=== PATIENT | female | born 1945 | race Caucasian/White ===

== ENCOUNTER 2020-01-08 08:11 | Outpatient (REF) | payer MEDICARE, OTHER, SELFPAY ==
--- NOTE | 2020-01-08 | MM_ITS ---
EXAMINATION: BONE DENSITOMETRY CLINICAL INDICATION: Disorders of bone. COMPARISON: Baseline BD dated 10/18/2017. TECHNIQUE: Using a [employer] DXA System (software version: 13.1) manufactured by [employer], dual-energy x-ray absorptiometry was performed of the lumbar spine and left hip. The images are of good technical quality. Summary results are attached. FINDINGS: AP SPINE L1-L3 (excluding L4): The data of L1-L4 has been changed to exclude the L4 vertebral body, because degenerative changes at this level may cause overestimation of lumbar spine density. Current: BMD 0.983 g/cm2, Z-score -0.4, T-score -1.6, osteopenia, 8.0% decrease from baseline (<5% change is not significant). Baseline: BMD 1.069 g/cm2. LEFT FEMUR, NECK: Current: BMD 0.773 g/cm2, Z-score -0.5, T-score -1.9, osteopenia. Baseline: BMD 0.790 g/cm2. LEFT FEMUR, TOTAL: Current: BMD 0.886 g/cm2, Z-score 0.2, T-score -1.0, normal, 1.6% increase from baseline (<5% change is not significant). Baseline: BMD 0.872 g/cm2. IDENTIFIED RISK FACTORS: Secondary osteoporosis (intestinal or bowel disease). Menopause. HISTORY OF FRACTURE: None listed. MEDICATIONS: Calcium supplement and/or multivitamin. Vitamin D. IMPRESSION: 1. DIAGNOSIS: Osteopenia based on the lowest T-score value of -1.9 in the femoral neck applying World Health Organization criteria. 2. 10-YEAR FRACTURE RISK PREDICTION, FRAX: Major osteoporotic fracture (clinical spine, forearm, hip or shoulder) 11.6%. Hip fracture 2.4%. 3. Treatment Recommendations: NOF guidelines recommend consideration for treatment in postmenopausal women and men age 50 and older presenting with the following: -A hip or vertebral (clinical or morphometric) fracture. -T-score less than or equal to -2.5 at the femoral neck or spine after appropriate evaluation to exclude secondary causes. -Low bone mass at the hip or spine and a 10-year fracture probability by FRAX of greater than or equal to 3% for hip fracture or greater than or equal to 20% for major osteoporotic fracture based on the [place] adapted WHO algorithm. 4. Other Recommendations: All treatment decisions require clinical judgment and consideration of individual patient factors, including patient preferences, comorbidities, previous drug use, risk factors not captured in the FRAX model (e.g. frailty, falls, vitamin D deficiency, increased bone turnover, interval significant decline in bone density) and possible under or overestimation of fracture risk by FRAX. Additional medical evaluation for secondary cause of low bone mineral density may be appropriate. FUTURE SCAN RECOMMENDATION: People with diagnosed cases of osteoporosis or at high risk for fracture should have regular bone mineral density tests. For patients eligible for Medicare, routine testing is allowed once every 2 years. The testing frequency can be increased to one year for patients who have rapidly progressing disease, those who are receiving or discontinuing medical therapy to restore bone mass, or have additional risk factors.
== END 2020-01-08 08:12 | disposition home or self-care (01) ==
LOC: HO.MAMMO 08:11
PROVIDERS: PCP Internal Medicine; Visit Provider Internal Medicine
DX: Z13.820 Encounter for screening for osteoporosis (principal); M85.80 Other specified disorders of bone density and structure, unspecified site; M85.9 Disorder of bone density and structure, unspecified; Z78.0 Asymptomatic menopausal state; Z79.899 Other long term (current) drug therapy
CPT/HCPCS: 77080

== ENCOUNTER 2021-01-10 08:06 | Outpatient (REF) | payer MEDICARE, OTHER, SELFPAY ==
[2021-01-10 10:19] LABS: MANUAL DIFF FLAG NO
[2021-01-10 10:29] LABS: Basophils Percent Auto 0.6 % (0-2); Eosinophils Percent Auto 0.8 % (0-4); Hematocrit 41.5 % (37-47); Hemoglobin 13.7 g/dl (12.0-16.0); Imm Gran Abs Auto 0.01 X10*3/uL (0.00-0.03); Imm Gran Pct Auto 0.2 % (0.0-0.4); Lymphocytes Absolute Auto 1.4 X10*3/uL (1.2-4.9); Lymphocytes Percent Auto 28.5 % (20-40); Mean Corpuscular Hemoglobin 32.9 pg (27.0-33.0); Mean Corpuscular Volume 99.8 fL (80-98); Mean Platelet Volume 10.9 fL (9.4-12.3); Monocytes Absolute Auto 0.5 X10*3/uL (0.1-1.2); Monocytes Percent Auto 10.2 % (2-11); Neutrophils Absolute Auto 2.9 X10*3/uL (2.0-8.3); Neutrophils Percent Auto 59.7 % (45-73); Platelet Count 264 X10*3/uL (160-400); Red Blood Count 4.16 X10*6/uL (4.20-5.50); Red Cell Distribution Width 11.4 % (11.0-16.0); White Blood Count 4.8 X10*3/uL (4.8-10.8)
[2021-01-10 11:03] LABS: Alanine Aminotransferase 16 U/L (0-31); Albumin Level 4.1 g/dL (3.5-5.0); Alkaline Phosphatase 73 U/L (39-117); Anion Gap 11 (12-20); Aspartate Amino Transferase 18 U/L (5-31); Bilirubin Total 0.8 mg/dL (0.0-1.0); Blood Urea Nitrogen 15 mg/dL (9-16); Calcium 9.7 mg/dL (8.4-10.2); Carbon Dioxide 28 mmol/L (22-29); Chloride 106 mmol/L (96-108); Cholesterol 147 mg/dL; Estimated Glomerular Filt Rate > 60; Glucose Random 105 mg/dL (60-115); HDL Cholesterol 57 mg/dL; LDL Cholesterol Calculated 73 mg/dl; Potassium 4.3 mmol/L (3.3-5.1); Sodium 141 mmol/L (135-145); Total Protein 7.1 g/dL (6.5-8.0); Triglycerides 87 mg/dL
[2021-01-10 11:26] LABS: Free T4 (Free Thyroxine) 1.05 ng/dL (0.71-1.85); Thyroid Stimulating Hormone 2.41 uIU/mL (0.32-4.0); Vitamin D 25-OH Total 39.8 ng/mL (>30)
[2021-01-10 11:32] LABS: Folate > 20.0 ng/mL (> or = 4.0); Vitamin B12 828 pg/mL (200-900)
== END 2021-01-10 08:07 | disposition home or self-care (01) ==
LOC: HO.10HDL 08:06
PROVIDERS: Visit Provider Internal Medicine
DX: E78.00 Pure hypercholesterolemia, unspecified (principal)
CPT/HCPCS: 36415; 80053; 80061; 82306; 82607; 82746; 84439; 84443; 85025

== ENCOUNTER → 2021-01-17 08:46 | Outpatient (BNVA) | payer MEDICARE, OTHER, SELFPAY | PROVIDERS: PCP Internal Medicine; Referring Provider Internal Medicine; Visit Provider Internal Medicine Cardiovascular Disease | DX: E78.00 Pure hypercholesterolemia, unspecified (principal) | CPT/HCPCS: 93005; 99212 ==

== ENCOUNTER 2021-10-04 07:45 | Day surgery (SDC) | payer MEDICARE, OTHER, SELFPAY ==
[2021-09-28 14:07] VITALS: BMI 31.7
--- NOTE | 2021-10-03 11:00 | HO.ANESPROP2 ---
Documented by User: Belem Milner NP 10/03/21 11:04 HPI - Anesthesia Eval Consult details Narrative: 76yo F for Colonoscopy PMFSH Active Problems Active Problems: All Active Problems (Updated 09/28/21 @ 14:01 by Pallavi Valle RN) Osteoarthritis of knees, bilateral (Acute) Annual physical exam (Acute) Osteopenia (Acute) Eczematous skin lesions (Acute) Obesity (BMI 30.0-34.9) (Acute) Age-related osteoporosis without current pathological fracture (Acute) COPD (chronic obstructive pulmonary disease) (Acute) GERD (gastroesophageal reflux disease) (Acute) Hypercholesterolemia (Acute) Past Medical History Medical History Allergic rhinitis COPD (chronic obstructive pulmonary disease) Diverticular disease Fibroids GERD (gastroesophageal reflux disease) Hypercholesterolemia 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 Pulmonary nodules Surgical History Surgical History H/O colonoscopy History of arthroplasty of right knee History of left knee replacement Lipoma Social History Social History Housing: House Alcohol intake: never Patient Tobacco Use Status: Never used Tobacco e-Cigarette/Vaping Use: Never Used Second Hand Smoke Exposure: No Use of substances other than those prescribed or required for medical reasons: No Are you DNR?: No Advance Directives: No Advance Directives Information Provided: Yes Patient : No service: No Current occupational status: retired Cognitive needs: No Hearing needs: No Vision needs: No Meds Allergies Allergy/AdvReac Type Severity Reaction Status Date / Time loratadine [Claritin] Allergy Mild Anxiety Verified 09/28/21 14:06 Robitussin Maximum Strength Allergy Mild Anxiety Uncoded 01/12/21 12:40 Home Medications Medication Instructions Recorded Confirmed Last Taken Type ascorbic acid (vitamin C) 500 mg 1,000 mg PO DAILY 01/12/21 09/28/21 Unknown History capsule cholecalciferol (vitamin D3) 25 25 mcg PO DAILY 01/12/21 09/28/21 Unknown History mcg (1,000 unit) capsule tumeric 100 mg-shaka 150 mg-olive 1 cap PO BID 01/12/21 10/04/21 09/29/21 History 50 mg-oreg 150 mg-caprylate capsule flaxseed oil 1,000 mg capsule 1,000 mg PO DAILY 09/28/21 09/28/21 Unknown History lactobacillus combo no.11 15 1 cap PO DAILY 09/28/21 09/28/21 Unknown History billion cell sprinkle capsule Exam Exam Date and Time: October 03, 2021 1100 Height,Weight and Vital Signs: Height 5 ft 4 in Weight 83.915 kg Pertinent Lab Results Pertinent Lab Results: Laboratory Tests 01/10/21 01/10/21 08:10 08:10 WBC 4.8 Hgb 13.7 Hct 41.5 Plt Count 264 Sodium 141 Potassium 4.3 Chloride 106 Carbon Dioxide 28 BUN 15 Creatinine 0.79 Narrative Narrative: EKG 12/2020 normal sinus rhythm with normal EKG Assessment and Plan Assessment Anesthesia Assessment: Chart Reviewed Documented by User: Evon Kinney MD 10/04/21 09:08 [facility] Past Medical History Medical History Allergic rhinitis COPD (chronic obstructive pulmonary disease) Diverticular disease Fibroids GERD (gastroesophageal reflux disease) Hypercholesterolemia 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 Pulmonary nodules Functional capacity: independent ambulation Patient : No Family History Family history of problems with anesthesia: No Surgical History Surgical History H/O colonoscopy History of arthroplasty of right knee History of left knee replacement Lipoma History of Problems with Anesthesia: No Social History Social History Housing: House Alcohol intake: never Patient Tobacco Use Status: Never used Tobacco e-Cigarette/Vaping Use: Never Used Second Hand Smoke Exposure: No Use of substances other than those prescribed or required for medical reasons: No Are you DNR?: No Advance Directives: No Advance Directives Information Provided: Yes Patient : No service: No Current occupational status: retired Cognitive needs: No Hearing needs: No Vision needs: No Meds Allergies Allergy/AdvReac Type Severity Reaction Status Date / Time loratadine [Claritin] Allergy Mild Anxiety Verified 09/28/21 14:06 Robitussin Maximum Strength Allergy Mild Anxiety Uncoded 01/12/21 12:40 Home Medications Medication Instructions Recorded Confirmed Last Taken Type ascorbic acid (vitamin C) 500 mg 1,000 mg PO DAILY 01/12/21 09/28/21 Unknown History capsule cholecalciferol (vitamin D3) 25 25 mcg PO DAILY 01/12/21 09/28/21 Unknown History mcg (1,000 unit) capsule tumeric 100 mg-shaka 150 mg-olive 1 cap PO BID 01/12/21 10/04/21 09/29/21 History 50 mg-oreg 150 mg-caprylate capsule flaxseed oil 1,000 mg capsule 1,000 mg PO DAILY 09/28/21 09/28/21 Unknown History lactobacillus combo no.11 15 1 cap PO DAILY 09/28/21 09/28/21 Unknown History billion cell sprinkle capsule Exam Airway Mallampati Class: II TM Dist: >3cm Neck ROM: Full Heart: RRR Lungs: CTA Assessment and Plan Final Anesthetic Review Family History of Problems with Anesthesia: No History of Problems with Anesthesia: No ASA Class: II Final Preanesthetic Review: No Changes in Pt Med Stat, Meds/Allgs Chart Reviewed, Consent Obtained/Reviewed and Anes Risks/Benef Reviewed Patient Risk: Low Procedure Risk: Low Anesthetic Plan Anesthetic Plan: MAC: Disposition: Standard PACU
[2021-10-04 08:13] VITALS: BMI 30.5
[2021-10-04 08:17] VITALS: BP 154/82; PULSE 75; RESP 18; TEMP 35.9; O2SAT 97
[2021-10-04] MEDS: Lactated Ringers 1,000 ML 100 ML IVCONT (08:20)
--- NOTE | 2021-10-04 08:56 | MHC.SHP ---
Pre-Procedural Eval Section A Date of Service: 10/04/21 Section B Chief Complaint: screening Details of Present Illness: see H&P no changes Relevant Family History (Specify if Yes): No Relevant Social History: None Present Medications: see Short Stay Collaborative assessment Medical History: No relevant PMH History of Previous Operations: No relevant previous surgery Allergies: Allergies Allergy/AdvReac Type Severity Reaction Status Date / Time loratadine [Claritin] Allergy Mild Anxiety Verified 09/28/21 14:06 Robitussin Maximum Strength Allergy Mild Anxiety Uncoded 01/12/21 12:40 Review of Systems Sugical H&P ROS: Negative: Constitution, Cardiovascular, Respiratory, Neurological, Psychiatric, Hem-Onc, Allergic/Immunologic, Gastrointestinal, Genitourinary, Musculoskeletal, Integumentary, Endocrine and Eyes/Ears/Nose/Throat Exam Surgical H&P Exam: Normal: HEENT, Normal: Heart, Normal: Lungs, Normal: Extremities, Normal: Abdomen, Normal: Skin and Normal: Neurological Plan Diagnosis/Plan: Unchanged I have reviewed the history and physical and performed a pertinent physical examination on my patient. No changes have occurred unless specified.
--- NOTE | 2021-10-04 09:22 | P.BOP_ITS ---
Brief Operative Note Date of Service: 10/04/21 Pre-op diagnosis: screening Post-op diagnosis: same Surgeon: Shine Cantu Anesthesia: MAC Was an Prepress Stripper used for this Procedure?: No Estimated blood loss (mL): 2 Pathology: other Condition: stable Disposition: PACU
[2021-10-04 09:24] VITALS: BP 95/48; PULSE 62; RESP 16; TEMP 36.1; O2SAT 95
[2021-10-04 09:39] VITALS: BP 115/65; PULSE 68; RESP 16; O2SAT 98
[2021-10-04 09:54] VITALS: BP 121/67; PULSE 62; RESP 16; TEMP 36.1; O2SAT 98
--- NOTE | 2021-10-04 11:01 | HO.POSTANES ---
Post Anesthesia Evaluation Post Anesthesia Evaluation Vital Signs: Vital Signs Temp Pulse Resp BP Pulse Ox O2 Del Method 10/04/21 09:54 97.0 F 62 16 121/67 98 Room Air 10/04/21 09:39 68 16 115/65 98 Room Air 10/04/21 09:24 97.0 F 62 16 95/48 L 95 Room Air 10/04/21 08:17 96.7 F L 75 18 154/82 H 97 Room Air Anesthesia: Monitored Mental Status: Awake Pain Control: Satisfactory Nausea/Vomiting: None Hydration: Adequate Anesthesia-Related Issues: No Anes. Related Issues
--- NOTE | 2021-10-04 12:00 | OP_ITS ---
SURGEON: Shine Cantu MD INDICATIONS: Colon cancer screening. PREOPERATIVE DIAGNOSIS: POSTOPERATIVE DIAGNOSIS: PROCEDURE PERFORMED: Colonoscopy to the terminal ileum with snare polypectomy and biopsy. ESTIMATED BLOOD LOSS: COMPLICATIONS: ANESTHESIA: ASSISTANTS: SPECIMENS: MEDICATIONS: Monitored anesthesia care. DESCRIPTION OF PROCEDURE: History and physical were performed. The risks and benefits of the procedure were explained to the patient. Informed consent was obtained. The patient was placed in the left lateral decubitus position. A digital rectal exam was performed and was found to be normal. The Olympus pediatric video colonoscope was introduced into the rectum and advanced to the cecum without difficulty. The cecum was identified by transillumination, palpation, and identification of ileocecal valve. Examination was performed and the scope was removed. She tolerated the procedure well and was taken to recovery area in stable condition. FINDINGS: The terminal ileum was examined and appeared normal. The visualized colonic mucosa was normal. The quality of prep was good. Two polyps were identified at 60 cm from the anal verge. The largest measured approximately 8-10 mm and was flat. This was removed with a snare and recovered via suction, a less than 5 mm polyp next to it was removed with a biopsy forceps. No other polyps were identified. There was moderate sigmoid diverticulosis with scattered diverticula throughout. Retroflexed examination showed large internal hemorrhoids. IMPRESSION: Colon polyps. RECOMMENDATION: Follow up biopsy results. MD SAMANTHA Sandoval/URIEL / [id number]
== END 2021-10-04 10:18 | disposition home or self-care (01) ==
PROVIDERS: PCP Internal Medicine; Visit Provider Internal Medicine Gastroenterology
PROC: 0DJD8ZZ Inspection of Lower Intestinal Tract, Via Natural or Artificial Opening Endoscopic (ICD-10-PCS; CPT 45378; principal; 2021-10-04 09:00)
DX: Z12.11 Encounter for screening for malignant neoplasm of colon (principal); Z86.010 Personal history of colon polyps; D12.4 Benign neoplasm of descending colon; K57.30 Diverticulosis of large intestine without perforation or abscess without bleeding; K64.8 Other hemorrhoids; K21.9 Gastro-esophageal reflux disease without esophagitis; M81.0 Age-related osteoporosis without current pathological fracture; J44.9 Chronic obstructive pulmonary disease, unspecified; E78.00 Pure hypercholesterolemia, unspecified; Z79.899 Other long term (current) drug therapy; Z88.8 Allergy status to other drugs, medicaments and biological substances; Z96.652 Presence of left artificial knee joint
CPT/HCPCS: 45385; 45380; 88305

== ENCOUNTER 2022-01-10 09:59 | Outpatient (REF) | payer MEDICARE, OTHER, SELFPAY ==
--- NOTE | ~2022-01-10 | MM_ITS ---
EXAMINATION: BONE DENSITOMETRY CLINICAL INDICATION: Age-related osteoporosis without current pathological fracture. COMPARISON: Previous BD dated 01/08/2020 and baseline BD dated 10/18/2017. TECHNIQUE: Using a [employer] DXA System (software version: 13.1) manufactured by [employer], dual-energy x-ray absorptiometry was performed of the lumbar spine and left hip. The images are of good technical quality. Summary results are attached. FINDINGS: AP SPINE L1-L3 (excluding L4): The data of L1-L4 has been changed to exclude the L4 vertebral body, because degenerative changes at this level may cause overestimation of lumbar spine density. Current: BMD 1.025 g/cm2, Z-score 0.0, T-score -1.2, osteopenia, 4.3% increase from previous, 4.1% decrease from baseline (<5% change is not significant). Prior: BMD 0.983 g/cm2. Baseline: BMD 1.069 g/cm2. LEFT FEMUR, NECK: Current: BMD 0.784 g/cm2, Z-score -0.3, T-score -1.8, osteopenia. Prior: BMD 0.773 g/cm2. Baseline: BMD 0.790 g/cm2. LEFT FEMUR, TOTAL: Current: BMD 0.893 g/cm2, Z-score 0.4, T-score -0.9, normal, 0.8% increase from previous, 2.4% increase from baseline (<5% change is not significant). Prior: BMD 0.886 g/cm2. Baseline: BMD 0.872 g/cm2. IDENTIFIED RISK FACTORS: Low calcium intake, menopause. HISTORY OF FRACTURE: None listed. MEDICATIONS: Calcium supplements or multivitamin, vitamin D. MM/XR DEXA axial skeleton IMPRESSION: 1. DIAGNOSIS: Osteopenia based on the lowest T-score value of -1.8 in the femoral neck applying World Health Organization criteria. 2. 10-YEAR FRACTURE RISK PREDICTION, FRAX: Major osteoporotic fracture (clinical spine, forearm, hip or shoulder) 11.8%. Hip fracture 2.6%. 3. Treatment Recommendations: NOF guidelines recommend consideration for treatment in postmenopausal women and men age 50 and older presenting with the following: -A hip or vertebral (clinical or morphometric) fracture. -T-score less than or equal to -2.5 at the femoral neck or spine after appropriate evaluation to exclude secondary causes. -Low bone mass at the hip or spine and a 10-year fracture probability by FRAX of greater than or equal to 3% for hip fracture or greater than or equal to 20% for major osteoporotic fracture based on the [place] adapted WHO algorithm. 4. Other Recommendations: All treatment decisions require clinical judgment and consideration of individual patient factors, including patient preferences, comorbidities, previous drug use, risk factors not captured in the FRAX model (e.g. frailty, falls, vitamin D deficiency, increased bone turnover, interval significant decline in bone density) and possible under or overestimation of fracture risk by FRAX. Additional medical evaluation for secondary cause of low bone mineral density may be appropriate. FUTURE SCAN RECOMMENDATION: People with diagnosed cases of osteoporosis or at high risk for fracture should have regular bone mineral density tests. For patients eligible for Medicare, routine testing is allowed once every 2 years. The testing frequency can be increased to one year for patients who have rapidly progressing disease, those who are receiving or discontinuing medical therapy to restore bone mass, or have additional risk factors.
== END 2022-01-10 10:00 | disposition home or self-care (01) ==
LOC: HO.MAMMO 09:59
PROVIDERS: Visit Provider Internal Medicine
DX: Z13.820 Encounter for screening for osteoporosis (principal); M81.0 Age-related osteoporosis without current pathological fracture; Z78.0 Asymptomatic menopausal state
CPT/HCPCS: 77080

== ENCOUNTER 2022-01-14 07:15 | Outpatient (REF) | payer MEDICARE, OTHER, SELFPAY ==
[2022-01-14 07:39] LABS: MANUAL DIFF FLAG NO
[2022-01-14 08:30] LABS: Basophils Percent Auto 0.7 % (0-2); Eosinophils Absolute Auto 0.1 X10*3/uL (0.0-0.4); Eosinophils Percent Auto 2.1 % (0-4); Hematocrit 42.8 % (37.0-47.0); Imm Gran Abs Auto 0.01 X10*3/uL (0.00-0.03); Imm Gran Pct Auto 0.2 % (0.0-0.4); Lymphocytes Absolute Auto 1.4 X10*3/uL (1.2-4.9); Lymphocytes Percent Auto 33.3 % (20-40); Mean Corpuscular HGB Conc 32.7 g/dl (31.0-35.0); Mean Corpuscular Hemoglobin 32.6 pg (27.0-33.0); Mean Corpuscular Volume 99.5 fL (80.0-98.0); Mean Platelet Volume 11.4 fL (9.4-12.3); Monocytes Absolute Auto 0.4 X10*3/uL (0.1-1.2); Monocytes Percent Auto 10.5 % (2-11); Neutrophils Absolute Auto 2.2 x10*3/uL (2.0-8.3); Neutrophils Percent Auto 53.2 % (45-73); Platelet Count 261 X10*3/uL (160-400); Red Cell Distribution Width 11.6 % (11.0-16.0); White Blood Count 4.2 X10*3/uL (4.8-10.8)
[2022-01-14 08:40] LABS: Estimated Average Glucose 100 mg/dL; Hemoglobin A1c % 5.1 %
[2022-01-14 09:11] LABS: Alanine Aminotransferase 17 U/L (0-31); Albumin Level 4.3 g/dL (3.5-5.0); Alkaline Phosphatase 77 U/L (39-117); Anion Gap 15 (12-20); Aspartate Amino Transferase 18 U/L (5-31); Bilirubin Total 0.9 mg/dL (0.0-1.0); Blood Urea Nitrogen 16 mg/dL (9-16); Calcium 9.7 mg/dL (8.4-10.2); Carbon Dioxide 27 mmol/L (22-29); Chloride 105 mmol/L (96-108); Cholesterol 128 mg/dL; Estimated Glomerular Filt Rate > 60; Glucose Random 117 mg/dL (60-115); HDL Cholesterol 50 mg/dL; LDL Cholesterol Calculated 66 mg/dl; Sodium 142 mmol/L (135-145); Total Protein 7.3 g/dL (6.5-8.0); Triglycerides 62 mg/dL; Uric Acid 7.1 mg/dL (2.4-5.7)
[2022-01-14 09:34] LABS: Free T4 (Free Thyroxine) 1.12 ng/dL (0.71-1.85); Thyroid Stimulating Hormone 2.22 uIU/mL (0.32-4.0); Vitamin D 25-OH Total 41.9 ng/mL (>30)
[2022-01-14 09:38] LABS: Folate > 20.0 ng/mL (> or = 4.0); Vitamin B12 911 pg/mL (200-900)
[2022-01-14 10:33] LABS: Appearance Urine Clear; Color Urine Yellow; Glucose Urine UA Negative (Negative); Leukocyte Esterase Urine Small (1+) (Negative); Nitrite Urine Negative (Negative); PH 5.5 (5.0-9.0); UMIC TRIGGER UA YES; Urine Blood Negative (Negative); Urine Ketones Negative (Negative); Urine Protein Negative (Neg-Trace)
[2022-01-14 11:02] LABS: Bacteria Urine None Seen (None Seen); Hyaline Casts Urine 0-2 /LPF (0-2); RBC Urine 0-2 /HPF (0-2); Squamous Epithelial Cell Urine 0-2 /HPF (0-2); WBC Urine 0-5 /HPF (0-5)
[2022-01-16 16:48] LABS: CRP High Sensitivity 1.5 mg/L
== END 2022-01-14 07:16 | disposition home or self-care (01) ==
LOC: HO.LAB 07:15
PROVIDERS: PCP Internal Medicine; Visit Provider Internal Medicine
DX: E78.00 Pure hypercholesterolemia, unspecified (principal); M81.0 Age-related osteoporosis without current pathological fracture; R73.02 Impaired glucose tolerance (oral)
CPT/HCPCS: 36415; 80053; 80061; 81001; 82306; 82607; 82746; 83036; 84439; 84443; 84550; 85025; 86141

== ENCOUNTER → 2022-01-17 14:32 | Outpatient (BNVA) | payer MEDICARE, OTHER, SELFPAY | PROVIDERS: PCP Internal Medicine; Referring Provider Internal Medicine; Visit Provider Internal Medicine Cardiovascular Disease | DX: I83.893 Varicose veins of bilateral lower extremities with other complications (principal); E78.00 Pure hypercholesterolemia, unspecified | CPT/HCPCS: 93005; 99212 ==

== ENCOUNTER 2023-01-18 14:08 | Outpatient (AMB) | payer MEDICARE, OTHER, SELFPAY ==
--- NOTE | 2023-01-18 14:17 | MHC.OFFVIS ---
Intake Vital Signs 01/18/23 14:18 Height 5 ft 4 in Weight 176 lb 5.917 oz BMI 30.3 BP 126/80 Blood Pressure Location Lt brachial Position Sitting Pulse 67 Intake Visit Reasons: 1 year follow up Intake Note: 1 year follow-up [facility] ekg Director Hedis Required: No Allergies loratadine [Claritin] Allergy (Mild, Verified 08/16/22 15:09) Anxiety guaifenesin [From Mucinex] Adverse Reaction (Verified 08/16/22 15:09) Diarrhea Robitussin Maximum Strength Allergy (Mild, Uncoded 01/12/21 12:40) Anxiety Medication List - Last Reconciled 01/18/23 by Tobin Mayberry MD ascorbic acid (vitamin C) 1,000 mg PO DAILY Bifidobacterium infantis (Align) 4 mg PO BEDTIME 90 days cholecalciferol (vitamin D3) 25 mcg PO DAILY omega 5-lef-wof-fish oil 1,200 (144-216) mg (Fish Oil) caps PO rosuvastatin 20 mg PO DAILY 90 days HPI HPI Comments History of Present Illness Details William comes for follow-up. She continues to have discomfort in both the legs and she is standing for long period time. No claudication like symptoms. No exertional chest pain or shortness of breath. No orthopnea, PND, leg edema. Takes all her medications. No recent lipid panel. 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 Pulmonary nodules Diverticular disease Pancreatic mass COPD (chronic obstructive pulmonary disease) Allergic rhinitis GERD (gastroesophageal reflux disease) Hypercholesterolemia Surgical History H/O colonoscopy History of arthroplasty of right knee History of left knee replacement [place] Social History Housing: House Alcohol intake: never Patient Tobacco Use Status: Never used Tobacco e-Cigarette/Vaping Use: Never Used Second Hand Smoke Exposure: No service: No Current occupational status: retired Cognitive needs: No Hearing needs: No Vision needs: No Review of Systems Const Denies chills, Denies fatigue, Denies fever(s), Denies frequent falls, Denies weakness, Denies weight gain and Denies weight loss ENT Denies dizziness Card Denies chest pain, Denies leg edema, Denies lightheadedness, Denies palpitations, Denies dyspnea, Denies dyspnea on exertion, Denies orthopnea and Denies other (loss of consciousness) Resp Denies cough, Denies dyspnea and Denies dyspnea on exertion GI Denies hematochezia and Denies change in stool character Musc Denies abnormal gait, Denies muscle weakness, Denies numbness, Denies radiating pain into limb and Denies tingling Neuro Denies abnormal gait, Denies dizziness, Denies frequent falls, Denies numbness, Denies tingling and Denies weakness Endo Denies fatigue and Denies palpitations Physical Exam Vital Signs: Last Vital Signs Pulse 67 01/18/23 14:18 BP 126/80 01/18/23 14:18 BMI result Body Mass Index 30.3 Const General: cooperative, comfortable, no acute distress, alert and awake Nutritional Appearance: overweight Orientation/consciousness: patient oriented x3 Limitations: no limitations Neck Neck: Yes trachea midline, Yes supple and Yes no JVD Resp Effort & Inspection: normal respiratory effort Auscultation: clear to auscultation bilaterally Cardio Jugular venous distension: no JVD Palpation: normal PMI Rate: regular rate Rhythm: regular rhythm Heart sounds: S1 normal heart sound present, S2 normal heart sound present, no click, no gallops, no murmurs and no rubs GI Auscultation: normal bowel sounds Skin General skin exam: no rashes or lesions noted Neuro General: patient oriented x3 and no focal motor deficits Extrem General: Yes no clubbing, cyanosis or edema, Yes venous stasis dermatitis and Yes other (Bilateral varicosities) Psych Appearance: grossly normal Office Procedures EKG Details: EKG shows normal sinus rhythm with normal EKG 23552-[id number], Complete Assessment & Plan Assessment & Plan (1) Hypercholesterolemia: Code(s): E78.00 - Pure hypercholesterolemia, unspecified Plan: Hyperlipidemia well optimized on statin therapy. No current symptoms. No further workup is indicated at this point time. Continue monitor lipid panel annual annual basis. Also measures CRP on a regular basis. Encouraged to continue to participate in physical activity as tolerated. Continue participate in heart healthy lifestyle. Will follow up in the clinic in 1 year's time on her request. Coding Level of Care Code Est Pt Level 3 (92703) Diagnoses Hypercholesterolemia E78.00 CPT Codes EKG - CPT: 73354-[id number], Complete ([id number])
[2023-01-18 14:18] VITALS: BP 126/80; PULSE 67; BMI 30.3
== END 2023-01-18 14:43 | disposition home or self-care (01) ==
PROVIDERS: Visit Provider Internal Medicine Cardiovascular Disease
DX: E78.00 Pure hypercholesterolemia, unspecified (principal)
CPT/HCPCS: 93010; 99213

== ENCOUNTER → 2023-01-18 14:08 | Outpatient (BNVA) | payer MEDICARE, OTHER, SELFPAY | PROVIDERS: Visit Provider Internal Medicine Cardiovascular Disease | DX: E78.00 Pure hypercholesterolemia, unspecified (principal) | CPT/HCPCS: 93005; 99212 ==

== ENCOUNTER 2023-01-23 07:37 | Outpatient (REF) | payer MEDICARE, OTHER, SELFPAY ==
[2023-01-23 10:40] LABS: MANUAL DIFF FLAG NO
[2023-01-23 10:48] LABS: Basophils Percent Auto 0.4 % (0-2); Eosinophils Percent Auto 0.9 % (0-4); Hematocrit 42.8 % (37.0-47.0); Hemoglobin 13.8 g/dl (12.0-16.0); Imm Gran Abs Auto 0.01 X10*3/uL (0.00-0.03); Imm Gran Pct Auto 0.2 % (0.0-0.4); Lymphocytes Absolute Auto 1.4 X10*3/uL (1.2-4.9); Lymphocytes Percent Auto 31.6 % (20-40); Mean Corpuscular HGB Conc 32.2 g/dl (31.0-35.0); Mean Corpuscular Volume 99.3 fL (80.0-98.0); Mean Platelet Volume 11.2 fL (9.4-12.3); Monocytes Absolute Auto 0.5 X10*3/uL (0.1-1.2); Monocytes Percent Auto 10.6 % (2-11); Neutrophils Absolute Auto 2.5 x10*3/uL (2.0-8.3); Neutrophils Percent Auto 56.3 % (45-73); Platelet Count 280 X10*3/uL (160-400); Red Blood Count 4.31 X10*6/uL (4.20-5.50); Red Cell Distribution Width 11.4 % (11.0-16.0); White Blood Count 4.5 X10*3/uL (4.8-10.8)
[2023-01-23 11:03] LABS: Alanine Aminotransferase 18 U/L (0-31); Albumin Level 4.3 g/dL (3.5-5.0); Alkaline Phosphatase 73 U/L (39-117); Anion Gap 14 (12-20); Aspartate Amino Transferase 18 U/L (5-31); Bilirubin Total 0.7 mg/dL (0.0-1.0); Blood Urea Nitrogen 15 mg/dL (9-16); Carbon Dioxide 25 mmol/L (22-29); Chloride 107 mmol/L (96-108); Cholesterol 144 mg/dL (<200); Estimated Glomerular Filt Rate > 60; Glucose Random 107 mg/dL (60-115); HDL Cholesterol 51 mg/dL (>40); LDL Cholesterol Calculated 76 mg/dL (<100); Potassium 4.5 mmol/L (3.3-5.1); Sodium 141 mmol/L (135-145); Total Protein 7.7 g/dL (6.5-8.0); Triglycerides 85 mg/dL (<150)
[2023-01-23 11:24] LABS: Free T4 (Free Thyroxine) 0.92 ng/dL (0.71-1.85); Thyroid Stimulating Hormone 1.92 uIU/mL (0.32-4.0); Vitamin D 25-OH Total 50.8 ng/mL (>30)
[2023-01-23 11:29] LABS: Vitamin B12 775 pg/mL (200-900)
== END 2023-01-23 07:38 | disposition home or self-care (01) ==
LOC: HO.10HDL 07:37
PROVIDERS: Visit Provider Internal Medicine
DX: E78.00 Pure hypercholesterolemia, unspecified (principal); E55.9 Vitamin D deficiency, unspecified; M85.80 Other specified disorders of bone density and structure, unspecified site
CPT/HCPCS: 36415; 80053; 80061; 82306; 82607; 82746; 84439; 84443; 85025

== ENCOUNTER 2023-01-25 12:41 | Outpatient (AMB) | payer MEDICARE, OTHER, SELFPAY ==
[2023-01-25 12:45] VITALS: BP 130/76; PULSE 70; O2SAT 98; BMI 30.4
--- NOTE | 2023-01-25 12:45 | AM.OFFVISMDC ---
Intake Vital Signs 01/25/23 12:45 Height 5 ft 4 in Weight 177 lb 0.6 oz BMI 30.4 BP 130/76 Blood Pressure Location Lt brachial Position Sitting Pulse 70 Pulse Source Pulse Oximeter Pulse Oximetry (%) 98 Oxygen Delivery Method Room Air Intake Visit Reasons: SWV G0439 Obstetrician Gynecologist Required: No Allergies loratadine [Claritin] Allergy (Mild, Verified 01/25/23 12:45) Anxiety guaifenesin [From Mucinex] Adverse Reaction (Verified 01/25/23 12:45) Diarrhea Robitussin Maximum Strength Allergy (Mild, Uncoded 01/25/23 12:45) Anxiety HPI HPI Comments History of Present Illness Details 77-year-old female history of COPD, hypercholesteremia, GERD and osteopenia. Patient and Dr. Romero last seen in July 2022, presents today for subsequent annual well visit. Mammogram:September 2022 negative. Bone density completed 01/10/2022; shows osteopenia Colonoscopy done in September 2021: Patient states Dr. Cantu said she doesn't need any more colonoscopy. Patient follows with Dr. Mota for eye exams, Appointment sunday. Follows with obgyn yearly for fibrois hx Patient states she does have healthcare proxy and MOLST forms completed home patient advised to bring copies and to office to be scanned to chart. [place] of care was reviewed with patient patient was provided with a written screening schedule. 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 Pulmonary nodules Diverticular disease Pancreatic mass COPD (chronic obstructive pulmonary disease) Allergic rhinitis GERD (gastroesophageal reflux disease) Hypercholesterolemia Surgical History H/O colonoscopy History of arthroplasty of right knee History of left knee replacement [place] Social History Housing: House Alcohol intake: never Patient Tobacco Use Status: Never used Tobacco e-Cigarette/Vaping Use: Never Used Second Hand Smoke Exposure: No service: No Current occupational status: retired Cognitive needs: No Hearing needs: No Vision needs: No Questionnaire Medicare Wellness Checkup [age] What gender do you identify with?: female During the past 4 weeks, how much have you been bothered by emotional problems such as feeling anxious, depressed, irritable, sad or downhearted, and blue?: not at all During the past 4 weeks, has your physical & emotional health limited your social activities with family, friends, neighbors, or groups?: not at all During the past 4 weeks, how much bodily pain have you generally had?: very mild pain During the past 4 weeks, was someone available to help you if you needed & wanted help?: yes, as much as I wanted During the past 4 weeks, what was the hardest physical activity you could do for at least 2 minutes?: very heavy Can you get to places out of walking distance without help? (For eg., can you travel alone on buses, taxis or drive your car?): Yes Can you go shopping for groceries or clothes without someone's help?: Yes Can you prepare your own meals?: Yes Can you do your housework without help?: Yes Because of any health problems, do you need the help of another person with your personal care needs such as eating, bathing, dressing or getting around the house?: No Can you handle your own money without help?: Yes During the past 4 weeks, how would you rate your health in general?: very good During the past 4 weeks how have things been going for you?: very well; could hardly better Are you having difficulties driving your car?: no Do you always fasten your seat belt when you are in a car?: yes, usually During past 4 weeks, have you been bothered by the following: never: Falling or dizzy when standing up, Sexual problems?, Trouble eating well?, Teeth or denture problems?, Problems using the telephone? and Tiredness or fatigue? Have you fallen 2 or more times in the past year?: No Are you afraid of falling?: No Are you a smoker?: no During the past 4 weeks, how many drinks of wine, beer, or other alcoholic beverages did you have?: no alcohol at all Do you exercise for about 20 minutes 3 or more times a week?: yes, most of the time Have you been given information to help with the following?: yes: Hazards in your house that might hurt you? and yes: Keeping track of your medications? How often do you have trouble taking medicines the way you have been told to take them?: I always take medicine as prescribed How confident are you that you can control & manage most of your health problems?: very confident What is your race?: White Activity of Daily Living Bathing - sponge bath, tub bath or shower: receives no assistance (gets in/out by self, if usual bathing means Dressing - getting clothes from closets & drawers, including inner/outer garments & fasteners.: gets clothes & gets completely dressed without help Toileting - going to the 'toilet room' for urine/bowel elimination & cleaning self/arranging clothes: goes to toilet room, cleans self, arranges clothes without help Transfer: moves in & out of bed and chair without help (may use support object) Continence: has occasional 'accidents' (little urinary leakage at night. ) Feeding: feeds self without help Total Score: 0 Information obtained from: patient Using telephone: independent Traveling: independent Shopping: independent Preparing meals: independent Housework: independent Taking medicine: independent Managing money: independent PHQ-9 Over the last 2 weeks, how often have you been bothered by any of the following problems? 1. Little interest or pleasure in doing things: not at all 2. Feeling down, depressed, or hopeless: not at all 3. Trouble falling or staying asleep, or sleeping too much: several days 4. Feeling tired or having little energy: not at all 5. Poor appetite or overeating: not at all 6. Feeling bad about yourself - or that you are a failure or have let yourself or your family down: not at all 7. Trouble concentrating on things, such as reading the newspaper or watching television: not at all 8. Moving or speaking so slowly that other people could have noticed. Or the opposite - being so fidgety or restless that you have been moving around a lot more than usual: not at all 9. Thoughts that you would be better off or of hurting yourself in some way: not at all Total score: 1 Depression Screening Interpretation: Positive Depression Screening Follow-up: Declines treatment Depression Screening Done: Yes 72076 - PHQ-9 Billing: Yes Source: Developed by Drs. Dexter Ruiz, Yolande Hobbs, Riccardo Bennett and colleagues, with an educational timi from [employer]. Physical Exam Vital Signs: Last Vital Signs Pulse 70 01/25/23 12:45 BP 130/76 01/25/23 12:45 Pulse Ox 98 01/25/23 12:45 Oxygen Delivery Method Room Air 01/25/23 12:45 BMI result Body Mass Index 30.4 Const General: cooperative and no acute distress Orientation/consciousness: patient oriented x3 HEENT Ears: other (whisper test: pass) Neuro General: patient oriented x3 Gait exam (Neuro): Normal gait present Coordination: tandem gait normal and Romberg test negative Assessment & Plan Assessment & Plan (1) Hypercholesterolemia: Code(s): E78.00 - Pure hypercholesterolemia, unspecified Plan: Continue on statin medication. (2) Medicare annual wellness visit, subsequent: Code(s): Z00.00 - Encounter for general adult medical examination without abnormal findings Plan: Follow-up in 1 year. Plan Follow-up in 6 months. Orders: Orders Comprehensive [place]. Panel Fast 6 Months E78.00 - Pure hypercholesterolemia, unspecified Hemoglobin A1c 6 Months R73.01 - Impaired fasting glucose UA CC w/rflx Micro + Cult 6 Months R30.0 - Dysuria Lipid Panel 6 Months E78.00 - Pure hypercholesterolemia, unspecified TSH reflex Free T4 6 Months E78.00 - Pure hypercholesterolemia, unspecified Quality Reporting (2019) Depression/Bipolar (159/160/161/177) PHQ-9: Total score: 1 Coding Level of Care Code Medicare Subsequent (G0439) Diagnoses Hypercholesterolemia E78.00 Medicare annual wellness visit, subsequent Z00.00 CPT Codes Advance Care Planning - Time spent: 1-15 minutes, not on file ([id number]) Advance Care Planning Advance Care Planning discussion: Exists, not on file Date of discussion: 01/25/23 Forms completed: Health Care Proxy and MOLST Time spent: 1-15 minutes, not on file Actual minutes spent: 1 Did not discuss due to Cultural/Spiritual beliefs: No
== END 2023-01-25 13:30 | disposition home or self-care (01) ==
PROVIDERS: Visit Provider Nurse Practitioner Family
DX: E78.00 Pure hypercholesterolemia, unspecified (principal); Z00.00 Encounter for general adult medical examination without abnormal findings
CPT/HCPCS: 1124F; G0439

== ENCOUNTER 2023-08-07 13:12 | Outpatient (AMB) | payer MEDICARE, OTHER, SELFPAY ==
--- NOTE | 2023-08-07 13:20 | A.OFFPC_ITS ---
Vital Signs 08/07/23 13:21 Height 5 ft 4 in BP 124/82 Blood Pressure Location Lt brachial Position Sitting Pulse 80 Pulse Source Pulse Oximeter Pulse Oximetry (%) 96 Oxygen Delivery Method Room Air Intake Visit Reasons: 6 month f/u Intake Note: Patient is here to follow up on 6 months Technologist Development Required: No Allergies loratadine [Claritin] Allergy (Mild, Verified 08/07/23 13:31) Anxiety guaifenesin [From Mucinex] Adverse Reaction (Verified 08/07/23 13:31) Diarrhea Robitussin Maximum Strength Allergy (Mild, Uncoded 08/07/23 13:31) Anxiety Tobacco use date assessed: 08/07/23 Fall risk assessment: No Falls in past year Last assessed Fall Risk: 08/07/23 Dental Screening Dental Screen Date: 08/07/23 Did you have a dental visit in the last 12 months?: Yes Did you have a dental problem in the last 6 months where you did not have access to dental care?: No Was dental information given to patient?: Patient has dentist HPI 6 month f/u HPI Details 77-year-old obese female with hyperchole sterolemia GERD COPD peripheral vascular disease last seen in January 2023 coming in for follow-up. Patient's colonoscopy is up-to-date September 2021 mammogram is do bone density is up-to-date. [facility] Medical History Age-related osteoporosis without current pathological fracture Fibroids 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 Pulmonary nodules Diverticular disease Pancreatic mass COPD (chronic obstructive pulmonary disease) Allergic rhinitis GERD (gastroesophageal reflux disease) Hypercholesterolemia Surgical History H/O colonoscopy History of arthroplasty of right knee History of left knee replacement [place] Social History Housing: House Alcohol intake: never Patient Tobacco Use Status: Never used Tobacco e-Cigarette/Vaping Use: Never Used Second Hand Smoke Exposure: No service: No Current occupational status: retired Cognitive needs: No Hearing needs: No Vision needs: No Questionnaire Thrive Questionnaire Date Thrive assessed: 08/16/22 AUDIT C Alcohol Use Questionnaire (AUDIT-C) 1. How often do you have a drink containing alcohol?: Never 2. How many drinks containing alcohol do you have on a typical day when you are drinking?: 1 or 2 (0) 3. How often do you have six or more drinks on one occasion?: Never Total Score: 0 MARINA-7 AMB Questionnaire MARINA-7 Date MARINA - 7 assessed: 08/07/23 Feeling nervous, anxious, or on edge: 0 = Not at all Not being able to stop or control worryin = Not at all Worrying too much about different things: 0 = Not at all Trouble relaxin = Not at all Being so restless that it is hard to sit still: 0 = Not at all Becoming easily annoyed or irritable: 0 = Not at all Feeling afraid as if something awful might happen: 0 = Not at all Total MARINA-7 score (0-4 normal; 5-9 mild; 10-14 moderate; 15-21 severe): 0 Source: Developed by Drs. Dexter Ruiz, Yolande Hobbs, Riccardo Bennett and colleagues, with an educational timi from [email or web address]. MARINA-7 Assessment Billing MARINA-7 Assessment Tool: MARINA-7 Assessment 52801 Physical exam (Primary Care) Vital Signs: Last Vital Signs Pulse 80 08/07/23 13:21 BP 124/82 08/07/23 13:21 Pulse Ox 96 08/07/23 13:21 Oxygen Delivery Method Room Air 08/07/23 13:21 Tobacco/Smoking Status: Tobacco use Status Tobacco use date assessed 08/07/23 08/07/23 13:22 Patient Tobacco Use Status Never used Tobacco 08/07/23 13:22 e-Cigarette/Vaping Use Never Used 08/07/23 13:22 Thrive Assessment: Date of Thrive Assessment Date Thrive assessed 08/16/22 08/07/23 13:22 Const General: alert; No acute distress Eyes Conjunctivae: conjunctivae normal Resp Auscultation: clear to auscultation bilaterally Cardio Rate: regular rate Rhythm: regular rhythm GI Inspection: Yes normal to inspection Extrem General: Yes normal to inspection and No edema Assessment and Plan Assessment & Plan (1) Hypercholesterolemia: Code(s): E78.00 - Pure hypercholesterolemia, unspecified Plan: Avoid fried foods, chicken skin, eggs, butter margarine, pastries and meat. Be it pork or beef they have a lot of cholesterol LDL goal of less than 130 and triglyceride of less than 150 patient is on rosuvastatin 20 mg once a day (2) GERD (gastroesophageal reflux disease): Code(s): K21.9 - Gastro-esophageal reflux disease without esophagitis Plan: Avoid the foods that causes that usually spicy foods, tomato products, juices, coffee, soda and foods that your sensitive to. After eating do not lie down, allow 3-4 hours before in lie down. And keep the head of bed above 30 degrees to avoid the acid from going up. (3) COPD (chronic obstructive pulmonary disease): Code(s): J44.9 - Chronic obstructive pulmonary disease, unspecified Plan: Stable patient is not on any inhalers. states mislabeled and has not been on any inhalers (4) Obesity (BMI 30.0-34.9): Code(s): E66.9 - Obesity, unspecified Plan: Patient is reminded about diet and exercise (5) Eczema: Comment: posterior neck Code(s): L30.9 - Dermatitis, unspecified Orders: Orders Complete Blood Count Auto Diff 5 Months E78.00 - Pure hypercholesterolemia, unspecified Vitamin B12 and Folate 5 Months E78.00 - Pure hypercholesterolemia, unspecified Comprehensive Met. Panel 5 Months E78.00 - Pure hypercholesterolemia, unspecified Free T4 (Free Thyroxine) 5 Months E78.00 - Pure hypercholesterolemia, unspecified Thyroid Stimulating Hormone 5 Months E78.00 - Pure hypercholesterolemia, unspecified Vitamin D 25-OH Total 5 Months E78.00 - Pure hypercholesterolemia, unspecified Lipid Panel 5 Months E78.00 - Pure hypercholesterolemia, unspecified Medications: Refilled clobetasol 0.05% 1 appl topical BID 2 weeks 59 mL 0RF L98.9 - Disorder of the skin and subcutaneous tissue, unspecified Coding Level of Care Code Est Pt Level 4 (25891) Diagnoses Hypercholesterolemia E78.00 GERD (gastroesophageal reflux disease) K21.9 COPD (chronic obstructive pulmonary disease) J44.9 Obesity (BMI 30.0-34.9) E66.9 Eczema L30.9 Additional Codes MARINA-7 Assessment Billing - MARINA-7 Assessment Tool: MARINA-7 Assessment 87463 ([id number])
[2023-08-07 13:21] VITALS: BP 124/82; PULSE 80; O2SAT 96
== END 2023-08-07 14:10 | disposition home or self-care (01) ==
PROVIDERS: PCP Internal Medicine; Visit Provider Internal Medicine
DX: E78.00 Pure hypercholesterolemia, unspecified (principal); J44.9 Chronic obstructive pulmonary disease, unspecified; E66.9 Obesity, unspecified; K21.9 Gastro-esophageal reflux disease without esophagitis; L30.9 Dermatitis, unspecified
CPT/HCPCS: 99214

== ENCOUNTER 2024-02-11 09:45 | Outpatient (REF) | payer MEDICARE, OTHER, SELFPAY ==
[2024-02-11 10:02] LABS: MANUAL DIFF FLAG NO
[2024-02-11 10:27] LABS: Basophils Percent Auto 0.5 % (0-2); Eosinophils Percent Auto 1.1 % (0-4); Estimated Average Glucose 103 mg/dL; Hematocrit 42.8 % (37.0-47.0); Hemoglobin 14.2 g/dl (12.0-16.0); Hemoglobin A1C 123.7192 umol/L; Hemoglobin A1c % 5.2 % (<6.0); Imm Gran Abs Auto 0.01 X10*3/uL (0.00-0.03); Imm Gran Pct Auto 0.3 % (0.0-0.4); Lymphocytes Absolute Auto 1.3 X10*3/uL (1.2-4.9); Lymphocytes Percent Auto 35.4 % (20-40); Mean Corpuscular HGB Conc 33.2 g/dl (31.0-35.0); Mean Corpuscular Volume 99.5 fL (80.0-98.0); Mean Platelet Volume 11.4 fL (9.4-12.3); Monocytes Absolute Auto 0.4 X10*3/uL (0.1-1.2); Monocytes Percent Auto 10.5 % (2-11); Neutrophils Absolute Auto 1.9 x10*3/uL (2.0-8.3); Neutrophils Percent Auto 52.2 % (45-73); Platelet Count 218 X10*3/uL (160-400); Red Cell Distribution Width 11.9 % (11.0-16.0); Total Hemoglobin (HGBA1C) 3660.5704 umol/L; White Blood Count 3.7 X10*3/uL (4.8-10.8)
[2024-02-11 10:38] LABS: Appearance Urine Clear; Color Urine Yellow; Glucose Urine UA Negative (Negative); Leukocyte Esterase Urine Small (1+) (Negative); Nitrite Urine Negative (Negative); Specific Gravity - Urine 1.015 (1.005-1.025); UMIC TRIGGER UACC YES; Urine Blood Negative (Negative); Urine Ketones Negative (Negative); Urine Protein Negative (Neg-Trace)
[2024-02-11 10:40] LABS: Bacteria Urine None Seen (None Seen); Hyaline Casts Urine 0-2 /LPF (0-2); RBC Urine 0-2 /HPF (0-2); Squamous Epithelial Cell Urine 0-2 /HPF (0-2); UACC Culture Trigger YES
[2024-02-11 11:01] LABS: Alanine Aminotransferase 19 U/L (0-31); Albumin Level 4.1 g/dL (3.5-5.0); Alkaline Phosphatase 75 U/L (39-117); Anion Gap 10 (12-20); Aspartate Amino Transferase 20 U/L (5-31); Bilirubin Total 0.7 mg/dL (0.0-1.0); Blood Urea Nitrogen 12 mg/dL (9-16); Calcium 9.2 mg/dL (8.4-10.2); Carbon Dioxide 28 mmol/L (22-29); Chloride 109 mmol/L (96-108); Cholesterol 133 mg/dL (<200); Estimated Glomerular Filt Rate > 60; Glucose Fasting 104 mg/dL (60-99); Glucose Random 104 mg/dL (60-115); HDL Cholesterol 50 mg/dL (>40); LDL Cholesterol Calculated 67 mg/dL (<100); Potassium 4.5 mmol/L (3.3-5.1); Sodium 142 mmol/L (135-145); Total Protein 7.3 g/dL (6.5-8.0); Triglycerides 82 mg/dL (<150)
[2024-02-11 11:07] LABS: TSH reflex Free T4 2.04 uIU/mL (0.32-4.0); Thyroid Stimulating Hormone 2.04 uIU/mL (0.32-4.0)
[2024-02-11 11:14] LABS: Free T4 (Free Thyroxine) 1.08 ng/dL (0.71-1.85); Vitamin D 25-OH Total 51.9 ng/mL (>30)
[2024-02-11 11:17] LABS: Folate 17.8 ng/mL (> or = 4.0); Vitamin B12 881 pg/mL (200-900)
== END 2024-02-11 09:46 | disposition home or self-care (01) ==
LOC: HO.LAB 09:45
PROVIDERS: Nurse Practitioner Family; PCP Internal Medicine; Visit Provider Internal Medicine
DX: R73.01 Impaired fasting glucose (principal); E78.00 Pure hypercholesterolemia, unspecified; R30.0 Dysuria
CPT/HCPCS: 36415; 80053; 80061; 81001; 82306; 82607; 82746; 83036; 84439; 84443; 85025; 87086

== ENCOUNTER 2024-02-13 08:11 | Outpatient (AMB) | payer MEDICARE, OTHER, SELFPAY ==
--- NOTE | 2024-02-13 08:14 | MHC.PC.OV ---
Vital Signs 02/13/24 08:15 Height 5 ft 4 in Weight 177 lb BMI 30.4 BP 134/68 Blood Pressure Location Lt brachial Position Sitting Pulse 67 Pulse Source Pulse Oximeter Pulse Oximetry (%) 96 Oxygen Delivery Method Room Air Intake Visit Reasons: 6 months F/U Allergies loratadine [Claritin] Allergy (Mild, Verified 02/13/24 08:15) Anxiety guaifenesin [From Mucinex] Adverse Reaction (Verified 02/13/24 08:15) Diarrhea Robitussin Maximum Strength Allergy (Mild, Uncoded 02/13/24 08:15) Anxiety Tobacco use date assessed: 08/07/23 Fall risk assessment: No Falls in past year Last assessed Fall Risk: 02/13/24 Dental Screening Dental Screen Date: 08/07/23 HPI 6 months F/U HPI Details 78-year-old obese female with a history of hypercholesterolemia GERD COPD coming in for follow-up. Patient was last seen in July 2023. 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 Pulmonary nodules Diverticular disease Pancreatic mass COPD (chronic obstructive pulmonary disease) Allergic rhinitis GERD (gastroesophageal reflux disease) Hypercholesterolemia Surgical History H/O colonoscopy History of arthroplasty of right knee History of left knee replacement Lipoma Social History Housing: House Alcohol intake: never Patient Tobacco Use Status: Never used Tobacco Tobacco use type: Cigarette e-Cigarette/Vaping Use: Never Used Second Hand Smoke Exposure: No service: No Current occupational status: retired Cognitive needs: No Hearing needs: No Vision needs: Yes Questionnaire PHQ-9 Over the last 2 weeks, how often have you been bothered by any of the following problems? 1. Little interest or pleasure in doing things: not at all 2. Feeling down, depressed, or hopeless: not at all 3. Trouble falling or staying asleep, or sleeping too much: several days 4. Feeling tired or having little energy: not at all 5. Poor appetite or overeating: not at all 6. Feeling bad about yourself - or that you are a failure or have let yourself or your family down: not at all 7. Trouble concentrating on things, such as reading the newspaper or watching television: not at all 8. Moving or speaking so slowly that other people could have noticed. Or the opposite - being so fidgety or restless that you have been moving around a lot more than usual: not at all 9. Thoughts that you would be better off or of hurting yourself in some way: not at all Total score: 1 Depression Screening Interpretation: Positive Depression Screening Follow-up: Declines treatment Depression Screening Done: Yes 48040 - PHQ-9 Billing: Yes Source: Developed by Drs. Dexter Ruiz, Riccardo Gay and colleagues, with an educational timi from [employer]. Thrive Questionnaire Date Thrive assessed: 02/13/24 I am a: Patient What is your living situation today?: I have a steady place to live Within the past 12 months, did the food you bought not last and you didn't have the money to get more?: Never true Within the past 12 months, did you worry whether your food would run out before you got money to buy more?: Never true Do you have trouble paying for medicines?: No Do you have trouble getting transportation to medical appointments?: No Do you have trouble paying your heating and electricity bill?: No Do you have trouble taking care of your child, family member or friend?: No Do you have trouble with day-to-day activities such as bathing, preparing meals, shopping, managing finances, etc.?: No Are you currently unemployed and looking for a job?: No Are you interested in more education?: No Currently or been in a relationship where the following occur: No concerns reported THRIVE Score: 0 AUDIT C Alcohol Use Questionnaire (AUDIT-C) 2. How many drinks containing alcohol do you have on a typical day when you are drinking?: 1 or 2 3. How often do you have six or more drinks on one occasion?: Never Total Score: 0 MARINA-7 AMB Questionnaire MARINA-7 Date MARINA - 7 assessed: 08/07/23 Source: Developed by Drs. Dexter Ruiz, Riccardo Gay and colleagues, with an educational timi from [employer]. Physical exam (Primary Care) Vital Signs: Last Vital Signs Pulse 67 02/13/24 08:15 BP 134/68 02/13/24 08:15 Pulse Ox 96 02/13/24 08:15 Oxygen Delivery Method Room Air 02/13/24 08:15 BMI result Body Mass Index 30.4 Tobacco/Smoking Status: Tobacco use Status Tobacco use date assessed 08/07/23 02/13/24 08:18 Patient Tobacco Use Status Never used Tobacco 02/13/24 08:18 Tobacco use type Cigarette 02/13/24 08:18 e-Cigarette/Vaping Use Never Used 02/13/24 08:18 PHQ-9: PHQ-9 Score PHQ-9: Total score 1 02/13/24 08:20 Depression Screening Interpretation: Positive Depression Screening Follow-up: Declines treatment Thrive Assessment: Date of Thrive Assessment Date Thrive assessed 02/13/24 02/13/24 08:18 Currently or been in a relationship where the following occur: No concerns reported Const General: alert; No acute distress Eyes Conjunctivae: conjunctivae normal Resp Auscultation: clear to auscultation bilaterally Cardio Rate: regular rate Rhythm: regular rhythm GI Inspection: Yes normal to inspection Extrem General: Yes normal to inspection and No edema Coding Level of Care Code Est Pt Level 4 (10542) Diagnoses Obesity (BMI 30.0-34.9) E66.9 Gastroesophageal reflux disease without esophagitis K21.9 Esophagitis presence: without esophagitis Hypercholesterolemia E78.00 Pulmonary emphysema, unspecified emphysema type J43.9 COPD type: emphysema Emphysema type: unspecified Osteopenia, unspecified location M85.80 Osteopenia location: unspecified Additional Codes PHQ-9 - 40553 - PHQ-9 Billing: Yes ([id number]) Assessment & Plan Assessment & Plan (1) Obesity (BMI 30.0-34.9): Code(s): E66.9 - Obesity, unspecified Category: Medical Plan: Diet and exercise (2) GERD (gastroesophageal reflux disease): Code(s): K21.9 - Gastro-esophageal reflux disease without esophagitis Category: Medical Qualifiers: Esophagitis presence: without esophagitis Qualified Code(s): K21.9 - Gastro-esophageal reflux disease without esophagitis Plan: Avoid the foods that causes that usually spicy foods, tomato products, juices, coffee, soda and foods that your sensitive to. After eating do not lie down, allow 3-4 hours before in lie down. And keep the head of bed above 30 degrees to avoid the acid from going up. (3) Hypercholesterolemia: Code(s): E78.00 - Pure hypercholesterolemia, unspecified Category: Medical Plan: Avoid the foods that causes that usually spicy foods, tomato products, juices, coffee, soda and foods that your sensitive to. After eating do not lie down, allow 3-4 hours before in lie down. And keep the head of bed above 30 degrees to avoid the acid from going up. (4) COPD (chronic obstructive pulmonary disease): Code(s): J44.9 - Chronic obstructive pulmonary disease, unspecified Category: Medical Qualifiers: COPD type: emphysema Emphysema type: unspecified Qualified Code(s): J43.9 - Emphysema, unspecified Plan: Stable (5) Osteopenia: Comment: Last bone density was September 2017, December 2021 Code(s): M85.80 - Other specified disorders of bone density and structure, unspecified site Category: Medical Qualifiers: Osteopenia location: unspecified Qualified Code(s): M85.80 - Other specified disorders of bone density and structure, unspecified site Plan: Discussed about follow-up bone density. Discussed about calcium and vitamin-D. Orders: Orders XR DEXA axial skeleton Today M81.0 - Age-related osteoporosis without current pathological fracture, M85.80 - Other specified disorders of bone density and structure, unspecified site Medications: Discontinued nitrofurantoin monohyd/m-cryst 100 mg (Macrobid) must administer with a meal/food Discontinued Reason: Doctor's Order 100 mg PO Q12H 7 days 14 caps 0RF
[2024-02-13 08:15] VITALS: BP 134/68; PULSE 67; O2SAT 96; BMI 30.4
== END 2024-02-13 08:54 | disposition home or self-care (01) ==
PROVIDERS: PCP Internal Medicine; Visit Provider Internal Medicine
DX: J43.9 Emphysema, unspecified (principal); E66.9 Obesity, unspecified; Z68.30 Body mass index [BMI] 30.0-30.9, adult; K21.9 Gastro-esophageal reflux disease without esophagitis; E78.00 Pure hypercholesterolemia, unspecified; M85.80 Other specified disorders of bone density and structure, unspecified site

== ENCOUNTER → 2024-02-13 08:11 | Outpatient (BNVA) | payer MEDICARE, OTHER, SELFPAY | PROVIDERS: PCP Internal Medicine; Visit Provider Internal Medicine | DX: E66.9 Obesity, unspecified (principal); K21.9 Gastro-esophageal reflux disease without esophagitis; E78.00 Pure hypercholesterolemia, unspecified; J43.9 Emphysema, unspecified; M85.80 Other specified disorders of bone density and structure, unspecified site | CPT/HCPCS: 96127; 99212 ==

== ENCOUNTER 2024-03-31 14:17 | Outpatient (AMB) | payer MEDICARE, OTHER, SELFPAY ==
[2024-03-31 14:25] VITALS: BP 140/80; PULSE 83; BMI 29.9
--- NOTE | 2024-03-31 14:25 | MHC.OFFVIS ---
Vital Signs 03/31/24 14:25 Height 5 ft 4 in Weight 174 lb 2.643 oz BMI 29.9 BP 140/80 H Blood Pressure Location Lt brachial Position Sitting Pulse 83 Pulse Source Monitor Intake Visit Reasons: 1Y Follow up Allergies loratadine [Claritin] Allergy (Mild, Verified 02/13/24 08:15) Anxiety guaifenesin [From Mucinex] Adverse Reaction (Verified 02/13/24 08:15) Diarrhea Robitussin Maximum Strength Allergy (Mild, Uncoded 02/13/24 08:15) Anxiety Medication List - Last Reconciled 03/31/24 by Tobin Mayberry MD ascorbic acid (vitamin C) 1,000 mg PO DAILY Bifidobacterium infantis (Align) 4 mg PO BEDTIME 90 days cholecalciferol (vitamin D3) 25 mcg PO DAILY clobetasol 0.05% 1 appl topical BID 2 weeks flaxseed oil 1,000 mg PO DAILY rosuvastatin 20 mg PO DAILY HPI Comments Details: Amada comes for follow-up. With recent LDL was well optimized at 67 mg/dL. She is taking Crestor. She remains active and denies any exertional symptoms of chest pain or shortness of breath. She continues to remain concerned about family history of coronary artery disease. Denies worsening shortness of breath. No orthopnea, PND, leg edema. No prolonged palpitation irregular heartbeat. 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 Pulmonary nodules Diverticular disease Pancreatic mass COPD (chronic obstructive pulmonary disease) Allergic rhinitis GERD (gastroesophageal reflux disease) Hypercholesterolemia Surgical History H/O colonoscopy History of arthroplasty of right knee History of left knee replacement Lipoma Social History Housing: House Alcohol intake: never Patient Tobacco Use Status: Never used Tobacco Tobacco use type: Cigarette e-Cigarette/Vaping Use: Never Used Second Hand Smoke Exposure: No service: No Current occupational status: retired Cognitive needs: No Hearing needs: No Vision needs: Yes Review of Systems Const Denies weakness ENT Denies dizziness Card Denies chest pain, Denies chest pain with activity, Denies syncope, Denies rapid heart rate, Denies pedal edema, Denies edema, Denies leg edema, Denies lightheadedness, Denies palpitations, Denies dyspnea, Denies dyspnea on exertion and Denies orthopnea Resp Denies cough, Denies dyspnea and Denies dyspnea on exertion GI Denies hematochezia and Denies change in stool character Musc Denies abnormal gait, Denies muscle cramps, Denies muscle weakness, Denies numbness, Denies radiating pain into limb and Denies tingling Neuro Denies abnormal gait, Denies dizziness, Denies syncope, Denies numbness, Denies tingling and Denies weakness Endo Denies palpitations Physical Exam Vital Signs: Last Vital Signs Pulse 83 03/31/24 14:25 BP 140/80 H 03/31/24 14:25 BMI result Body Mass Index 29.9 Const General: cooperative, comfortable, no acute distress, alert and awake Nutritional Appearance: overweight Orientation/consciousness: patient oriented x3 Limitations: no limitations Neck Neck: Yes trachea midline, Yes supple and Yes no JVD Resp Effort & Inspection: normal respiratory effort Auscultation: clear to auscultation bilaterally Cardio Jugular venous distension: no JVD Palpation: normal PMI Rate: regular rate Rhythm: regular rhythm Heart sounds: S1 normal heart sound present, S2 normal heart sound present, no click, no gallops, no murmurs and no rubs GI Auscultation: normal bowel sounds Skin General skin exam: no rashes or lesions noted Neuro General: patient oriented x3 and no focal motor deficits Extrem General: Yes no clubbing, cyanosis or edema, Yes venous stasis dermatitis and Yes other (Bilateral varicosities) Psych Appearance: grossly normal Office Procedures EKG Details: EKG shows normal sinus rhythm with normal EKG [id number], Complete Assessment & Plan Assessment & Plan (1) Hypercholesterolemia: Code(s): E78.00 - Pure hypercholesterolemia, unspecified Category: Medical Plan: Familial hypercholesterolemia with family history for premature coronary artery disease. Currently extremely well optimized LDL on current dose of Crestor which is high-intensity statin therapy. She is having no obvious cardiac symptoms. Discussed the rationale of therapy and further workup. At this point time no provocative testing is indicated as this will not change her management. Will review her prior coronary calcium score which is currently not uploaded in his chart for unclear reasons. Encouraged to continue maintain activity level as tolerated. Will follow up in 1 year's time, sooner p.r.n.. Thank you for allowing me to partake in his care Coding Level of Care Code Est Pt Level 3 (73358) Complex EM visit Add On G2211 Diagnoses Hypercholesterolemia E78.00 CPT Codes EKG - CPT: 93051-[id number], Complete ([id number])
== END 2024-03-31 14:48 | disposition home or self-care (01) ==
PROVIDERS: PCP Internal Medicine; Visit Provider Internal Medicine Cardiovascular Disease
DX: E78.00 Pure hypercholesterolemia, unspecified (principal)
CPT/HCPCS: 93010; 99213; G2211

== ENCOUNTER → 2024-03-31 14:17 | Outpatient (BNVA) | payer MEDICARE, OTHER, SELFPAY | PROVIDERS: PCP Internal Medicine; Visit Provider Internal Medicine Cardiovascular Disease | DX: E78.00 Pure hypercholesterolemia, unspecified (principal) | CPT/HCPCS: 93005; 99212 ==

== ENCOUNTER 2024-04-03 10:34 | Outpatient (REF) | payer MEDICARE, OTHER, SELFPAY ==
--- NOTE | ~2024-04-03 | MM_ITS ---
EXAMINATION: Dual-Energy X-ray Absorptiometry - Bone Density Study HISTORY: Estrogen deficiency TECHNIQUE: Offees Dual energy absorptiometry (DEXA) of the lumbar spine, total left hip, and femoral neck was performed. COMPARISON: Comparison is made with the prior examination dated 01/10/2022. FINDINGS: The bone mineral density of the lumbar spine is 1.005 with a T-score of -1.4, and a Z-score of -0.1. This represents a BMD change of -2.0% compared to the prior exam. This is not statistically significant. The bone mineral density of the left total hip is 0.865 with a T-score of -1.1, and a Z-score of 0.3. This represents BMD change of -3.1% compared to the prior exam. This is not statistically significant. The bone mineral density of the left femoral neck is 0.768 with a T-score of -1.9, and a Z-score of -0.3. This represents BMD change of -2.0% compared to the prior exam. FRACTURE RISK: The FRAX index suggests a ten year probability of major osteoporotic fracture of 13.4%, and of hip fracture 3.4%. MM/XR DEXA axial skeleton IMPRESSION: Based on bone mineral density, and according to World Health Organization (WHO) criteria, the diagnosis is consistent with osteopenia. All bone density values are in grams per centimeter squared. At this facility, the least significant change in BMD with 95% confidence is 0.022 at the lumbar spine, 0.027 at the hip, and 0.023 at the distal 1/3 radius. Electronically signed by: Dexter Hamlin MD 04/07/2024 09:41 AM EST
== END 2024-04-03 10:35 | disposition home or self-care (01) ==
LOC: HO.MAMMO 10:34
PROVIDERS: PCP Internal Medicine; Visit Provider Internal Medicine
DX: M81.0 Age-related osteoporosis without current pathological fracture (principal); M85.80 Other specified disorders of bone density and structure, unspecified site
CPT/HCPCS: 77080

== ENCOUNTER → 2024-04-03 11:00 | Outpatient (BNV) | payer MEDICARE, OTHER, SELFPAY | PROVIDERS: PCP Internal Medicine; Visit Provider Radiology Diagnostic Radiology | DX: E28.39 Other primary ovarian failure (principal) | CPT/HCPCS: 77085 ==

== ENCOUNTER → 2024-06-05 08:17 | Outpatient (BNVA) | payer MEDICARE, OTHER, SELFPAY | PROVIDERS: PCP Internal Medicine; Visit Provider Internal Medicine ==

== ENCOUNTER 2024-06-05 08:22 | Outpatient (AMB) | payer MEDICARE, OTHER, SELFPAY ==
--- NOTE | 2024-06-05 08:35 | AM.OFFVISMDC ---
Intake Vital Signs 06/05/24 08:36 Height 5 ft 4 in Weight 178 lb BMI 30.6 BP 132/80 Blood Pressure Location Lt brachial Position Sitting Pulse 68 Pulse Source Pulse Oximeter Pulse Oximetry (%) 98 Oxygen Delivery Method Room Air Intake Visit Reasons: awv Allergies loratadine [Claritin] Allergy (Mild, Verified 06/05/24 08:36) Anxiety guaifenesin [From Mucinex] Adverse Reaction (Verified 06/05/24 08:36) Diarrhea Robitussin Maximum Strength Allergy (Mild, Uncoded 06/05/24 08:36) Anxiety Medication List - Last Reconciled 06/05/24 by Checo Romero MD ascorbic acid (vitamin C) 1,000 mg PO DAILY Bifidobacterium infantis (Align (B.infantis)) 4 mg PO BEDTIME 90 days cholecalciferol (vitamin D3) 25 mcg PO DAILY clobetasol 0.05% 1 appl topical BID 2 weeks flaxseed oil 1,000 mg PO DAILY multivitamin 1 tab PO DAILY rosuvastatin 20 mg PO DAILY [facility] Medical History Age-related osteoporosis without current pathological fracture Fibroids 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 Pulmonary nodules Diverticular disease Pancreatic mass COPD (chronic obstructive pulmonary disease) Allergic rhinitis GERD (gastroesophageal reflux disease) Hypercholesterolemia Surgical History H/O colonoscopy History of arthroplasty of right knee History of left knee replacement Lipoma Social History Housing: House Alcohol intake: never Patient Tobacco Use Status: Never used Tobacco Tobacco use type: Cigarette e-Cigarette/Vaping Use: Never Used Second Hand Smoke Exposure: No service: No Current occupational status: retired Cognitive needs: No Hearing needs: No Vision needs: Yes Questionnaire Medicare Wellness Checkup [age] What gender do you identify with?: female During the past 4 weeks, how much have you been bothered by emotional problems such as feeling anxious, depressed, irritable, sad or downhearted, and blue?: not at all During the past 4 weeks, has your physical & emotional health limited your social activities with family, friends, neighbors, or groups?: not at all During the past 4 weeks, how much bodily pain have you generally had?: very mild pain During the past 4 weeks, was someone available to help you if you needed & wanted help?: yes, as much as I wanted During the past 4 weeks, what was the hardest physical activity you could do for at least 2 minutes?: heavy Can you get to places out of walking distance without help? (For eg., can you travel alone on buses, taxis or drive your car?): Yes Can you go shopping for groceries or clothes without someone's help?: Yes Can you prepare your own meals?: Yes Can you do your housework without help?: Yes Because of any health problems, do you need the help of another person with your personal care needs such as eating, bathing, dressing or getting around the house?: No Can you handle your own money without help?: Yes During the past 4 weeks, how would you rate your health in general?: very good During the past 4 weeks how have things been going for you?: very well; could hardly better Are you having difficulties driving your car?: no Do you always fasten your seat belt when you are in a car?: yes, usually During past 4 weeks, have you been bothered by the following: never: Falling or dizzy when standing up, Sexual problems?, Trouble eating well?, Teeth or denture problems? and Problems using the telephone? and seldom: Tiredness or fatigue? Have you fallen 2 or more times in the past year?: No Are you afraid of falling?: No Are you a smoker?: no During the past 4 weeks, how many drinks of wine, beer, or other alcoholic beverages did you have?: no alcohol at all Do you exercise for about 20 minutes 3 or more times a week?: yes, most of the time Have you been given information to help with the following?: yes: Hazards in your house that might hurt you? and yes: Keeping track of your medications? How often do you have trouble taking medicines the way you have been told to take them?: I always take medicine as prescribed How confident are you that you can control & manage most of your health problems?: very confident What is your race?: White PHQ-9 Over the last 2 weeks, how often have you been bothered by any of the following problems? 1. Little interest or pleasure in doing things: not at all 2. Feeling down, depressed, or hopeless: not at all 3. Trouble falling or staying asleep, or sleeping too much: nearly every day 4. Feeling tired or having little energy: not at all 5. Poor appetite or overeating: not at all 6. Feeling bad about yourself - or that you are a failure or have let yourself or your family down: not at all 7. Trouble concentrating on things, such as reading the newspaper or watching television: not at all 8. Moving or speaking so slowly that other people could have noticed. Or the opposite - being so fidgety or restless that you have been moving around a lot more than usual: not at all 9. Thoughts that you would be better off or of hurting yourself in some way: not at all Total score: 3 Depression Screening Interpretation: Negative Depression Screening Done: Yes Source: Developed by Drs. Dexter Ruiz, Yolande Hobbs, Riccardo Bennett and colleagues, with an educational timi from [employer]. Review of Systems Const Denies poor appetite and Denies weakness Eyes Denies no additional complaints ENT Reports Normal hearing present, Denies dizziness, Denies nasal congestion, Denies tinnitus and Denies sore throat Card Denies chest pain, Denies syncope, Denies rapid heart rate and Denies dyspnea Resp Denies cough and Denies dyspnea GI Denies change in stool character, Reports constipation, Denies diarrhea, Denies nausea and Denies vomiting Denies urinary frequency, Denies difficulty voiding and Denies dysuria Neuro Reports Normal hearing present, Denies confusion, Denies dizziness, Denies syncope and Denies weakness Psych Denies confusion Physical Exam Vital Signs: Last Vital Signs Pulse 68 06/05/24 08:36 BP 132/80 06/05/24 08:36 Pulse Ox 98 06/05/24 08:36 Oxygen Delivery Method Room Air 06/05/24 08:36 BMI result Body Mass Index 30.6 Const General: No confusion Orientation/consciousness: No confusion HEENT Head: Yes normocephalic Ears: external ears normal and TM's normal bilaterally Face and sinus: Yes normal facial exam Mouth: moist mucous membranes Throat: Yes tonsils normal Eyes Conjunctivae: conjunctivae normal Pupils: Equal, round and reactive pupils present and Pupil accommodation reflex normal Direct Ophthalmoscopy: normal light reflex Neck Neck: No lymphadenopathy Thyroid: Thyroid normal Chest Chest palpation & inspection: normal inspection of the chest Resp Effort & Inspection: normal respiratory effort and no audible wheezes Auscultation: clear to auscultation bilaterally, no crackles, no wheezes and lung sounds not diminished Cardio Rate: regular rate Rhythm: regular rhythm Peripheral pulses: radial pulses present and dorsalis pedis present GI Palpation (GI): no masses Auscultation: normal bowel sounds and normoactive bowel sounds Rectal Exam - Female: deferred Skin General skin exam: no rashes or lesions noted Rashes: no rashes Neuro General: No confusion Cranial nerves: Yes Equal, round and reactive pupils present and Yes Normal hearing present Cognition (Neuro): normal cognition Gait exam (Neuro): Normal gait present Motor exam (neuro): 5/5 motor strength present throughout Deep tendon reflexes (DTR's): Right brachioradialis reflex intensity grade: 2+, Left brachioradialis reflex intensity grade: 2+, Right patellar reflex intensity grade: 2+ and Left patellar reflex intensity grade: 2+ Extrem General: No edema Assessment & Plan Assessment & Plan (1) Medicare annual wellness visit, subsequent: Code(s): Z00.00 - Encounter for general adult medical examination without abnormal findings Plan: Patient is advised to eat healthy, keep well hydrated, keep active and have adequate sleep. (2) COPD (chronic obstructive pulmonary disease): Code(s): J44.9 - Chronic obstructive pulmonary disease, unspecified Qualifiers: COPD type: emphysema Emphysema type: unspecified Qualified Code(s): J43.9 - Emphysema, unspecified Plan: Stable and not on any inhaler (3) GERD (gastroesophageal reflux disease): Code(s): K21.9 - Gastro-esophageal reflux disease without esophagitis Qualifiers: Esophagitis presence: without esophagitis Qualified Code(s): K21.9 - Gastro-esophageal reflux disease without esophagitis Plan: Avoid the foods that causes that usually spicy foods, tomato products, juices, coffee, soda and foods that your sensitive to. After eating do not lie down, allow 3-4 hours before in lie down. And keep the head of bed above 30 degrees to avoid the acid from going up. (4) Hypercholesterolemia: Code(s): E78.00 - Pure hypercholesterolemia, unspecified Plan: Avoid fried foods, chicken skin, eggs, butter margarine, pastries and meat. Be it pork or beef they have a lot of cholesterol LDL goal of less than 100 and triglyceride of less than 150. Patient on rosuvastatin 20 mg once a day (5) Obesity (BMI 30.0-34.9): Code(s): E66.9 - Obesity, unspecified Plan: diet and exercise (6) Osteopenia: Comment: Last bone density was September 2017, December 2021, 03/2024 Code(s): M85.80 - Other specified disorders of bone density and structure, unspecified site Qualifiers: Osteopenia location: unspecified Qualified Code(s): M85.80 - Other specified disorders of bone density and structure, unspecified site Plan: keep active discussed about calcium and vitamin-D (7) Impaired fasting blood sugar: Code(s): R73.01 - Impaired fasting glucose Plan History of Present Illness The patient is a 78-year-old female presenting for her annual wellness examination. She has a medical history of hypercholesterolemia, effectively managed with rosuvastatin 20 mg daily. Recent laboratory results indicated her LDL level is well-controlled. The patient's past bone density tests confirm osteopenia with stable measurements since the last evaluation on April 07, 2024. The patient manages her GERD with dietary changes and occasional use of Tums, reporting that symptoms seldom occur weekly. Although she has COPD, she is not currently using inhalers. Her previous colonoscopy showed a benign tubular adenoma, which underscores the need for potential future surveillance. She is physically active and attends structured exercises regularly, incorporating activities designed to maintain balance, bone health, and aerobic fitness. Health Maintenance - Mammogram up to date as of September 2023 - Bone density screening showed stable osteopenia as of March 2024 - Last colonoscopy in September 2021 with benign tubular adenoma findings; follow-up discussed - Health discussions on diet, exercise, and maintaining an active lifestyle for cholesterol and weight management - Guidance provided on vitamin D and calcium supplementation reflected in normal lab results Social History - Active lifestyle with regular exercise at a senior center five times weekly, including yoga and aerobic activities - No alcohol or tobacco use - Concerns regarding diet and interest in moving toward a plant-based diet Review of Systems - Cardiovascular: Denies chest pain or discomfort, denies episodes of syncope, and reports stable blood pressure generally lower at home. - Respiratory: Denies shortness of breath except for occasional increased awareness of breathing during aerobic activities, denies cough. - Gastrointestinal: Reports episodic heartburn, usually managed with diet changes and Tums, denies nausea, vomiting, or swallowing difficulties. - Genitourinary: Reports nocturia, typically wakes up 1-2 times per night, denies dysuria. - Neurological: Denies dizziness, seizure activity, or loss of consciousness. - Other: Reports adequate hearing; denies any significant vision changes or major difficulty in activities of daily living. Physical Exam General: Cooperative, healthy appearing, comfortable, no acute distress and well developed Orientation: Patient oriented x3 Limitations: No limitations Head: Normal to inspection Ears: Hearing slightly diminished, but not enough to warrant testing Nose: Normal external nose present Face and sinus: Normal facial exam Eyes: Appearance normal, both eyes and all related structures Neck: Normal visual inspection and Yes full ROM Respiratory: Normal respiratory effort and able to speak in complete sentences. Clear to auscultation bilaterally Cardiovascular: Regular rate and rhythm. Normal S1 and S2 GI: Normal to inspection. Soft to palpation and nontender Skin: No rashes or lesions noted Neuro: Patient oriented x3 Extremities: Normal to inspection Results - Labs: LDL cholesterol 67, fasting blood sugar mildly elevated but HbA1c within normal limits, all other electrolytes and function markers within normal ranges. Plan Focus on maintaining management of chronic conditions is vital. The patient is advised to continue her present regimen for hypercholesterolemia with rosuvastatin. Dietary adjustments for GERD will be sustained, supplemented by occasional Tums use. Physical activities remain a cornerstone for managing obesity and vascular health. Preventative health measures, including tetanus boosters and vaccination, will be kept current, especially in consideration of upcoming travels. A nutrition consult is advised to assist with dietary transitions. A follow-up on colonoscopy timings and evaluations is noted for consideration. Patient was informed and verbally consented to the use of an ambient scribe for clinic note documentation during this visit. Discussion Notes We discussed the patient's overall management for her chronic conditions, including hypercholesterolemia, osteoporosis, and GERD, emphasizing stable conditions and continued lifestyle management interventions, including exercise and dietary changes. I highlighted the patient's successful LDL management with rosuvastatin and continued bone density surveillance due to known osteopenia. The risks and benefits of GERD treatment approaches were discussed, underlining the current use of lifestyle modification and occasional Tums without the need for routine pharmacotherapy. The patient inquired about potential measles vaccination, and I explained the current recommendations and considerations based on risk factors locally. Before her travel, we agreed it would be optimal to receive a tetanus booster. We reviewed the need for continued activity and anticipated touchpoints for colonoscopy. We also discussed a consultation with a educational/development assistant to transition to more plant-based eating. Guidance offered regarding nocturnal habits centered around fluid intake adjustments to improve sleep. Patient Instructions - Continue rosuvastatin 20 mg daily to maintain cholesterol levels. - Adjust diet and monitor GERD symptoms; use Tums sparingly as needed. - Engage in regular physical exercise; aim for at least five days per week. - Ensure tetanus booster before upcoming travel in July. - Stay hydrated but limit fluids close to bedtime to reduce nocturia. - Await contact from a educational/development assistant for dietary guidance. - Schedule a follow-up colonoscopy closer to the date advised by Dr. Cantu. - Monitor blood pressure at home only as needed. - Use sunscreen and protection during outdoor activities. Orders: Orders Hemoglobin A1c 6 Months R73.01 - Impaired fasting glucose Comprehensive Met. Panel 6 Months R73.01 - Impaired fasting glucose Lipid Panel 6 Months E78.00 - Pure hypercholesterolemia, unspecified Thyroid Stimulating Hormone 6 Months E78.00 - Pure hypercholesterolemia, unspecified Free T4 (Free Thyroxine) 6 Months E78.00 - Pure hypercholesterolemia, unspecified Vitamin B12 and Folate 6 Months E78.00 - Pure hypercholesterolemia, unspecified Complete Blood Count Auto Diff 6 Months R73.01 - Impaired fasting glucose Ferritin 6 Months E78.00 - Pure hypercholesterolemia, unspecified Vitamin D 25-OH Total 6 Months E78.00 - Pure hypercholesterolemia, unspecified Referrals Nutrition/Dietitian Referral E78.00 - Pure hypercholesterolemia, unspecified, R73.01 - Impaired fasting glucose Quality Reporting (2019) Depression/Bipolar (159/160/161/177) PHQ-9: Total score: 3 Coding Level of Care Code Medicare Subsequent (G0439) Diagnoses Medicare annual wellness visit, subsequent Z00.00 Pulmonary emphysema, unspecified emphysema type J43.9 COPD type: emphysema Emphysema type: unspecified Gastroesophageal reflux disease without esophagitis K21.9 Esophagitis presence: without esophagitis Hypercholesterolemia E78.00 Obesity (BMI 30.0-34.9) E66.9 Osteopenia, unspecified location M85.80 Osteopenia location: unspecified Impaired fasting blood sugar R73.01
[2024-06-05 08:36] VITALS: BP 132/80; PULSE 68; O2SAT 98; BMI 30.6
--- OUTSIDE RECORDS SUMMARY | 2024-06-05 08:40 | XMS_ITS | Patient Health Record ---
Author Organization [facility] Address [address] [place] [id number] Care Team Providers Care Press Assistant Name Role Phone Checo Romero MD Primary Care Provider Shine Mills Jr Unavailable Allergies Allergen (clinical drug ingredient) Drug/Non Drug Allergy documented on EMR Reaction Allergy Type Onset Date Status enviromental (uncoded) Unknown Allergy Active Reason For Referral No Information Medications Medication SIG (Take, Route, Frequency, Duration) Notes Start Date End Date Status MiraLax (colon prep) 17 GM/SCOOP mixed with Gatorade or Crystal Light Orally begin at 5:00 p.m. the day before the procedure for 1 day 08/10/2021 Active Rosuvastatin Calcium 20 MG 1 tablet Oral ly Once a day for 30 day(s) Active Centrum Adults - as directed Orally Active Fish Oil 1200 MG 1 capsule Orally Onc e a day for 30 day(s) Active Vitamin D-3 25 MCG (1000 UT) 1 capsule Orally Once a day for 30 day(s) Active Align - as directed Orally A ctive Vitamin C 1000 MG 1 tablet Orally Once a day Active Multi Vitamin/Minerals 1 1 Orally qd Active Turmeric 1053 MG 1 Orally qd A ctive Immunizations Vaccine Route Administration Date Status Comme nts Flu vaccine no Preserv 3 and > Unknown 01/04/2016 Admin istered Influenza Unknown 01/11/2021 Administered Problems Problem Type SNOMED Code ICD Code Onset Dates Problem Status W/U Status Risk Notes Problem 666167298 Colon cancer screening (Z12.11) Active confirmed Problem 212216752 Colitis (K52.9) Active confirmed Problem 858753051 Long-term curren t use of high risk medication other than anticoagulant (Z79.899) Active confirmed Plan Of Treatment Future Test Test Name Order Date COLONOSCOPY 02/02/2016 COLONOSCOPY 08/10/2021 Insurance Providers Payer Name Payer Address Payer Phone Subscriber Number Group Number Insured Name Patient Relationship to Insured Coverage Start Date Coverage End Date MEDICARE OF [place] [address] [place] [address] [id number] PEPPER BROOKS Self - patient is the insured [facility] [address] [place] [address] [id number] PEPPER BROOKS Self - patient is the insured Medical (General) History Medical History History ICD Code colonoscopy 2017, hyperplast ic polyp, five-year followup due to prior history of adenomas. 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
== END 2024-06-05 09:27 | disposition home or self-care (01) ==
PROVIDERS: PCP Internal Medicine; Visit Provider Internal Medicine
DX: Z00.00 Encounter for general adult medical examination without abnormal findings (principal); J43.9 Emphysema, unspecified; K21.9 Gastro-esophageal reflux disease without esophagitis; E66.9 Obesity, unspecified; Z68.30 Body mass index [BMI] 30.0-30.9, adult; E78.00 Pure hypercholesterolemia, unspecified; M85.80 Other specified disorders of bone density and structure, unspecified site; R73.01 Impaired fasting glucose

== ENCOUNTER 2024-07-21 12:13 | Outpatient (AMB) | payer MEDICARE, OTHER, SELFPAY ==
--- NOTE | 2024-07-21 12:36 | A.OFFVIS_ITS ---
VS Expanded 07/21/24 12:36 07/21/24 12:46 Height 5 ft 4 in 5 ft 4 in Weight 174 lb 9.698 oz 174 lb BMI 30.0 29.9 Intake Visit Reasons: Impaired fasting glucose Allergies loratadine [Claritin] Allergy (Mild, Verified 06/05/24 08:36) Anxiety guaifenesin [From Mucinex] Adverse Reaction (Verified 06/05/24 08:36) Diarrhea Robitussin Maximum Strength Allergy (Mild, Uncoded 06/05/24 08:36) Anxiety Nutrition Presentation Details: Pt presents for MNT for IFG Pt has multiple questions regarding macros [Physical activity Pt reports 3 -4 times a week (yoga/strength) fruits: 1-2 /d veg 1/day fish : 2-3 x/wk dairy 2/d , occ denies etoh/smoking water , ice tea or hibiscus ice, juice BS Monitoring Most Recent Diabetes Results: Cholesterol 133 mg/dL (<200) 02/11/24 HDL Cholesterol 50 mg/dL (>40) 02/11/24 Triglycerides 82 mg/dL (<150) 02/11/24 Creatinine 0.88 mg/dL (0.5-1.4) 02/11/24 Blood Urea Nitrogen 12 mg/dL (9-16) 02/11/24 Sodium 142 mmol/L (135-145) 02/11/24 Potassium 4.5 mmol/L (3.3-5.1) 02/11/24 Chloride 109 mmol/L (96-108) H 02/11/24 Carbon Dioxide 28 mmol/L (22-29) 02/11/24 Calcium 9.2 mg/dL (8.4-10.2) 02/11/24 AST 20 U/L (5-31) 02/11/24 ALT 19 U/L (0-31) 02/11/24 Total Protein 7.3 g/dL (6.5-8.0) 02/11/24 Albumin 4.1 g/dL (3.5-5.0) 02/11/24 ATC-Trhayly-Ek.Jeor Equation Height: 5 ft 4 in Weight: 174 lb Resting Metabolic Rate: 1269.54 Calculated Activity Level: Mild Activity Calories Needed to Maintain Weight: 1745.62 Diagnosis Nutrition problem #1: altered nutrition labs As related to (etiology) #1: diagnosis As evidenced by (sign/symptom) #1: knowledge deficit of diet [facility] Medical History Age-related osteoporosis without current pathological fracture Fibroids 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 Pulmonary nodules Diverticular disease Pancreatic mass COPD (chronic obstructive pulmonary disease) Allergic rhinitis GERD (gastroesophageal reflux disease) Hypercholesterolemia Surgical History H/O colonoscopy History of arthroplasty of right knee History of left knee replacement Lipoma Social History Housing: House Alcohol intake: never Patient Tobacco Use Status: Never used Tobacco Tobacco use type: Cigarette e-Cigarette/Vaping Use: Never Used Second Hand Smoke Exposure: No service: No Current occupational status: retired Cognitive needs: No Hearing needs: No Vision needs: Yes Assessment & Plan Assessment & Plan (1) Impaired fasting blood sugar: Code(s): R73.01 - Impaired fasting glucose Category: Medical Plan: Wt: 79 Kg (07/18 ) Est kcal needs as per MSJ: 1700 (40% carb, 30% protein/fat) Est fluid needs as per 25-30 ml/d: 2400 Est prot per day as per 1 g/kg bw: 80 Recommend fiber intake : 8-10 g per day and gradually increase to 25-28 g per day for women and 35-38 g for men or as tolerated Recommend sodium intake per day : less than 2000 mg Educated patient on: ( R = reviewed V = verbalizes understanding N/R = needs review N/A = not applicable * Food sources of carbohydrate, adequate serving sizes and its role in various health conditions: R * Differences between complex carbohydrates a simple carbohydrates, role of fiber in diet: R * Lean protein sources of foods: R * Differences between types of fats and role in diet (mono on saturated fat fatty acids, saturated fatty acids, trans fats): R V N/R * Food sources of sodium in salt and healthy modifications for heart health in kidney health: R V R/V * Vitamins and minerals: R V N/R * Healthy plate method concept: R V N/R * Physical activity: Benefits a precaution: R * Hypoglycemia protocol (rule of 15): R V N/R * Dietary prevention of Hyperglycemia: R Patient Instructions: Follow healthy plate method Choose fiber rich foods see meal ideas consisting of 45-60 g carb per meal, 0-20 g as snack Coding Level of Care Code Nutr Indiv Intake (52394) Diagnoses Impaired fasting blood sugar R73.01 Time Spent (min) 30
[2024-07-21 12:46] VITALS: BMI 29.9
== END 2024-07-21 13:16 | disposition home or self-care (01) ==
LOC: HO.ENCR 12:13
PROVIDERS: PCP Internal Medicine; Visit Provider Dietitian, Registered
DX: R73.01 Impaired fasting glucose (principal)

== ENCOUNTER → 2024-07-21 12:13 | Outpatient (BNVA) | payer MEDICARE, OTHER, SELFPAY | PROVIDERS: PCP Internal Medicine; Visit Provider Dietitian, Registered | DX: R73.01 Impaired fasting glucose (principal); Z71.3 Dietary counseling and surveillance | CPT/HCPCS: 97802 ==

== ENCOUNTER 2024-09-22 12:10 | Outpatient (AMB) | payer MEDICARE, OTHER, SELFPAY ==
[2024-09-22 12:33] VITALS: BMI 29.6
--- NOTE | 2024-09-22 12:33 | A.OFFVIS_ITS ---
VS Expanded 09/22/24 12:33 Height 5 ft 4 in Weight 172 lb 2.896 oz BMI 29.6 Intake Visit Reasons: Impaired fasting glucose Allergies loratadine (Claritin) Allergy (Mild, Verified 06/05/24 08:36) Anxiety guaifenesin (From Mucinex) Adverse Reaction (Verified 06/05/24 08:36) Diarrhea Robitussin Maximum Strength Allergy (Mild, Uncoded 06/05/24 08:36) Anxiety Nutrition Presentation Details: Pt presents for MNT f/u for IFG and hypercholesterolemia Pt reports working on diet modifications, choosing complex carbs fluids : 36-40 oz /day (water or low sugar beverages) protein:40-60 g prot PFSH Medical History Age-related osteoporosis without current pathological fracture Fibroids 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 Pulmonary nodules Diverticular disease Pancreatic mass COPD (chronic obstructive pulmonary disease) Allergic rhinitis GERD (gastroesophageal reflux disease) Hypercholesterolemia Surgical History H/O colonoscopy History of arthroplasty of right knee History of left knee replacement Lipoma Social History Housing: House Alcohol intake: never Patient Tobacco Use Status: Never used Tobacco Tobacco use type: Cigarette e-Cigarette/Vaping Use: Never Used Second Hand Smoke Exposure: No service: No Current occupational status: retired Cognitive needs: No Hearing needs: No Vision needs: Yes Assessment & Plan Assessment & Plan (1) Impaired fasting blood sugar: Code(s): R73.01 - Impaired fasting glucose Category: Medical Plan: Wt: 79 Kg (07/18 ), 78 kg(09/17) Est kcal needs as per MSJ: 1700 (40% carb, 30% protein/fat) Est fluid needs as per 25-30 ml/d: 2400 Est prot per day as per 1 g/kg bw: 80 Recommend fiber intake : 8-10 g per day and gradually increase to 25-28 g per day for women and 35-38 g for men or as tolerated Recommend sodium intake per day : less than 2000 mg Educated patient on: ( R = reviewed V = verbalizes understanding N/R = needs review N/A = not applicable * Food sources of carbohydrate, adequate serving sizes and its role in various health conditions: R * Differences between complex carbohydrates a simple carbohydrates, role of fiber in diet: R * Lean protein sources of foods: R * Differences between types of fats and role in diet (mono on saturated fat fatty acids, saturated fatty acids, trans fats): R basic * Food sources of sodium in salt and healthy modifications for heart health in kidney health: R V R/V * Vitamins and minerals: R * Healthy plate method concept: R * Physical activity: Benefits a precaution: R * Hypoglycemia protocol (rule of 15): R V N/R * Dietary prevention of Hyperglycemia: R,V Patient Instructions: Have fish twice a week (example tuna fish with olive oil, spinach, lettuce tomato on whole wheat bread and fruit or yogurt as a meal) have apple with peanut butter as a snack Coding Level of Care Code Nutr Indiv Subseq (11396) Diagnoses Impaired fasting blood sugar R73.01 Time Spent (min) 30
--- OUTSIDE RECORDS SUMMARY | 2024-09-22 12:47 | XMS_ITS | Patient Health Record ---
Author Organization [facility] Address [address] [place] [phone] Care Team Providers Care Clinical Social Worker Name Role Phone Checo Romero MD Primary Care Provider Shine Mills Jr Unavailable [phone] Allergies Allergen (clinical drug ingredient) Drug/Non Drug [...] Problem Status W/U Status Risk Notes Problem 354457646 Colon cancer screening (Z12.11) Active confirmed Problem 784268616 Colitis (K52.9) Active confirmed Problem 966888671 Long-term curren t use of high risk medication other than anticoagulant (Z79.899) Active confirmed Plan Of Treatment Future Test Test Name Order Date COLONOSCOPY 02/02/2016 COLONOSCOPY 08/10/2021 Insurance Providers Payer Name Payer Address Payer Phone Subscriber Number Group Number Insured Name Patient Relationship to Insured Coverage Start Date Coverage End Date MEDICARE OF [place] [address] [place] [address] [id number] PEPPER BROOKS Self - patient is the insured [facility] [address] [place] [address] [id number] PEPPER BROOKS Self - patient is the insured Medical (General) History Medical History History ICD Code colonoscopy 2017, hyperplast ic polyp, five-year followup due to prior history of adenomas. 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
== END 2024-09-22 13:19 | disposition home or self-care (01) ==
LOC: HO.ENCR 12:11
PROVIDERS: PCP Internal Medicine; Visit Provider Dietitian, Registered
DX: R73.01 Impaired fasting glucose (principal)

== ENCOUNTER → 2024-09-22 12:10 | Outpatient (BNVA) | payer MEDICARE, OTHER, SELFPAY | PROVIDERS: PCP Internal Medicine; Visit Provider Dietitian, Registered | DX: R73.01 Impaired fasting glucose (principal); E78.00 Pure hypercholesterolemia, unspecified | CPT/HCPCS: 97803 ==

== ENCOUNTER 2024-12-04 12:27 | Outpatient (AMB) | payer MEDICARE, OTHER, SELFPAY ==
--- OUTSIDE RECORDS SUMMARY | 2021-05-05 20:20 | XMS_ITS | Encounter Summary ---
Author Organization [facility] Address [address] [facility] [address] [place] [address] Phone Care Team Providers Care Retreader Name Role Phone Checo Romero MD Primary Care Provider [phone] Checo Romero MD Unavailable [phone] Jose Brito MD Unavailable [phone] Casie Stephens MD Unavailable [phone] Encounter Details Date Type Department Care Team (Late st Contact Info) Description 05/05/2021 7:20 PM EST Hospital Encounter [facility] [address] [place] [address] Martha Crabtree PA [address] [place] [address] [email or web address] Social History Tobacco Use Types Packs/Day Years [...] st Contact Info) Description 08/08/2024 Procedure Pass [address] [address] 03/06/2025 1:15 PM EST Appointment [address] [address] Checo Romero MD [address] [place] [address] Drive [address] [place] [phone] documented as of this encounter Procedures [...] apparent foreign body is seen. Procedure Note Kacie Mohr MD - 05/05/2021 XR WRIST 3 [...] on filedocumented in this encounter Care Teams Retreader Relationship Specialty Start Date End Date Checo Romero MD [address] [place] [phone] PCP - General 01/11/17 Checo Romero MD [address] [place] [phone] Historical LMR Provider 01/13/17 Jose Brito MD [address] [place] [phone] [email or web address] Historical LMR Provider 01/13/17 [place] [address] [email or web address] Historical LMR Provider 01/13/17 documented as of this encounter Additional Source Comments The information contained in this document represents components of the legal health record. It is not the complete legal health record.[facility]
[2024-12-04 12:34] VITALS: BMI 29.7
--- NOTE | 2024-12-04 12:34 | MHC.AMNUTRGE ---
VS Expanded 12/04/24 12:34 Height 5 ft 4 in Weight 173 lb 4.533 oz BMI 29.7 Intake Visit Reasons: IFG Allergies loratadine (Claritin) Allergy (Mild, Verified 06/05/24 08:36) Anxiety guaifenesin (From Mucinex) Adverse Reaction (Verified 06/05/24 08:36) Diarrhea Robitussin Maximum Strength Allergy (Mild, Uncoded 06/05/24 08:36) Anxiety Nutrition Presentation Details: Pt presents for MNT f/u Pt reports doing well working on diet modifications, she has questions regarding meal replacements BS Monitoring Most Recent Diabetes Results: Cholesterol, (<200) 140 mg/dL 12/05/24 HDL Cholesterol, (>40) 51 mg/dL 12/05/24 Triglycerides, (<150) 79 mg/dL 12/05/24 Creatinine, (0.5-1.4) 0.84 mg/dL 12/05/24 BUN, (9-16) 16 mg/dL 12/05/24 Sodium, (135-145) 143 mmol/L 12/05/24 Potassium, (3.3-5.1) 4.4 mmol/L 12/05/24 Chloride, (96-108) 109 mmol/L H 12/05/24 Carbon Dioxide, (22-29) 26 mmol/L 12/05/24 Calcium, (8.4-10.2) 9.3 mg/dL 12/05/24 AST, (5-31) 22 U/L 12/05/24 ALT, (0-31) 17 U/L 12/05/24 Total Protein, (6.5-8.0) 7.6 g/dL 12/05/24 Albumin, (3.5-5.0) 4.5 g/dL 12/05/24 [facility] Medical History Age-related osteoporosis without current pathological fracture Fibroids 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 Pulmonary nodules Diverticular disease Pancreatic mass COPD (chronic obstructive pulmonary disease) Allergic rhinitis GERD (gastroesophageal reflux disease) Hypercholesterolemia Surgical History H/O colonoscopy History of arthroplasty of right knee History of left knee replacement Lipoma Social History Housing: House Alcohol intake: never Patient Tobacco Use Status: Never used Tobacco Tobacco use type: Cigarette e-Cigarette/Vaping Use: Never Used Second Hand Smoke Exposure: No service: No Current occupational status: retired Cognitive needs: No Hearing needs: No Vision needs: Yes Assessment & Plan Assessment & Plan (1) Impaired fasting blood sugar: Code(s): R73.01 - Impaired fasting glucose Category: Medical Plan: Wt: 79 Kg (07/18 ), 78 kg(09/17), 12/18 Est kcal needs as per MSJ: 1700 (40% carb, 30% protein/fat) Est fluid needs as per 25-30 ml/d: 2400 Est prot per day as per 1 g/kg bw: 80 Recommend fiber intake : 8-10 g per day and gradually increase to 25-28 g per day for women and 35-38 g for men or as tolerated Recommend sodium intake per day : less than 2000 mg Educated patient on: ( R = reviewed V = verbalizes understanding N/R = needs review N/A = not applicable Food sources of carbohydrate, adequate serving sizes and its role in various health conditions: R Differences between complex carbohydrates a simple carbohydrates, role of fiber in diet: R Lean protein sources of foods: R Differences between types of fats and role in diet (mono on saturated fat fatty acids, saturated fatty acids, trans fats): R basic Food sources of sodium in salt and healthy modifications for heart health in kidney health: R V R/V Vitamins and minerals: R Healthy plate method concept: R Physical activity: Benefits a precaution: R Hypoglycemia protocol (rule of 15): R V N/R Dietary prevention of Hyperglycemia: R,V Patient Instructions: Have a meal replacement with a fruit once a day (30 g protein meal replacement) Coding Level of Care Code Nutr Indiv Subseq ([id number]) Diagnoses Impaired fasting blood sugar R73.01 Time Spent (min) 30
--- OUTSIDE RECORDS SUMMARY | 2024-12-04 16:42 | XMS_ITS | Clinical Summary ---
Author Organization [facility] Address [address] [place] [address] Phone Care Team Providers Care Inside Sales Representative Name Role Phone Checo Romero MD Primary Care Provider Checo Romero MD Unavailable [phone] Jose Brito MD Unavailable Casie Stephens MD Unavailable Allergies Active Allergy Reactions Criticality Noted Date Comments Pollen Extracts 06/11/2017 Medications multivitamin per tablet Active L.scott,acid,ferm ,rhm-B.bif,long (CONTROLLED DELIVERY PROBIOTIC) 126 mg (2 billion cell) TaDE Active ascorbic acid, vitamin C, 100 mg Chew as directed Active rosuvastatin (CRESTOR) 10 MG tablet Take 10 mg by mouth daily. 2 04/17/2017 Active cholecalciferol (VITAMIN D3) 10,000 unit tablet Take 10,000 Units by mouth daily. Active TURMERIC ORAL Take by mouth. Active docosahexaenoic acid/epa (FISH OIL ORAL) Take by mouth. Active Active Problems Problem Noted Date Diagnosed Date Primary osteoarthritis of right knee 06/11/2017 Hyperlipidemia 02/28/2017 Immunizations Immunization Administration Dates Next Due COVID-19 (Pre-01/15) Pfizer Vaccine, mRNA, PF 05/31/2020,05/09/2020 Influenza High-Dose Trivalen t Preservative Free IM 12/19/2018,12/29/2016,01/03/2016,01/29 Influenza Trivalent Adjuvant ed Preservative free IM 01/15/2018 Influenza, Unspecified Formulation 01/12/2017 Pneumococcal conjugate PCV13 05/29/2016 Pneumococcal polysaccharide PPSV23 10/08/2018 Tdap 10/15/2014 Zoster live 05/29/2016 Zoster recombinant 04/21/2021,01/24/2021 Family History Medical History Relation Comments Breast cancer Mother Relation Status Comments Mother Social History Tobacco Use Types Packs/Day Years Used Date Smoking Tobacco: Never Smokeless Tobacco: Never Tobacco Cessation:Counseling Given: Not Answered Alcohol Use Standard Drinks/Week Comments Never 0 [...] on file Sexual Orientation Not on file Last Filed Vital Signs Vital Sign Reading Time Taken Comments Blood Pressure 138/91 01/11/2023 5:44 PM EDT Pulse 74 01/11/2023 5:44 PM EDT Temperature 37.1 C (98.7 F) 01/11/2023 5:44 PM EDT Respiratory Rate 18 01/11/2023 5:44 PM EDT Oxygen Saturation 97% 01/11/2023 5:44 PM EDT Inhaled Oxygen Concentration - - Weight 79.4 kg (175 lb) 05/05/2021 6:34 PM EST Height 162.6 cm (5' 4 ) 05/05/2021 6:34 PM EST Body Mass Index 30.04 05/05/2021 6:34 PM EST Plan of Treatment Upcoming Encounters Date Type Department Care Team (Late st Contact Info) Description 08/08/2024 Procedure Pass [facility], [facility] [address] [place] [address] 03/06/2025 1:15 PM EST Appointment [facility], [facility] [address] [place] [address] Checo Romero MD [address] [place] [address] [address] [place] [phone] Health Maintenance Due Date Last Done Comments LIPID PANEL 1947 DEPRESSION SCREENING 1959 HEPATITIS C SCREENING 09/20/1965 OSTEOPOROSIS SCREENING INITIAL (ONE-TIME) 09/20/2012 RSV VACCINE (1 - 1-dose 75+ series) 09/20/2022 Adult Td,Tdap Booster 10/15/2024 10/15/2014 INFLUENZA VACCINE (#1) 2024 , 12/12/2021, 12/19/2018, Additional history exists COVID-19 VACCINE ( season) 2024 12/25/2022, 12/12/2021, 07/07/2021, Additional history exists PNEUMOCOCCAL VACCINES (50+ years) Completed 10/08/2018, 05/29/2016 ZOSTER VACCINES Completed 04/21/2021, 11/0 03/2020, 05/29/2016 SMOKING STATUS SCREENING (Once After 26 Yrs) Completed 10/16/2023 HEPATITIS A VACCINES Aged Out No long er eligible based on patient's age to complete this topic HIB VACCINES Aged Out No longer eligi ble based on patient's age to complete this topic MENINGOCOCCAL VACCINES (ACWY) Aged Out No longer eligible based on patient's age to complete this topic MENINGOCOCCAL VACCINES (B) Aged Out N o longer eligible based on patient's age to complete this topic Medical Devices Implanted Type Area Forming Machine Upkeep Mechanic Helper Device Identifier Shelf Expiration Date Model / Serial / Lot Left Knee Replacement Plate Bone 71mm Knee Tibial Tray I Beam Locking Bar Mobile Chrome Maxim Ea Knee [id number] Implanted:Qty: 1 on 06/11/2017 by Jose Brito MD at [facility] Right: Knee [employer] 03/17/2027 [id number] / / [id number] Series A Pat W/Wr Std 34x8.5 1 Peg Knee [id number] Implanted:Qty: 1 on 06/11/2017 by Jose Brito MD at [facility] Right: Knee [employer] 03/02/2022 [id number] / / [id number] Implant Knee 65.0mm Femoral Component Interlok Vanguard Open Box Right Ea Knee 02 - [id number] Implanted:Qty: 1 on 06/11/2017 by Jose Brito MD at [facility] Right: Knee [employer] 03/15/2027 [id number] / / [id number] Cement Bone 40gr [place] Ghv - [id number] Implanted:Qty: 2 on 06/11/2017 by Jose Brito MD at [facility] Right: Knee [employer] 06/23/2018 [id number] / [id number] / [id number] Knee Tibial 71/75 X 12 Bearing E1 Vanguard Ps - [id number] Implanted:Qty: 1 on 06/11/2017 by Jose Brito MD at [facility] Right: Knee [employer] 04/13/2022 [id number] / / [id number] Insurance MEDICARE PART A & B [facility] MEDICARE SUPPLEMENT MEDICARE PART A & B [employer] MEDICARE SUPPLEMENT MEDICARE PART A & B [place] MEDICARE SUPPLEMENT MEDICARE PART A & B [facility] MEDICARE SUPPLEMENT MEDICARE PART A & B [facility] MEDICARE SUPPLEMENT MEDICARE PART A & B [facility] MEDICARE SUPPLEMENT MEDICARE PART A & B [place] MEDICARE SUPPLEMENT MEDICARE PART A & B [place] MEDICARE SUPPLEMENT MEDICARE PART A & B [employer] [facility] MEDICARE SUPPLEMENT Advance Directives For more information, please contact: [phone] (9AM - 5PM [facility], Sunday-Sunday) Documents on File Type Date Recorded Patient International Bank Manager Expl anation Healthcare Proxy 06/15/2017 3:52 PM * Full Code (Presumed) (Latest Code Status on File) Date Activated Date Inactivated Comments 06/11/2017 10:38 AM 06/14/2017 2:09 PM Healthcare Agents on File Name Relationship Healthcare Agent Relationship Communication Unk Unk Other .Primary Health Care Agent (Proxy form on file) Sukhjinder Raines Abdiel Relative Alternate H ealthcare Agent (Proxy form on file) Care Teams Inside Sales Representative Relationship Specialty Start Date End Date Checo Romero MD [address] [place] [address] PCP - General 01/11/17 Checo Romero MD [address] [place] [address] Historical LMR Provider 01/13/17 Jose Brito MD [address] [place] [address] [email or web address] Historical LMR Provider 01/13/17 [place] [address] [email or web address] Historical LMR Provider 01/13/17 Additional Source Comments The information contained in this document represents components of the legal health record. It is not the complete legal health record.[facility]
--- OUTSIDE RECORDS SUMMARY | 2024-12-04 16:43 | XMS_ITS | Encounter Summary ---
Author Organization [facility] Address [address] [place] [address] Phone Care Team Providers Care Creative Specialist Name Role Phone Checo Romero MD Primary Care Provider Checo Romero MD Unavailable Jose Brito MD Unavailable Ramiro Hernandez DO Unavailable [place] Jha MD Unavailable [phone] Marilyn Duval MD Unavailable Paradise Obrien MD Unavailable Casie Stephens MD Unavailable Teetee Morales MD Unavailable [phone] Encounter Details Date Type Department Care Team (Late st Contact Info) Description 06/19/2018 Ancillary Orders Virtual Department [address] [place] [address] Checo Romero MD [address] [place] [address] Breast screening Social History Tobacco Use Types Packs/Day Years Used Date Smoking Tobacco: Never Smokeless Tobacco: Never Alcohol Use Standard Drinks/Week Comments No 0 (1 standard drink = 0.6 oz pur e alcohol) Comments No Sex and Gender Information Value Date Recorded Sex Assigned at Not on file Legal Sex Female 10:05 PM EDT Gender Identity Not on file Sexual Orientation Not on file documented as of this encounter Plan of Treatment Upcoming Encounters Date Type Department Care Team (Late st Contact Info) Description 08/08/2024 Procedure Pass [address] [address] 03/06/2025 1:15 PM EST Appointment [address] [address] Checo Romero MD [address] [place] [phone] documented as of this encounter Results * BI MAMMOGRAM SCREENING WITH TOMOSYNTHESIS WITH CAD (BILATERAL) (08/30/2018 8:43 AM EDT) Anatomical Region Laterality Modality Breast Left, Breast Right, Breast Bilateral Bila teral Mammography 08/30/2018 12:0 8 PM EDT Impressions 08/30/2018 12:14 PM EDT RIGHT BREAST: Negative, no evidence of malignancy. Normal interval follow-up is recommended in 12 months. LEFT BREAST: Benign, no evidence of malignancy. Normal interval follow-up is recommended in 12 months. Please correlate clinically regarding the chronic nipple retraction and if needed, surgical consult is recommended. Bi-RADS: BI-RADS CATEGORY: 2 - Benign finding. DENSITY: There are scattered fibroglandular densities. POS - CDHMAM2 Narrative 08/30/2018 12:14 PM EDT STUDY: Bilateral screening mammography with tomosynthesis and CAD TECHNIQUE: Bilateral full-field digital screening mammography is obtained and read in conjunction with computer-aided detection. Tomosynthesis as well as 2-D C view imaging were obtained. COMPARISON: Comparison made to multiple prior, most recent August 28, 2017, and most remote June 12, 2012. BREAST COMPOSITION: There are scattered areas of fibroglandular density RIGHT BREAST: No significant masses, calcifications or other abnormalities are seen. LEFT BREAST: Chronic retraction of the nipple is not significantly changed from 2017. No significant masses, calcifications or other abnormalities are seen. Procedure Note Tiffanie Lainez MD - 08/30/2018 STUDY: Bilateral screening mammography with tomosynthesis and CAD TECHNIQUE: Bilateral full-field digital screening mammography is obtainedand read in conjunction with computer-aided detection. Tomosynthesis aswell as 2-D C view imaging were obtained. COMPARISON: Comparison made to multiple prior, most recent August 28, 2017,and most remote June 12, 2012. BREAST COMPOSITION: There are scattered areas of fibroglandulardensity RIGHT BREAST: No significant masses, calcifications or otherabnormalities are seen. LEFT BREAST: Chronic retraction of the nipple is not significantlychanged from 2017. No significant masses, calcifications or otherabnormalities are seen. IMPRESSION: RIGHT BREAST: Negative, no evidence of malignancy. Normal intervalfollow-up is recommended in 12 months. LEFT BREAST: Benign, no evidence of malignancy. Normal interval follow-upis recommended in 12 months. Please correlate clinically regarding thechronic nipple retraction and if needed, surgical consult isrecommended. Bi-RADS: BI-RADS CATEGORY: 2 - Benign finding. DENSITY: There are scattered fibroglandular densities. POS - CDHMAM2 Checo Romero MD IMG MG EXAMS Final Result documented in this encounter Visit Diagnoses Diagnosis Breast screening Breast screening, unspecified Breast screening Breast screening, unspecified documented in this encounter Care Teams Creative Specialist Relationship Specialty Start Date End Date Checo Romero MD [address] [place] [phone] PCP - General 01/11/17 Checo Romero MD [address] [place] [phone] Historical LMR Provider 01/13/17 Jose Brito MD [address] [place] [address] [email or web address] Historical LMR Provider 01/13/17 Ramiro Hernandez DO [address] [place] [address] Orthopedics [facility], [place] [address] [email or web address] Historical LMR Provider 01/13/17 04/02/21 [place] Jha MD [address] [address] Historical LMR Provider 01/13/17 2 Marilyn Duval MD [address] [place] [address] Historical LMR Provider 01/13/17 2 Paradise Obrien MD [address] [place] [address] Orthopedics [facility], [place] [address] [email or web address] Historical LMR Provider 01/13/17 [place] [address] [email or web address] Historical LMR Provider 01/13/17 Teetee Morales MD [address] [place] [address] Historical LMR Provider 01/13/17 2 documented as of this encounter Additional Source Comments The information contained in this document represents components of the legal health record. It is not the complete legal health record.[facility]
--- OUTSIDE RECORDS SUMMARY | 2024-12-04 16:43 | XMS_ITS | Encounter Summary ---
Author Organization [facility] Address [address] [place] [address] Phone Care Team Providers Care Educational Guidance Counselor Name Role Phone Checo Romero MD Primary Care Provider Checo Romero MD Unavailable Jose Brito MD Unavailable Ramiro Hernandez DO Unavailable [place] Jha MD Unavailable [phone] Marilyn Duval MD Unavailable Paradise Obrien MD Unavailable Casie Stephens MD Unavailable Teetee Morales MD Unavailable Encounter Details Date Type Department Care Team (Late st Contact Info) Description 06/11/2017 Procedure Pass [place] Admitting Dept - Virtual Department [address] [place] [address] Social History Tobacco Use Types Packs/Day Years Used Date Smoking Tobacco: Never Smokeless Tobacco: Never Alcohol Use Standard Drinks/Week Comments No 0 (1 standard drink = 0.6 oz pur e alcohol) Comments Unknown Sex and Gender Information Value Date Recorded Sex Assigned at Not on file Legal Sex Female 10:05 PM EDT Gender Identity Not on file Sexual Orientation Not on file documented as of this encounter Plan of Treatment Upcoming Encounters Date Type Department Care Team (Late st Contact Info) Description 08/08/2024 Procedure Pass [address] [address] 03/06/2025 1:15 PM EST Appointment [address] [address] Checo Romero MD [address] [place] [address] [place] [phone] documented as of this encounter Visit Diagnoses Not on filedocumented in this encounter Care Teams Educational Guidance Counselor Relationship Specialty Start Date End Date Checo Romero MD [address] [place] [phone] PCP - General 01/11/17 Checo Romero MD [address] [place] [phone] Historical LMR Provider 01/13/17 Jose Brito MD [address] [place] [address] [email or web address] Historical LMR Provider 01/13/17 Ramiro Hernandez DO [address] [place] [address] Orthopedics & Sports Medicine, [place] [address] [email or web address] Historical LMR Provider 01/13/17 04/02/21 [place] Jha MD [address] [place] [address] Historical LMR Provider 01/13/17 Marilyn Ruiz MD [address], [place] Historical LMR Provider 01/13/17 2 Paradise Obrien MD [address] [place] [address] Orthopedics [facility] Sports Medicine, [facility] [place] [address] [email or web address] Historical LMR Provider 01/13/17 [place] [address] [email or web address] Historical LMR Provider 01/13/17 Teetee Morales MD [address], [place] Historical LMR Provider 01/13/17 2 documented as of this encounter Additional Source Comments The information contained in this document represents components of the legal health record. It is not the complete legal health record.[facility]
--- OUTSIDE RECORDS SUMMARY | 2024-12-04 16:43 | XMS_ITS | Encounter Summary ---
Author Organization [facility] Address [address] [place] [address] Phone Care Team Providers Care Fan Mail Clerk Name Role Phone Checo Romero MD Primary Care Provider [phone] Checo Romero MD Unavailable [phone] Jose Brito MD Unavailable Casie Stephens MD Unavailable [phone] Encounter Details Date Type Department Care Team (Late st Contact Info) Description 08/08/2024 Transcribe Orders Virtual Department 30 [place] [address] Checo Romero MD [address] [place] [phone] Breast screening (Primary Dx) Social History Tobacco Use Types Packs/Day Years [...] st Contact Info) Description 08/08/2024 Procedure Pass [address] [address] 03/06/2025 1:15 PM EST Appointment [address] [address] Checo Romero MD [address] [place] [phone] Scheduled Orders Name Type Priority Associated Diagnoses Orde r Schedule Mammogram Screening (Bilateral) Imaging Routine Breast screening Expected: 08/08/2024, Expires: 08/08/2025 documented as of this encounter Visit Diagnoses Diagnosis Breast screening- Primary Breast screening, unspecified documented in this encounter Care Teams Fan Mail Clerk Relationship Specialty Start Date End Date Checo Romero MD [address] [place] [phone] PCP - General 01/11/17 Checo Romero MD [address] [place] [address] [phone] Historical LMR Provider 01/13/17 Jose Brito MD [address] [place] [address] [email or web address] Historical LMR Provider 01/13/17 [place] [address] [email or web address] Historical LMR Provider 01/13/17 documented as of this encounter Additional Source Comments The information contained in this document represents components of the legal health record. It is not the complete legal health record.[facility]
--- OUTSIDE RECORDS SUMMARY | 2024-12-04 16:43 | XMS_ITS | Encounter Summary ---
Author Organization [facility] Address [address] [facility] [address] [facility] [address] [place] [address] Phone Care Team Providers Care Account Classification Clerk Name Role Phone Checo Romero MD Primary Care Provider [phone] Checo Romero MD Unavailable Jose Brito MD Unavailable Ramiro Hernandez DO Unavailable Georgia Jha MD Unavailable [phone] Marilyn Duval MD Unavailable Paradise Obrien MD Unavailable Casie Stephens MD Unavailable Teetee Morales MD Unavailable [phone] Encounter Details Date Type Department Care Team (Late st Contact Info) Description 09/06/2020 Transcribe Orders Virtual Department 30 [place] [address] Checo Romero MD [address] [place] [phone] Breast screening (Primary Dx) Social History [...] st Contact Info) Description 08/08/2024 Procedure Pass [address] [address] 03/06/2025 1:15 PM EST Appointment [address] [address] Checo Romero MD [address] [place] [address] [address] [place] [phone] documented as of this encounter Results * BI MAMMOGRAM SCREENING WITH TOMOSYNTHESIS WITH CAD (BILATERAL) (09/29/2020 9:35 AM EDT) Anatomical Region Laterality Modality Breast Left, Breast Right, Breast Bilateral Bila teral Mammography 09/29/2020 10:1 9 AM EDT Impressions 09/29/2020 10:22 AM EDT No findings suspicious for malignancy are identified. In the absence of a worrisome palpable abnormality, annual screening mammography is recommended. BI-RADS CATEGORY: 1 - Negative. DENSITY: There are scattered fibroglandular densities. Narrative 09/29/2020 10:22 AM EDT COMPARISON: 06/24/2014 through 09/25/2019 Bilateral 3-D tomosynthesis with 2-D reconstructions in the CC and MLO projection. Computer-aided detection system also utilized. No new mass, asymmetry, architectural distortion or suspicious calcifications have become apparent on either side. Procedure Note Parag Jackson MD - 09/29/2020 COMPARISON: 06/24/2014 through 09/25/2019 Bilateral 3-D tomosynthesis with 2-D reconstructions in the CC and MLOprojection. Computer-aided detection system also utilized. No new mass, asymmetry, architectural distortion or suspiciouscalcifications have become apparent on either side. IMPRESSION: No findings suspicious for malignancy are identified. In the absence of aworrisome palpable abnormality, annual screening mammography isrecommended. BI-RADS CATEGORY: 1 - Negative. DENSITY: There are scattered fibroglandular densities. Checo Romero MD IMG MG EXAMS Final Result documented in this encounter Visit Diagnoses Diagnosis Breast screening- Primary Breast screening, unspecified Breast screening Breast screening, unspecified documented in this encounter Care Teams Account Classification Clerk Relationship Specialty Start Date End Date Checo Romero MD [address] [facility] [address] [place] [phone] PCP - General 01/11/17 Checo Romero MD [address] [place] [address] [place] [address] [phone] Historical LMR Provider 01/13/17 Jose Brito MD [address] [place] [address] [email or web address] Historical LMR Provider 01/13/17 Ramiro Hernandez DO [address] [place] [address] Orthopedics & Sports Medicine, [facility] [place] [address] [email or web address] Historical LMR Provider 01/13/17 04/02/21 Georgia Jha MD [address], [place] [address] Historical LMR Provider 01/13/17 Marilyn Ruiz MD [address] [place] [address] Historical LMR Provider 01/13/17 2 Paradise Obrien MD 4 [facility] [place] [address] [email or web address] Historical LMR Provider 01/13/17 [place] [address] [email or web address] Historical LMR Provider 01/13/17 Teetee Morales MD [address] [place], [place] Historical LMR Provider 01/13/17 2 documented as of this encounter Additional Source Comments The information contained in this document represents components of the legal health record. It is not the complete legal health record.[facility]
--- OUTSIDE RECORDS SUMMARY | 2024-12-04 16:43 | XMS_ITS | Encounter Summary ---
Author Organization [facility] Address [address] [place] [address] Phone Care Team Providers Care Instrument Technician Name Role Phone Checo Romero MD Primary Care Provider [phone] Checo Romero MD Unavailable Jose Brito MD Unavailable Ramior Hernandez DO Unavailable Georgia Jha MD Unavailable [phone] Marilyn Duval MD Unavailable Paradise Obrien MD Unavailable Casie Stephens MD Unavailable Teetee Morales MD Unavailable [phone] Encounter Details Date Type Department Care Team (Late st Contact Info) Description 08/05/2019 Ancillary Orders Virtual Department 30 [place] [address] [place] [phone] [email or web address] Breast screening Social History Tobacco Use Types [...] st Contact Info) Description 08/08/2024 Procedure Pass [address] [address] 03/06/2025 1:15 PM EST Appointment [address] [address] Checo Romero MD [address] [facility] [address] [place] [phone] documented as of this encounter Results * BI MAMMOGRAM SCREENING WITH TOMOSYNTHESIS WITH CAD (BILATERAL) (09/25/2019 11:35 AM EDT) Anatomical Region Laterality Modality Breast Left, Breast Right, Breast Bilateral Bila teral Mammography 09/25/2019 12:1 3 PM EDT Impressions 09/25/2019 12:15 PM EDT No mammographic evidence of malignancy. Stable left nipple retraction. Continued annual screening mammography recommended. BI-RADS CATEGORY: 2 - Benign finding. DENSITY: There are scattered fibroglandular densities. POS - [id number] Narrative 09/25/2019 12:15 PM EDT Standard digital full-field 2-D C view and two-plane tomographic imaging was performed and compared with multiple prior studies, most recently 08/30/2018, with utilization of computer-aided detection. The breasts are composed of scattered fibroglandular densities. The stromal markings are essentially unchanged in overall appearance and distribution. No dominant spiculated mass, suspicious clustered microcalcifications, or focal zone of pathologic skin thickening or retraction are noted to have arisen in the interim. There is chronic grossly stable left nipple retraction and bilateral punctate and coarse lpzsbn-hxwrziodx-trbamkunm microcalcifications and vascular calcifications. Procedure Note Concetta Lyn MD - 09/25/2019 Standard digital full-field 2-D C view and two-plane tomographic imagingwas performed and compared with multiple prior studies, most dmuxlvce07/07/2019, with utilization of computer-aided detection. The breasts are composed of scattered fibroglandular densities. Thestromal markings are essentially unchanged in overall appearance anddistribution. No dominant spiculated mass, suspicious clusteredmicrocalcifications, or focal zone of pathologic skin thickening orretraction are noted to have arisen in the interim. There is chronicgrossly stable left nipple retraction and bilateral punctate and dsatexsdevty-bhnhrcbzr-fimifxdog microcalcifications and vascularcalcifications. IMPRESSION: No mammographic evidence of malignancy. Stable left nipple retraction.Continued annual screening mammography recommended. BI-RADS CATEGORY: 2 - Benign finding. DENSITY: There are scattered fibroglandular densities. POS - [id number] Casie Stephens MD IMG MG EXAMS Final Res ult documented in this encounter Visit Diagnoses Diagnosis Breast screening Breast screening, unspecified Breast screening Breast screening, unspecified documented in this encounter Care Teams Instrument Technician Relationship Specialty Start Date End Date Checo Romero MD [address] [facility] [address] [facility] [address] [place] [phone] PCP - General 01/11/17 Checo Romero MD [address] [facility] [address] [facility] [address] [place] [phone] Historical LMR Provider 01/13/17 Jose Brito MD [address] [place] [address] [phone] [email or web address] Historical LMR Provider 01/13/17 Ramiro Hernandez DO [address] [place] [address] Orthopedics & Sports Medicine, [place], [place] [phone] [email or web address] Historical LMR Provider 01/13/17 04/02/21 Georgia Jha MD [address] [place] [address] Historical LMR Provider 01/13/17 2 Marilyn Duval MD [address] [place] [phone] Historical LMR Provider 01/13/17 2 Paradise Obrien MD [address] [place] [address] Orthopedics & Sports Medicine, [place] [address] [email or web address] Historical LMR Provider 01/13/17 [place] [address] [email or web address] Historical LMR Provider 01/13/17 Teetee Morales MD [address] [place], [place] Historical LMR Provider 01/13/17 2 documented as of this encounter Additional Source Comments The information contained in this document represents components of the legal health record. It is not the complete legal health record.[facility]
--- OUTSIDE RECORDS SUMMARY | 2024-12-04 16:43 | XMS_ITS | Patient Health Record ---
Author Organization [facility] Address [address] [place] [phone] Care Team Providers Care Medical Record Retrieval Specialist Name Role Phone Checo Romero MD [...] Problem Status W/U Status Risk Notes Problem [id number] Colon cancer screening (Z12.11) Active confirmed Problem [id number] Colitis (K52.9) Active confirmed Problem [id number] Long-term curren t use of high risk medication other than anticoagulant (Z79.899) Active confirmed Plan Of Treatment Future Test Test Name Order Date COLONOSCOPY 02/02/2016 COLONOSCOPY 08/10/2021 Insurance Providers Payer Name Payer Address Payer Phone Subscriber Number Group Number Insured Name Patient Relationship to Insured Coverage Start Date Coverage End Date MEDICARE OF [place] [address] [place] [address] [id number] PEPPER BROOKS Self - patient is the insured ON LICENSE OF [facility] IN[facility]MNITY [address] [place] [address] [id number] PEPPER BROOKS Self - patient is the insured Medical (General) History Medical History History ICD Code colonoscopy 2017, hyperplast ic polyp, five-year followup due to prior history of adenomas. 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
--- OUTSIDE RECORDS SUMMARY | 2024-12-04 16:43 | XMS_ITS | Encounter Summary ---
Author Organization [facility] Address [address] [place] [address] Phone Care Team Providers Care Magistrate Assistant Name Role Phone Checo Romero MD Primary Care Provider Checo Romero MD Unavailable Jose Brito MD Unavailable Ramiro Hernandez DO Unavailable Georgia Jha MD Unavailable [phone] Marilyn Duval MD Unavailable Paradise Obrien MD Unavailable Casie Stephens MD Unavailable Teetee Morales MD Unavailable [phone] Encounter Details Date Type Department Care Team (Late st Contact Info) Description 06/25/2017 Ancillary Orders [facility] Orthopedics & Sports Medicine [address] [place] [address] Lilia Shane PA-C [address] [place] [address] Orthopedics & Sports Medicine, [facility] [place] [address] Social History Tobacco Use Types Packs/Day Years [...] st Contact Info) Description 08/08/2024 Procedure Pass [address] [address] 03/06/2025 1:15 PM EST Appointment [address] [address] Checo Romero MD [address] [place] [phone] documented as of this encounter Visit Diagnoses Not on filedocumented in this encounter Care Teams Magistrate Assistant Relationship Specialty Start Date End Date Checo Romero MD [address] [place] [phone] PCP - General 01/11/17 Checo Romero MD [address] [facility] [address] [place] [address] [phone] Historical LMR Provider 01/13/17 Jose Brito MD [address] [place] [address] [email or web address] Historical LMR Provider 01/13/17 Ramiro Hernandez DO [address] [place] [address] Orthopedics & Sports Medicine, [place], [place] [phone] [email or web address] Historical LMR Provider 01/13/17 04/02/21 Georgia Jha MD [address] [place] [address] Historical LMR Provider 01/13/17 2 Marilyn Duval MD [address] [place] [address] Historical LMR Provider 01/13/17 2 Paradise Obrien MD [address] [place] [address] Orthopedics & Sports Medicine, [facility] [place] [address] [email or web address] Historical LMR Provider 01/13/17 [place] [address] [email or web address] Historical LMR Provider 01/13/17 Teetee Morales MD [address] [place], [place] Historical LMR Provider 01/13/17 2 documented as of this encounter Additional Source Comments The information contained in this document represents components of the legal health record. It is not the complete legal health record.[facility]
--- OUTSIDE RECORDS SUMMARY | 2024-12-04 16:43 | XMS_ITS | Encounter Summary ---
Author Organization [facility] Address [address] [place] [address] Phone Care Team Providers Care Restaurant Assistant Name Role Phone Checo Romero MD Primary Care Provider Checo Romero MD Unavailable Jose Brito MD Unavailable Ramiro Hernandez DO Unavailable Georgia Jha MD Unavailable Marilyn Duval MD Unavailable Paradise Obrien MD Unavailable Casie Stephens MD Unavailable Teetee Morales MD Unavailable [phone] Encounter Details Date Type Department Care Team (Late st Contact Info) Description 09/06/2020 Procedure Pass [facility], [facility] [address] [place] [address] Social History Tobacco Use Types Packs/Day Years [...] st Contact Info) Description 08/08/2024 Procedure Pass [address] [address] 03/06/2025 1:15 PM EST Appointment [address] [address] Checo Romero MD [address] [place] [address] [place] [phone] documented as of this encounter Visit Diagnoses Not on filedocumented in this encounter Care Teams Restaurant Assistant Relationship Specialty Start Date End Date Checo Romero MD [address] [place] [phone] PCP - General 01/11/17 Checo Romero MD [address] [place] [phone] Historical LMR Provider 01/13/17 Jose rBito MD [address] [place] [address] [email or web address] Historical LMR Provider 01/13/17 Ramiro Hernandez DO [address] [place] [address] Orthopedics & Sports Medicine, [place] [address] [email or web address] Historical LMR Provider 01/13/17 04/02/21 Georgia Jha MD [address] [place] [address] Historical LMR Provider 01/13/17 Marilyn Ruiz MD [address] [place], [place] Historical LMR Provider 01/13/17 2 Paradise Obrien MD 4 [facility] Orthopedics & Sports Medicine, [facility] [place] [address] [email or web address] Historical LMR Provider 01/13/17 [place] [address] [email or web address] Historical LMR Provider 01/13/17 Teetee Morales MD [address], [place] Historical LMR Provider 01/13/17 2 documented as of this encounter Additional Source Comments The information contained in this document represents components of the legal health record. It is not the complete legal health record.[facility]
--- OUTSIDE RECORDS SUMMARY | 2024-12-04 16:43 | XMS_ITS | Encounter Summary ---
Author Organization [facility] Address [address] [place] [address] Phone Care Team Providers Care Volleyball Player Name Role Phone Checo Romero MD Primary Care Provider [phone] Checo Romero MD Unavailable [phone] Jose Brito MD Unavailable [phone] Casie Stephens MD Unavailable [phone] Encounter Details Date Type Department Care Team (Late st Contact Info) Description 08/10/2021 Procedure Pass [address] [address] Social History Tobacco Use Types Packs/Day Years [...] st Contact Info) Description 08/08/2024 Procedure Pass [address] [address] 03/06/2025 1:15 PM EST Appointment [address] [address] Checo Romero MD [address] [place] [phone] documented as of this encounter Visit Diagnoses Not on filedocumented in this encounter Care Teams Volleyball Player Relationship Specialty Start Date End Date Checo Romero MD [address] [place] [address] [phone] PCP - General 01/11/17 Checo Romero MD [address] [place] [phone] Historical LMR Provider 01/13/17 Jose Brito MD [address] [place] [address] [email or web address] Historical LMR Provider 01/13/17 [place] [address] [email or web address] Historical LMR Provider 01/13/17 documented as of this encounter Additional Source Comments The information contained in this document represents components of the legal health record. It is not the complete legal health record.[facility]
--- OUTSIDE RECORDS SUMMARY | 2024-12-04 16:43 | XMS_ITS | Encounter Summary ---
Author Organization [facility] Address [address] [place] [address] Phone Care Team Providers Care Linux Engineer Name Role Phone Checo Romero MD Primary Care Provider Checo Romero MD Unavailable Jose Brito MD Unavailable Ramiro Hernandez DO Unavailable Georgia Jha MD Unavailable [phone] Marilyn Duval MD Unavailable Paradise Obrien MD Unavailable Casie Stephens MD Unavailable Teetee Morales MD Unavailable [phone] Encounter Details Date Type Department Care Team (Late st Contact Info) Description 06/25/2017 Ancillary Orders [address] [phone] Lilia Shane PA-C [address] [place] [address] Orthopedics & Sports Medicine, [place], [place] [phone] [email or web address] Right knee pain, unspecified chronicity Social History Tobacco Use Types Packs/Day Years [...] st Contact Info) Description 08/08/2024 Procedure Pass [address] [address] 03/06/2025 1:15 PM EST Appointment [address] [address] Checo Romero MD [address] [place] [phone] documented as of this encounter Results * XR KNEE 3 VIEW (RIGHT) (06/27/2017 10:16 AM EDT) Narrative Ciara Rocha - 06/27/2017 10:19 AM EDT This image report has been auto-finalized and has not been read by a Radiologist. Interpretation has been included in the provider encounter note for this date of service. Lilia Shane PA-C IMG XR LOWER EXTREMITY F inal Result documented in this encounter Visit Diagnoses Diagnosis Right knee pain, unspecified chronicity Right knee pain, unspecified chronicity documented in this encounter Care Teams Linux Engineer Relationship Specialty Start Date End Date Checo Romero MD [address] [place] [phone] PCP - General 01/11/17 Checo Romero MD [address] [place] [phone] Historical LMR Provider 01/13/17 Jose Brito MD [address] [place] [address] [email or web address] Historical LMR Provider 01/13/17 Ramiro Hernandez DO [address] [place] [address] Orth[facility]ics [facility], [place] [address] [email or web address] Historical LMR Provider 01/13/17 04/02/21 Georgia Jha MD [address] [address] Historical LMR Provider 01/13/17 2 Marilyn Duval MD [address] [place] [address] Historical LMR Provider 01/13/17 2 Paradise Obrien MD [address] [place] [address] [facility], [place] [address] [email or web address] Historical LMR Provider 01/13/17 [place] [address] [email or web address] Historical LMR Provider 01/13/17 Teetee Morales MD [address] [place], [place] Historical LMR Provider 01/13/17 2 documented as of this encounter Additional Source Comments The information contained in this document represents components of the legal health record. It is not the complete legal health record.[facility]
--- OUTSIDE RECORDS SUMMARY | 2024-12-04 16:43 | XMS_ITS | Encounter Summary ---
Author Organization [facility] Address [address] [place] [address] Phone Care Team Providers Care Amusement Equipment Operator Name Role Phone Checo Romero MD Primary Care Provider [phone] Checo Romero MD Unavailable [phone] Jose Brito MD Unavailable [phone] Casie Stephens MD Unavailable [phone] Encounter Details Date Type Department Care Team (Late st Contact Info) Description 08/10/2021 Transcribe Orders Virtual Department [address] [place] [address] Teetee Morales MD [address] [place] [phone] Breast screening (Primary Dx) Social History Tobacco [...] Encounters Date Type Department Care Team (Late Contact Info) Description 08/08/2024 Procedure Pass [facility], [facility]- [facility] [address] [place] [address] 03/06/2025 1:15 PM EST Appointment [facility], Mammography- [facility] [address] [place] [address] Checo Romero MD [address] [place] [phone] documented as of this encounter Results * (ABNORMAL) BI MAMMOGRAM SCREENING WITH TOMOSYNTHESIS WITH CAD (BILATERAL) (10/06/2021 8:37 AM EDT) Anatomical Region Laterality Modality Breast Left, Breast Right, Breast Bilateral Bila teral Mammography 10/06/2021 9:05 AM EDT Impressions 10/06/2021 9:44 AM EDT Recommend recalling the patient for a left breast asymmetry. Radiology department will attempt to recall the patient. Recall views: Spot compression left cc view, left ML view. Ultrasound. BI-RADS CATEGORY: 0 - Incomplete. Need additional imaging evaluation. DENSITY: There are scattered fibroglandular densities. LEFT RECOMMENDATION DUE DATE: 1 month. Left Additional Imaging RIGHT RECOMMENDATION DUE DATE: on schedule Right Mammography Screening Narrative 10/06/2021 9:44 AM EDT 76-year-old female. Comparison made to previous on 09/29/2020 and as far back as 02/25/2004. Interpretation made in conjunction with computer-aided detection and tomosynthesis. There are scattered areas of fibroglandular density. Chronic subcentimeter right breast nodule and benign bilateral vascular calcifications. New 6 mm nodular asymmetry in the lateral left breast on the cc view only. It is 7 cm in the nipple. There are no suspicious masses, areas of architectural distortion, or suspicious clusters of microcalcifications. Procedure Note Carlos Fontenot MD - 10/06/2021 76-year-old female. Comparison made to previous on 09/29/2020 and as farback as 02/25/2004. Interpretation made in conjunction with computer-aideddetection and tomosynthesis. There are scattered areas of fibroglandular density. Chronic subcentimeterright breast nodule and benign bilateral vascular calcifications. New 6 mmnodular asymmetry in the lateral left breast on the cc view only. It is 7cm in the nipple. There are no suspicious masses, areas of architectural distortion, orsuspicious clusters of microcalcifications. IMPRESSION: Recommend recalling the patient for a left breast asymmetry. Radiologydepartment will attempt to recall the patient. Recall views: Spot compression left cc view, left ML view. Ultrasound. BI-RADS CATEGORY: 0 - Incomplete. Need additional imaging evaluation. DENSITY: There are scattered fibroglandular densities. LEFT RECOMMENDATION DUE DATE: 1 month. Left Additional Imaging RIGHT RECOMMENDATION DUE DATE: on schedule Right Mammography Screening Teetee Morales MD IMG MG EXAMS Radha l Result documented in this encounter Visit Diagnoses Diagnosis Breast screening- Primary Breast screening, unspecified Breast screening Breast screening, unspecified documented in this encounter Care Teams Amusement Equipment Operator Relationship Specialty Start Date End Date Checo Romero MD [address] [place] [phone] PCP - General 01/11/17 Checo Romero MD [address] [place] [address] Drive [address] [place] [phone] Historical LMR Provider 01/13/17 Jose Brito MD [address] [place] [address] [email or web address] Historical LMR Provider 01/13/17 [place] [address] [email or web address] Historical LMR Provider 01/13/17 documented as of this encounter Additional Source Comments The information contained in this document represents components of the legal health record. It is not the complete legal health record.[facility]
--- OUTSIDE RECORDS SUMMARY | 2024-12-04 16:43 | XMS_ITS | Encounter Summary ---
Author Organization [facility] Address [address] [place] [address] Phone Care Team Providers Care Nuclear Physics Teacher Name Role Phone Checo Romero MD Primary Care Provider [phone] Checo Romero MD Unavailable [phone] Jose Brito MD Unavailable [phone] Casie Stephens MD Unavailable [phone] Encounter Details Date Type Department Care Team (Late st Contact Info) Description 10/06/2021 Procedure Pass [address] [address] Social History Tobacco Use Types Packs/Day Years [...] st Contact Info) Description 08/08/2024 Procedure Pass [address] [address] 03/06/2025 1:15 PM EST Appointment [address] [address] Checo Romero MD [address] [place] [phone] documented as of this encounter Visit Diagnoses Not on filedocumented in this encounter Care Teams Nuclear Physics Teacher Relationship Specialty Start Date End Date Checo Romero MD [address] [place] [phone] PCP - General 01/11/17 Checo Romero MD [address] [place] [phone] Historical LMR Provider 01/13/17 Jose Brito MD [address] [place] [address] [email or web address] Historical LMR Provider 01/13/17 [place] [address] [email or web address] Historical LMR Provider 01/13/17 documented as of this encounter Additional Source Comments The information contained in this document represents components of the legal health record. It is not the complete legal health record.[facility]
--- OUTSIDE RECORDS SUMMARY | 2024-12-04 16:43 | XMS_ITS | Encounter Summary ---
Author Organization [facility] Address [address] [address] Phone Care Team Providers Care Edger Operator Name Role Phone Checo Romero MD Primary Care Provider [phone] Checo Romero MD Unavailable [phone] Jose Brito MD Unavailable [phone] Casie Stephens MD Unavailable [phone] Encounter Details Date Type Department Care Team (Late st Contact Info) Description 06/07/2023 Procedure Pass [facility], [address] [address] Social History Tobacco Use Types Packs/Day Years [...] st Contact Info) Description 08/08/2024 Procedure Pass [address] [address] 03/06/2025 1:15 PM EST Appointment [address] [address] Checo Romero MD [address] [facility] [address] [place] [phone] documented as of this encounter Visit Diagnoses Not on filedocumented in this encounter Care Teams Edger Operator Relationship Specialty Start Date End Date Checo Romero MD [address] [place] [phone] PCP - General 01/11/17 Checo Romero MD [address] [place] [phone] Historical LMR Provider 01/13/17 Jose Brito MD [address] [place] [address] [email or web address] Historical LMR Provider 01/13/17 [place] [address] [email or web address] Historical LMR Provider 01/13/17 documented as of this encounter Additional Source Comments The information contained in this document represents components of the legal health record. It is not the complete legal health record.[facility]
--- OUTSIDE RECORDS SUMMARY | 2024-12-04 16:43 | XMS_ITS | Encounter Summary ---
Author Organization [facility] Address [address] [facility] [address] [place] [address] Phone Care Team Providers Care Fireproof Door Assembler Name Role Phone Checo Romero MD Primary Care Provider [phone] Checo Romero MD Unavailable [phone] Jose Brito MD Unavailable Casie Stephens MD Unavailable [phone] Encounter Details Date Type Department Care Team (Late st Contact Info) Description 06/07/2023 Transcribe Orders Virtual Department [address] [place] [address] Checo Romero MD [address] [place] [phone] Breast screening (Primary Dx) Social History [...] st Contact Info) Description 08/08/2024 Procedure Pass [address] [address] 03/06/2025 1:15 PM EST Appointment [address] [address] Checo Romero MD [address] [place] [address] Drive [address] [place] [phone] documented as of this encounter Results * BI MAMMOGRAM SCREENING WITH TOMOSYNTHESIS WITH CAD (BILATERAL) (10/16/2023 10:45 AM EDT) Anatomical Region Laterality Modality Breast Left, Breast Right, Breast Bilateral Bila teral Mammography 10/17/2023 11:0 6 AM EDT Impressions 10/17/2023 11:08 AM EDT No mammographic evidence of malignancy in either breast. Annual screening mammography is recommended. BI-RADS 1 NEGATIVE The patient will be notified of the results and recommendations. Narrative 10/17/2023 11:08 AM EDT BI MAMMOGRAM SCREENING WITH TOMOSYNTHESIS WITH CAD (BILATERAL) Additional patient information: Screening. COMPARISON: Comparison is made with relevant prior imaging. Breast composition: There are scattered areas of fibroglandular density. FINDINGS: There is stable appearing, bilateral nipple inversion. No abnormal masses, suspicious calcifications, or other significant findings are identified mammographically in either breast. There has been no interval change. Procedure Note Eufemia Beyer MD - 10/17/2023 BI MAMMOGRAM SCREENING WITH TOMOSYNTHESIS WITH CAD (BILATERAL) Additional patient information: Screening. COMPARISON: Comparison is made with relevant prior imaging. Breast composition: There are scattered areas of fibroglandular density. FINDINGS: There is stable appearing, bilateral nipple inversion. No abnormal masses, suspicious calcifications, or other significantfindings are identified mammographically in either breast. There has been no interval change. IMPRESSION: No mammographic evidence of malignancy in either breast. Annual screening mammography is recommended. BI-RADS 1 NEGATIVE The patient will be notified of the results and recommendations. Checo Romero MD IMG MG EXAMS Final Result documented in this encounter Visit Diagnoses Diagnosis Breast screening- Primary Breast screening, unspecified Breast screening Breast screening, unspecified documented in this encounter Care Teams Fireproof Door Assembler Relationship Specialty Start Date End Date Checo Romero MD [address] [place] [address] [place] [phone] PCP - General 01/11/17 Checo Romero MD [address] [place] [phone] Historical LMR Provider 01/13/17 Jose Brito MD [address] [place] [address] [email or web address] Historical LMR Provider 01/13/17 [place] [address] [email or web address] Historical LMR Provider 01/13/17 documented as of this encounter Additional Source Comments The information contained in this document represents components of the legal health record. It is not the complete legal health record.[facility]
--- OUTSIDE RECORDS SUMMARY | 2024-12-04 16:43 | XMS_ITS | Encounter Summary ---
Author Organization [facility] Address [address] [facility] [address] [place] [address] Phone Care Team Providers Care Mechanical Spreader Operator Name Role Phone Checo Romero MD Primary Care Provider [phone] Checo Romero MD Unavailable [phone] Jose Brito MD Unavailable Casie Stephens MD Unavailable Encounter Details Date Type Department Care Team (Late st Contact Info) Description 08/15/2022 Transcribe Orders Virtual Department [address] [place] [address] Checo Romero MD [address] [place] [phone] Breast screening (Primary Dx) Social History [...] st Contact Info) Description 08/08/2024 Procedure Pass [address] [address] 03/06/2025 1:15 PM EST Appointment [address] [address] Checo Romero MD [address] [place] [address] [address] [place] [phone] documented as of this encounter Results * BI MAMMOGRAM SCREENING WITH TOMOSYNTHESIS WITH CAD (BILATERAL) (10/11/2022 9:02 AM EDT) Anatomical Region Laterality Modality Breast Left, Breast Right, Breast Bilateral Bila teral Mammography 10/13/2022 1:06 PM EDT Impressions 10/13/2022 1:09 PM EDT No findings suspicious for malignancy. In the absence of a worrisome palpable abnormality, annual screening mammography is recommended. BI-RADS CATEGORY: 1 - Negative. DENSITY: There are scattered fibroglandular densities. Narrative 10/13/2022 1:09 PM EDT AVAILABLE COMPARISON: 10/06/2021 through 02/25/2004. Bilateral 3-D tomosynthesis with 2-D reconstructions in the CC and MLO projection. Computer-aided detection system also utilized. No new mass, asymmetry, architectural distortion or suspicious calcifications have become apparent in either breast. Previously identified cyst in the lateral left breast has resolved. Procedure Note Parag Jackson MD - 10/13/2022 AVAILABLE COMPARISON: 10/06/2021 through 02/25/2004. Bilateral 3-D tomosynthesis with 2-D reconstructions in the CC and MLOprojection. Computer-aided detection system also utilized. No new mass, asymmetry, architectural distortion or suspiciouscalcifications have become apparent in either breast. Previously identified cyst in the lateral left breast has resolved. IMPRESSION: No findings suspicious for malignancy. In the absence of a worrisomepalpable abnormality, annual screening mammography is recommended. BI-RADS CATEGORY: 1 - Negative. DENSITY: There are scattered fibroglandular densities. Checo Romero MD IMG MG EXAMS Final Result documented in this encounter Visit Diagnoses Diagnosis Breast screening- Primary Breast screening, unspecified Breast screening Breast screening, unspecified documented in this encounter Care Teams Mechanical Spreader Operator Relationship Specialty Start Date End Date Checo Romero MD [address] [facility] [address] [place] [phone] PCP - General 01/11/17 Checo Romero MD [address] [place] [address] [address] [place] [phone] Historical LMR Provider 01/13/17 Jose Brito MD [address] [place] [address] [email or web address] Historical LMR Provider 01/13/17 [place] [address] [email or web address] Historical LMR Provider 01/13/17 documented as of this encounter Additional Source Comments The information contained in this document represents components of the legal health record. It is not the complete legal health record.[facility]
--- OUTSIDE RECORDS SUMMARY | 2024-12-04 16:43 | XMS_ITS | Encounter Summary ---
Author Organization [facility] Address [address] [address] Phone Care Team Providers Care Ict Sales Representative Name Role Phone Checo Romero MD Primary Care Provider [phone] Checo Romero MD Unavailable [phone] Jose Brito MD Unavailable [phone] Casie Stephens MD Unavailable [phone] Encounter Details Date Type Department Care Team (Late st Contact Info) Description 08/15/2022 Procedure Pass [facility], [address] [address] Social History Tobacco Use Types Packs/Day Years [...] st Contact Info) Description 08/08/2024 Procedure Pass [address] [address] 03/06/2025 1:15 PM EST Appointment [address] [address] Checo Romero MD [address] [facility] [address] [place] [phone] documented as of this encounter Visit Diagnoses Not on filedocumented in this encounter Care Teams Ict Sales Representative Relationship Specialty Start Date End Date Checo Romero MD [address] [place] [phone] PCP - General 01/11/17 Checo Romero MD [address] [place] [phone] Historical LMR Provider 01/13/17 Jose Brito MD [address] [place] [address] [email or web address] Historical LMR Provider 01/13/17 [place] [address] [email or web address] Historical LMR Provider 01/13/17 documented as of this encounter Additional Source Comments The information contained in this document represents components of the legal health record. It is not the complete legal health record.[facility]
--- OUTSIDE RECORDS SUMMARY | 2024-12-04 16:43 | XMS_ITS | Encounter Summary ---
Author Organization [facility] Address [address] [place] [phone] Phone Care Team Providers Care Cutter Woodwind Reeds Name Role Phone Checo Romero MD Primary Care Provider [phone] Checo Romero MD Unavailable Jose Brito MD Unavailable Ramiro Hernandez DO Unavailable Georgia Jha MD Unavailable [phone] Marilyn Duval MD Unavailable Paradise Obrien MD Unavailable Casie Stephens MD Unavailable Teetee Morales MD Unavailable Encounter Details Date Type Department Care Team (Late st Contact Info) Description 03/15/2017 Procedure Pass [facility], [address] [address] Social History Tobacco Use Types Packs/Day Years Used Date Smoking Tobacco: Never Smokeless Tobacco: Never Alcohol Use Standard Drinks/Week Comments Yes 0 (1 standard drink = 0.6 oz [...] Contact Info) Description 08/08/2024 Procedure Pass [address] [address] 03/06/2025 1:15 PM EST Appointment [address] [address] Checo Romero MD [address] [place] [address] [place] [phone] documented as of this encounter Visit Diagnoses Not on filedocumented in this encounter Care Teams Cutter Woodwind Reeds Relationship Specialty Start Date End Date Checo Romero MD [address] [place] [phone] PCP - General 01/11/17 Checo Romero MD [address] [place] [phone] Historical LMR Provider 01/13/17 Jose Brito MD [address] [place] [address] [email or web address] Historical LMR Provider 01/13/17 Ramiro Hernandez DO [address] [place] [address] Orth[facility] Medicine, [place] [address] [email or web address] Historical LMR Provider 01/13/17 04/02/21 Georgia Jha MD [address] [place] [address] Historical LMR Provider 01/13/17 Marilyn Ruiz MD [address] [place], [place] Historical LMR Provider 01/13/17 2 Paradise Obrien MD [address] [facility], [facility] [place] [address] [email or web address] Historical LMR Provider 01/13/17 [place] [address] [email or web address] Historical LMR Provider 01/13/17 Teetee Morales MD [address], [place] Historical LMR Provider 01/13/17 2 documented as of this encounter Additional Source Comments The information contained in this document represents components of the legal health record. It is not the complete legal health record.[facility]
--- OUTSIDE RECORDS SUMMARY | 2024-12-04 16:43 | XMS_ITS | Encounter Summary ---
Author Organization [facility] Address [address] [facility] [address] [place] [address] Phone Care Team Providers Care Stock Sorter Name Role Phone Checo Romero MD Primary Care Provider Checo Romero MD Unavailable Joes Brito MD Unavailable Ramiro Hernandez DO Unavailable Georgia Jha MD Unavailable [phone] Marilyn Duval MD Unavailable Paradise Obrien MD Unavailable Casie Stephens MD Unavailable Teetee Morales MD Unavailable [phone] Encounter Details Date Type Department Care Team (Late st Contact Info) Description 07/20/2017 Ancillary Orders Virtual Department [address] [place] [address] Checo Romero MD [address] [facility] [address] [place] [address] Breast screening Social History Tobacco [...] st Contact Info) Description 08/08/2024 Procedure Pass [address] [address] 03/06/2025 1:15 PM EST Appointment [address] [address] Checo Romero MD [address] [facility] [place] [phone] documented as of this encounter Results * BI MAMMOGRAM SCREENING WITH TOMOSYNTHESIS WITH CAD (BILATERAL) (08/28/2017 12:44 PM EDT) Anatomical Region Laterality Modality Breast Left, Breast Right, Breast Bilateral Bila teral Mammography 08/28/2017 2:26 PM EDT Impressions 08/28/2017 4:01 PM EDT No mammographic signs of malignancy. Annual screening is recommended. BI-RADS CATEGORY: 2 - Benign finding. DENSITY: The breast tissue is almost entirely fat. POS - [id number] Narrative 08/28/2017 4:01 PM EDT Bilateral mammography is performed in conjunction with computed aided detection. 3-D tomography along with 2-D C view imaging was also performed. Comparison made to previous dated as far back as 06/09/2011 and as recent as 07/05/2016. Subcentimeter well-circumscribed 1.8 mass, possibly a lymph node, in the mid one third of the right breast is stable. No suspicious masses, areas of architectural distortion or suspicious microcalcifications. Similar bilateral vascular calcifications. Procedure Note Olu Plasencia MD - 08/28/2017 Bilateral mammography is performed in conjunction with computed aideddetection. 3-D tomography along with 2-D C view imaging was alsoperformed. Comparison made to previous dated as far back as 06/09/2011 andas recent as 07/05/2016. Subcentimeter well-circumscribed 1.8 mass, possibly a lymph node, in themid one third of the right breast is stable. No suspicious masses, areasof architectural distortion or suspicious microcalcifications. Similarbilateral vascular calcifications. IMPRESSION: No mammographic signs of malignancy. Annual screening is recommended. BI-RADS CATEGORY: 2 - Benign finding. DENSITY: The breast tissue is almost entirely fat. POS - [id number] Checo Romero MD IMG MG EXAMS Final Result documented in this encounter Visit Diagnoses Diagnosis Breast screening Breast screening, unspecified Breast screening Breast screening, unspecified documented in this encounter Care Teams Stock Sorter Relationship Specialty Start Date End Date Checo Romero MD [address] [facility] [address] [place] [phone] PCP - General 01/11/17 Checo Romero MD [address] [place] [address] Drive [address] [place] [phone] Historical LMR Provider 01/13/17 Jose Brito MD [address] [place] [address] [email or web address] Historical LMR Provider 01/13/17 Ramiro Hernandez DO [address] [place] [address] Orthopedics & Sports Medicine, [place] [address] [email or web address] Historical LMR Provider 01/13/17 04/02/21 Georgia Jha MD [address] [address] Historical LMR Provider 01/13/17 2 Marilyn Duval MD [address] [place] [address] Historical LMR Provider 01/13/17 2 Paradise Obrien MD 4 [facility] Orth[facility] & [facility] Medicine, [facility] [place] [address] [email or web address] Historical LMR Provider 01/13/17 [place] [address] [email or web address] Historical LMR Provider 01/13/17 Teetee Morales MD [address], [place] [address] Historical LMR Provider 01/13/17 2 documented as of this encounter Additional Source Comments The information contained in this document represents components of the legal health record. It is not the complete legal health record.[facility]
== END 2024-12-04 13:38 | disposition home or self-care (01) ==
LOC: HO.ENCR 12:28
PROVIDERS: PCP Internal Medicine; Visit Provider Dietitian, Registered
DX: R73.01 Impaired fasting glucose (principal)

== ENCOUNTER → 2024-12-04 12:27 | Outpatient (BNVA) | payer MEDICARE, OTHER, SELFPAY | PROVIDERS: PCP Internal Medicine; Visit Provider Dietitian, Registered | DX: R73.01 Impaired fasting glucose (principal); Z71.3 Dietary counseling and surveillance | CPT/HCPCS: 97803 ==

== ENCOUNTER 2024-12-05 08:06 | Outpatient (REF) | payer MEDICARE, OTHER, SELFPAY ==
--- OUTSIDE RECORDS SUMMARY | 2024-12-05 08:24 | XMS_ITS | Patient Health Record ---
Author Organization [facility] Address [address] [place] [phone] Care Team Providers Care Rooming House Operator Name Role Phone Checo Romero MD [...] Problem Status W/U Status Risk Notes Problem [id number] Colon cancer screening (Z12.11) Active confirmed Problem 563676907 Colitis (K52.9) Active confirmed Problem [id number] Long-term curren t use of high risk medication other than anticoagulant (Z79.899) Active confirmed Plan Of Treatment Future Test Test Name Order Date COLONOSCOPY 02/02/2016 COLONOSCOPY 08/10/2021 Insurance Providers Payer Name Payer Address Payer Phone Subscriber Number Group Number Insured Name Patient Relationship to Insured Coverage Start Date Coverage End Date MEDICARE OF [place] [address] [place] [address] [id number] PEPPER BROOKS Self - patient is the insured [facility] IN[facility]MN[facility] [address] [place] [address] [id number] PEPPER BROOKS Self - patient is the insured Medical (General) History Medical History History ICD Code colonoscopy 2017, hyperplast ic polyp, five-year followup due to prior history of adenomas. 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
[2024-12-05 10:18] LABS: MANUAL DIFF FLAG NO
[2024-12-05 10:20] LABS: Hematocrit 41.1 % (37.0-47.0); Hemoglobin 13.9 g/dl (12.0-16.0); Imm Gran Abs Auto 0.00 X10*3/uL (0.00-0.03); Imm Gran Pct Auto 0.0 % (0.0-0.4); Lymphocytes Absolute Auto 1.2 X10*3/uL (1.2-4.9); Mean Corpuscular HGB Conc 33.8 g/dl (31.0-35.0); Mean Corpuscular Hemoglobin 33.0 pg (27.0-33.0); Mean Corpuscular Volume 97.6 fL (80.0-98.0); NRBC Abs Auto 0.000 X10*3/uL (0.0-0.012); NRBC Pct Auto 0.0 /100WBC (0.0-0.2); Platelet Count 205 X10*3/uL (160-400); Red Blood Count 4.21 X10*6/uL (4.20-5.50); White Blood Count 4.0 X10*3/uL (4.8-10.8)
[2024-12-05 10:41] LABS: Hemoglobin A1C 116.9187 umol/L; Total Hemoglobin (HGBA1C) 3531.3859 umol/L
[2024-12-05 10:42] LABS: Alanine Aminotransferase 17 U/L (0-31); Albumin Level 4.5 g/dL (3.5-5.0); Alkaline Phosphatase 73 U/L (39-117); Anion Gap 12 (12-20); Aspartate Amino Transferase 22 U/L (5-31); Blood Urea Nitrogen 16 mg/dL (9-16); Calcium 9.3 mg/dL (8.4-10.2); Carbon Dioxide 26 mmol/L (22-29); Chloride 109 mmol/L (96-108); Cholesterol 140 mg/dL (<200); Estimated Glomerular Filt Rate > 60; HDL Cholesterol 51 mg/dL (>40); Potassium 4.4 mmol/L (3.3-5.1); Sodium 143 mmol/L (135-145); Total Protein 7.6 g/dL (6.5-8.0); Triglycerides 79 mg/dL (<150)
[2024-12-05 11:04] LABS: Ferritin 202 ng/mL (10-250); Free T4 (Free Thyroxine) 1.08 ng/dL (0.71-1.85); Thyroid Stimulating Hormone 2.25 uIU/mL (0.32-4.0)
[2024-12-05 11:07] LABS: Folate 14.6 ng/mL (> or = 4.0); Vitamin B12 744 pg/mL (200-900)
== END 2024-12-05 08:07 | disposition home or self-care (01) ==
LOC: HO.10HDL 08:06
PROVIDERS: Visit Provider Internal Medicine
DX: R73.01 Impaired fasting glucose (principal); E78.00 Pure hypercholesterolemia, unspecified
CPT/HCPCS: 36415; 80053; 80061; 82306; 82607; 82728; 82746; 83036; 84439; 84443; 85025

== ENCOUNTER 2024-12-11 08:18 | Outpatient (AMB) | payer MEDICARE, OTHER, SELFPAY ==
--- OUTSIDE RECORDS SUMMARY | 2021-05-05 20:20 | XMS_ITS | Encounter Summary ---
Author Organization [facility] Address [address] [facility] [address] [place] [phone] Phone Care Team Providers Care Boiler Plant Worker Name Role Phone Checo Romero MD Primary Care Provider [phone] Checo Romero MD Unavailable [phone] Jose Brito MD Unavailable [phone] Casie Stephens MD Unavailable [phone] Encounter Details Date Type Department Care Team (Late st Contact Info) Description 05/05/2021 7:20 PM EST Hospital Encounter [facility] [address] [place] [id number] Martha Crabtree PA [address] [place] [address] [email or web address] Social History Tobacco Use Types Packs/Day Years Used Date Smoking Tobacco: Never Smokeless Tobacco: Never Alcohol Use Standard Drinks/Week Comments Never 0 (1 standard drink = 0.6 oz pur e alcohol) Education Answer Date Recorded Are you interested in more education? Not on aida e 07/21/2022 Are you concerned about learning? Not on file 07/21/2022 No 07/21/2022 No 07/21/2022 Digital Access Answer Date Recorded No 08/15/2022 No 08/15/2022 Reliable internet access at home? Not on file 08/15/2022 Device with a working camera? Not on file Comments No Sex and Gender Information Value Date Recorded Sex Assigned at Not on file Legal Sex Female 10:05 PM EDT Gender Identity Not on file Sexual Orientation Not on file documented as of this encounter Plan of Treatment Upcoming Encounters Date Type Department Care Team (Late st Contact Info) Description 08/08/2024 Procedure Pass [address] [address] 03/06/2025 1:15 PM EST Appointment [address] [address] Checo Romero MD [address] [place] [address] [address] [place] [phone] documented as of this encounter Procedures Procedure Name Priority Date/Time Associated Diagnosis Comments XR WRIST 3 OR MORE VIEWS (RIGHT) Urgent/patient waiting 05/05/2021 7:33 PM EST Right wrist sprain, initial encounter documented in this encounter Results * XR WRIST 3 OR MORE VIEWS (RIGHT) (05/05/2021 7:33 PM EST) Anatomical Region Laterality Modality Wrist Right Computed Radiogr aphy 05/05/2021 7:36 PM EST Impressions 05/05/2021 7:40 PM EST No acute fracture or dislocation. Narrative 05/05/2021 7:40 PM EST XR WRIST 3 OR MORE VIEWS (RIGHT) COMPARISON: None. FINDINGS: There is no acute fracture or traumatic dislocation. There is moderate narrowing of the first CMC and the triscaphe joints. There is no focal soft tissue abnormality. No radiographically apparent foreign body is seen. Procedure Note Kacei Mohr MD - 05/05/2021 XR WRIST 3 OR MORE VIEWS (RIGHT) COMPARISON: None. FINDINGS: There is no acute fracture or traumatic dislocation. There is moderatenarrowing of the first CMC and the triscaphe joints. There is no focalsoft tissue abnormality. No radiographically apparent foreign body isseen. IMPRESSION: No acute fracture or dislocation. Martha PAEZ IMG XR UPPER EXTREMITY Final Result documented in this encounter Visit Diagnoses Not on filedocumented in this encounter Care Teams Boiler Plant Worker Relationship Specialty Start Date End Date Checo Romero MD [address] [place] [phone] PCP - General 01/11/17 Checo Romero MD [address] [place] [phone] Historical LMR Provider 01/13/17 Jose Brito MD [address] [place] [phone] [email or web address] Historical LMR Provider 01/13/17 [place] [address] [email or web address] Historical LMR Provider 01/13/17 documented as of this encounter Additional Source Comments The information contained in this document represents components of the legal health record. It is not the complete legal health record.[facility]
[2024-12-11 08:22] VITALS: BP 134/68; PULSE 65; O2SAT 98; BMI 29.2
--- NOTE | 2024-12-11 08:22 | MHC.PC.OV ---
Vital Signs 12/11/24 08:22 Height 5 ft 4 in Weight 170 lb BMI 29.2 BP 134/68 Blood Pressure Location Lt brachial Position Sitting Pulse 65 Pulse Source Pulse Oximeter Pulse Oximetry (%) 98 Oxygen Delivery Method Room Air Intake Visit Reasons: 6 month f/u Allergies loratadine (Claritin) Allergy (Mild, Verified 12/11/24 08:23) Anxiety guaifenesin (From Mucinex) Adverse Reaction (Verified 12/11/24 08:23) Diarrhea Robitussin Maximum Strength Allergy (Mild, Uncoded 12/11/24 08:23) Anxiety Medication List - Last Reconciled 12/11/24 by Checo Romero MD ascorbic acid (vitamin C) 1,000 mg PO DAILY Bifidobacterium infantis (Align (B.infantis)) 4 mg PO BEDTIME 90 days cholecalciferol (vitamin D3) 25 mcg PO DAILY clobetasol 0.05% 1 appl topical BID 2 weeks flaxseed oil 1,000 mg PO DAILY multivitamin 1 tab PO DAILY rosuvastatin 20 mg PO DAILY Tobacco use date assessed: 12/11/24 Fall risk assessment: No Falls in past year Last assessed Fall Risk: 12/11/24 Dental Screening Dental Screen Date: 12/11/24 Did you have a dental visit in the last 12 months?: Yes Did you have a dental problem in the last 6 months where you did not have access to dental care?: No Was dental information given to patient?: Patient has dentist [facility] Medical History Age-related osteoporosis without current pathological fracture Fibroids 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 Pulmonary nodules Diverticular disease Pancreatic mass COPD (chronic obstructive pulmonary disease) Allergic rhinitis GERD (gastroesophageal reflux disease) Hypercholesterolemia Surgical History H/O colonoscopy History of arthroplasty of right knee History of left knee replacement Lipoma Social History Housing: House Alcohol intake: never Patient Tobacco Use Status: Never used Tobacco Tobacco use type: Cigarette e-Cigarette/Vaping Use: Never Used Second Hand Smoke Exposure: No service: No Current occupational status: retired Cognitive needs: No Hearing needs: No Vision needs: Yes Questionnaire PHQ-9 Over the last 2 weeks, how often have you been bothered by any of the following problems? 1. Little interest or pleasure in doing things: not at all 2. Feeling down, depressed, or hopeless: not at all 3. Trouble falling or staying asleep, or sleeping too much: more than half the days 4. Feeling tired or having little energy: not at all 5. Poor appetite or overeating: not at all 6. Feeling bad about yourself - or that you are a failure or have let yourself or your family down: not at all 7. Trouble concentrating on things, such as reading the newspaper or watching television: not at all 8. Moving or speaking so slowly that other people could have noticed. Or the opposite - being so fidgety or restless that you have been moving around a lot more than usual: not at all 9. Thoughts that you would be better off or of hurting yourself in some way: not at all Total score: 2 Depression Screening Interpretation: Positive Depression Screening Done: Yes Source: Developed by Drs. Dexter Ruiz, Yolande Hobbs, Riccardo Bennett and colleagues, with an educational timi from [employer]. Thrive Questionnaire Date Thrive assessed: 12/09/24 I am a: Patient What is your living situation today?: I have a steady place to live Within the past 12 months, did the food you bought not last and you didn't have the money to get more?: Never true Within the past 12 months, did you worry whether your food would run out before you got money to buy more?: Never true Do you have trouble paying for medicines?: No Do you have trouble getting transportation to medical appointments?: No Do you have trouble paying your heating and electricity bill?: No Do you have trouble taking care of your child, family member or friend?: No Do you have trouble with day-to-day activities such as bathing, preparing meals, shopping, managing finances, etc.?: No Are you currently unemployed and looking for a job?: No Are you interested in more education?: No Please select the resources that you would like help with: None Currently or been in a relationship where the following occur: No concerns reported THRIVE Score: 0 AUDIT C Alcohol Use Questionnaire (AUDIT-C) 1. How often do you have a drink containing alcohol?: Never 3. How often do you have six or more drinks on one occasion?: Never Total Score: 0 MARINA-7 AMB Questionnaire MARINA-7 Date MARINA - 7 assessed: 12/11/24 Feeling nervous, anxious, or on edge: 0 = Not at all Not being able to stop or control worryin = Not at all Worrying too much about different things: 0 = Not at all Trouble relaxin = Not at all Being so restless that it is hard to sit still: 0 = Not at all Becoming easily annoyed or irritable: 0 = Not at all Feeling afraid as if something awful might happen: 0 = Not at all Total MARINA-7 score (0-4 normal; 5-9 mild; 10-14 moderate; 15-21 severe): 0 Source: Developed by Drs. Dexter Ruiz, Yolande Hobbs, Riccardo Bennett and colleagues, with an educational timi from [employer]. Physical exam (Primary Care) Vital Signs: Last Vital Signs Pulse 65 12/11/24 08:22 BP 134/68 12/11/24 08:22 Pulse Ox 98 12/11/24 08:22 Oxygen Delivery Method Room Air 12/11/24 08:22 BMI result Body Mass Index 29.2 Tobacco/Smoking Status: Tobacco use Status Tobacco use date assessed 12/11/24 12/11/24 08:28 Patient Tobacco Use Status Never used Tobacco 12/11/24 08:28 Tobacco use type Cigarette 12/11/24 08:28 e-Cigarette/Vaping Use Never Used 12/11/24 08:28 PHQ-9: PHQ-9 Score PHQ-9: Total score 2 12/11/24 08:37 Depression Screening Interpretation: Positive Thrive Assessment: Date of Thrive Assessment Date Thrive assessed 12/09/24 12/11/24 08:28 Currently or been in a relationship where the following occur: No concerns reported Const General: alert; No acute distress Eyes Conjunctivae: conjunctivae normal Resp Auscultation: clear to auscultation bilaterally Cardio Rate: regular rate Rhythm: regular rhythm GI Inspection: Yes normal to inspection Extrem General: Yes normal to inspection and No edema Coding Level of Care Code Est Pt Level 4 (19042) Complex EM visit Add On G2211 Diagnoses Hypercholesterolemia E78.00 Impaired fasting blood sugar R73.01 Overweight (BMI 25.0-29.9) E66.3 Pulmonary emphysema, unspecified emphysema type J43.9 COPD type: emphysema Emphysema type: unspecified Gastroesophageal reflux disease without esophagitis K21.9 Esophagitis presence: without esophagitis Assessment & Plan Assessment & Plan (1) Hypercholesterolemia: Code(s): E78.00 - Pure hypercholesterolemia, unspecified Category: Medical Plan: Avoid fried foods, chicken skin, eggs, butter margarine, pastries and meat. Be it pork or beef they have a lot of cholesterol patient on rosuvastatin 20 mg once a day (2) Impaired fasting blood sugar: Code(s): R73.01 - Impaired fasting glucose Category: Medical Plan: Decrease the amount of carbohydrate intake, pasta, bread, rice and potatoes are all sugar and that is aside from all the sweet stuff, remember that fruits are good but they are Sweet also. Hemoglobin A1c is normal (3) Overweight (BMI 25.0-29.9): Code(s): E66.3 - Overweight Category: Medical Plan: Continue with diet and exercise (4) COPD (chronic obstructive pulmonary disease): Code(s): J44.9 - Chronic obstructive pulmonary disease, unspecified Category: Medical Qualifiers: COPD type: emphysema Emphysema type: unspecified Qualified Code(s): J43.9 - Emphysema, unspecified Plan: Stable (5) GERD (gastroesophageal reflux disease): Code(s): K21.9 - Gastro-esophageal reflux disease without esophagitis Category: Medical Qualifiers: Esophagitis presence: without esophagitis Qualified Code(s): K21.9 - Gastro-esophageal reflux disease without esophagitis Plan: Avoid the foods that causes that usually spicy foods, tomato products, juices, coffee, soda and foods that your sensitive to. After eating do not lie down, allow 3-4 hours before in lie down. And keep the head of bed above 30 degrees to avoid the acid from going up. Plan History of Present Illness The patient is a 79-year-old female presenting for a follow-up visit. The patient has a history of Gastroesophageal Reflux Disease (GERD), which has been managed with lifestyle modifications and medications. She reports no recent exacerbations or significant symptoms related to GERD. The patient has hypercholesterolemia and is currently on rosuvastatin 20 mg daily. Her LDL cholesterol is well-controlled at 74 mg/dL. The patient has Chronic Obstructive Pulmonary Disease (COPD) and reports no recent episodes of dyspnea or exacerbations. She denies any recent cough or respiratory distress. The patient has osteoarthritis in both knees, which affects her mobility. She engages in regular exercise to manage symptoms and maintain joint function. The patient was diagnosed with osteopenia following a bone density test in March 2024. She is advised to continue weight-bearing exercises and adequate calcium and vitamin D intake. The patient has mild leukopenia, which has been stable over the years without any significant clinical implications. Her complete blood count is otherwise normal, with no anemia detected. The patient has a mildly elevated blood glucose level, but her hemoglobin A1c remains within normal limits at 5.2%. She is advised to continue with dietary modifications and regular exercise to manage her blood glucose levels. The patient follows up with a table and desk finisher to manage her weight and dietary intake. She is encouraged to maintain a balanced diet with adequate protein intake. Health Maintenance - Mammogram scheduled for February - Bone density test conducted in March 2024 showing osteopenia - Colon cancer screening last done in 2021 - Vaccinations: COVID and flu vaccines scheduled for December 22 - Regular exercise and dietary modifications advised for weight management and blood glucose control Social History - Exercise: Regular exercise at a local center, uses an indoor bike, and engages in outdoor activities - Nutrition: Follows a balanced diet with focus on protein intake, consults with a table and desk finisher - Social Interaction: Values social interaction, attends a local center for exercise and socializing Review of Systems - Respiratory: Denies dyspnea, cough, or respiratory distress - Cardiovascular: Denies chest pain or palpitations - Gastrointestinal: Reports stable bowel movements, denies significant GERD symptoms - Musculoskeletal: Reports knee pain due to osteoarthritis - Neurological: Reports difficulty falling back to sleep after waking at night Physical Exam - Cardiovascular: Heart and lungs auscultated, no abnormalities noted Results - Labs: Mild leukopenia, normal hemoglobin A1c at 5.2%, LDL cholesterol at 74 mg/dL - Tests: Bone density test in March 2024 showing osteopenia Plan Patient was informed and verbally consented to the use of an ambient scribe for clinic note documentation during this visit. 1. Gastroesophageal Reflux Disease (Gerd) The patient is advised to continue with lifestyle modifications and medications to manage GERD symptoms. 2. Hypercholesterolemia The patient is on rosuvastatin 20 mg daily, with LDL cholesterol well-controlled at 74 mg/dL. 3. Chronic Obstructive Pulmonary Disease (Copd) The patient reports no recent exacerbations and is advised to continue regular follow-ups and management. 4. Osteoarthritis Of Bilateral Knees The patient is encouraged to continue regular exercise to manage symptoms and maintain joint function. 5. Osteopenia The patient is advised to continue weight-bearing exercises and ensure adequate calcium and vitamin D intake. 6. Preventative Care The patient is scheduled for a mammogram in February and has completed a bone density test in March 2024. She is also scheduled for COVID and flu vaccinations on December 22. Discussion Notes During the visit, I discussed the importance of continuing lifestyle modifications and medication adherence for managing GERD and hypercholesterolemia. We reviewed the patient's current management plan for COPD and osteoarthritis, emphasizing regular exercise and follow-ups. I advised the patient on the significance of maintaining bone health through weight-bearing exercises and adequate calcium and vitamin D intake due to her osteopenia. Preventative care measures, including upcoming mammogram and vaccinations, were also discussed. Patient Instructions - Continue lifestyle modifications and take medications as prescribed for GERD and cholesterol management. - Engage in regular exercise to manage osteoarthritis and maintain joint function. - Ensure adequate calcium and vitamin D intake to support bone health. - Attend scheduled mammogram in February and vaccinations on December 22. Orders: Orders Complete Blood Count Auto Diff Today E78.00 - Pure hypercholesterolemia, unspecified Magnesium Today E78.00 - Pure hypercholesterolemia, unspecified Lipid Panel Today E78.00 - Pure hypercholesterolemia, unspecified Thyroid Stimulating Hormone 6 Months E78.00 - Pure hypercholesterolemia, unspecified Vitamin B12 and Folate Today E78.00 - Pure hypercholesterolemia, unspecified Vitamin D 25-OH Total Today E78.00 - Pure hypercholesterolemia, unspecified UA CC w/rflx Micro + Cult Today E78.00 - Pure hypercholesterolemia, unspecified, R30.0 - Dysuria Comprehensive Met. Panel Today E78.00 - Pure hypercholesterolemia, unspecified Free T4 (Free Thyroxine) Today E78.00 - Pure hypercholesterolemia, unspecified Hemoglobin A1c Today E78.00 - Pure hypercholesterolemia, unspecified
--- OUTSIDE RECORDS SUMMARY | 2024-12-11 09:16 | XMS_ITS | Encounter Summary ---
Author Organization [facility] Address [address] [facility] [address] [place] [address] Phone Care Team Providers Care Paperhanger Name Role Phone Checo Romero MD Primary Care Provider [phone] Checo Romero MD Unavailable Jose Brito MD Unavailable Ramiro Hernandez DO Unavailable Georgia Jha MD Unavailable [phone] Marilyn Duval MD Unavailable Paradise Obrien MD Unavailable Casie Stephens MD Unavailable Teetee Morales MD Unavailable [phone] Encounter Details Date Type Department Care Team (Late st Contact Info) Description 07/20/2017 Ancillary Orders Virtual Department [address] [place] [address] Checo Romero MD [address] [place] [address] Breast screening Social History Tobacco [...] st Contact Info) Description 08/08/2024 Procedure Pass [address] [address] 03/06/2025 1:15 PM EST Appointment [address] [address] Checo Romero MD [address] [place] [phone] documented as of this encounter Results [...] tissue is almost entirely fat. POS - [id number] Narrative 08/28/2017 4:01 PM EDT Bilateral mammography [...] tissue is almost entirely fat. POS - [id number] Checo Romero MD IMG MG EXAMS Final Result documented in this encounter Visit Diagnoses Diagnosis Breast screening Breast screening, unspecified Breast screening Breast screening, unspecified documented in this encounter Care Teams Paperhanger Relationship Specialty Start Date End Date Checo Romero MD [address] [place] [phone] PCP - General 01/11/17 Checo Romero MD [address] [place] [address] Drive [address] [place] [phone] Historical LMR Provider 01/13/17 Jose Brito MD [address] [place] [address] [email or web address] Historical LMR Provider 01/13/17 Ramiro Hernandez DO [address] [place] [address] Orthopedics & Sports Medicine, [place] [address] [email or web address] Historical LMR Provider 01/13/17 04/02/21 Georgia Jha MD [address], [place] [address] Historical LMR Provider 01/13/17 2 Marilyn Duval MD [address] [place] [phone] Historical LMR Provider 01/13/17 2 Paradise Obrien MD 4 [facility] Orthopedics & Sports Medicine, [facility] [place] [address] [email or web address] Historical LMR Provider 01/13/17 [place] [address] [email or web address] Historical LMR Provider 01/13/17 Teetee Morales MD [address], [place] [address] Historical LMR Provider 01/13/17 2 documented as of this encounter Additional Source Comments The information contained in this document represents components of the legal health record. It is not the complete legal health record.[facility]
--- OUTSIDE RECORDS SUMMARY | 2024-12-11 09:16 | XMS_ITS | Encounter Summary ---
Author Organization [facility] Address [address] [place] [address] Phone Care Team Providers Care Grain Elevator Man Name Role Phone Checo Romero MD Primary Care Provider [phone] Checo Romero MD Unavailable [phone] Jose Brito MD Unavailable [phone] Casie Stephens MD Unavailable [phone] Encounter Details Date Type Department Care Team (Late st Contact Info) Description 08/10/2021 Transcribe Orders Virtual Department [address] [place] [address] Teetee Morales MD [address] [place] [phone] Breast screening (Primary Dx) Social History Tobacco [...] (Late Contact Info) Description 08/08/2024 Procedure Pass [facility], Mamm[facility]- [facility] [address] [place] [address] 03/06/2025 1:15 PM EST Appointment [facility], Mammography- [facility] [address] [place] [address] Checo Romero MD [address] [place] [phone] documented as of this encounter Results * [...] unspecified documented in this encounter Care Teams Grain Elevator Man Relationship Specialty Start Date End Date Checo Romero MD [address] [place] [phone] PCP - General 01/11/17 Checo Romero MD [address] [place] [address] Drive [address] [place] [phone] Historical LMR Provider 01/13/17 Jose Brito MD [address] [place] [address] [email or web address] Historical LMR Provider 01/13/17 [place] [address] [email or web address] Historical LMR Provider 01/13/17 documented as of this encounter Additional Source Comments The information contained in this document represents components of the legal health record. It is not the complete legal health record.[facility]
--- OUTSIDE RECORDS SUMMARY | 2024-12-11 09:16 | XMS_ITS | Encounter Summary ---
Author Organization [facility] Address [address] [place] [address] Phone Care Team Providers Care Kiln Loader Name Role Phone Checo Romero MD Primary Care Provider [phone] Checo Romero MD Unavailable [phone] Jose Brito MD Unavailable [phone] Casie Stephens MD Unavailable [phone] Encounter Details Date Type Department Care Team (Late st Contact Info) Description 08/10/2021 Procedure Pass [address] [address] Social History Tobacco Use Types Packs/Day Years [...] st Contact Info) Description 08/08/2024 Procedure Pass [address] [address] 03/06/2025 1:15 PM EST Appointment [address] [address] Checo Romero MD [address] [place] [phone] documented as of this encounter Visit Diagnoses Not on filedocumented in this encounter Care Teams Kiln Loader Relationship Specialty Start Date End Date Checo Romero MD [address] [place] [phone] PCP - General 01/11/17 Checo Romero MD [address] [place] [phone] Historical LMR Provider 01/13/17 Jose Brito MD [address] [place] [address] [email or web address] Historical LMR Provider 01/13/17 [place] [address] [email or web address] Historical LMR Provider 01/13/17 documented as of this encounter Additional Source Comments The information contained in this document represents components of the legal health record. It is not the complete legal health record.[facility]
--- OUTSIDE RECORDS SUMMARY | 2024-12-11 09:16 | XMS_ITS | Encounter Summary ---
Author Organization [facility] Address [address] [facility] [address] [place] [address] Phone Care Team Providers Care Sewer Separation Designer Name Role Phone Checo Romero MD Primary Care Provider Checo Romero MD Unavailable Jose Brito MD Unavailable Ramiro Hernandez DO Unavailable Georgia Jha MD Unavailable [phone] Marilyn Duval MD Unavailable Paradise Obrien MD Unavailable Casie Stephens MD Unavailable Teetee Morales MD Unavailable [phone] Encounter Details Date Type Department Care Team (Late st Contact Info) Description 09/06/2020 Transcribe Orders Virtual Department 30 [place] [address] Checo Romero MD [address] [place] [phone] Breast screening (Primary Dx) Social History [...] st Contact Info) Description 08/08/2024 Procedure Pass [address] [address] 03/06/2025 1:15 PM EST Appointment [address] [address] Checo Romero MD [address] [place] [address] Drive [address] [place] [phone] documented as of this encounter Results [...] unspecified documented in this encounter Care Teams Sewer Separation Designer Relationship Specialty Start Date End Date Checo Romero MD 2 [facility] [address] [place] [phone] PCP - General 01/11/17 Checo Romero MD [address] [place] [address] [place] [phone] Historical LMR Provider 01/13/17 Jose Brito MD [address] [place] [address] [email or web address] Historical LMR Provider 01/13/17 Ramiro Hernandez DO [address] [place] [address] Orthopedics & Sports Medicine, [facility] [place] [address] [email or web address] Historical LMR Provider 01/13/17 04/02/21 Georgia Jha MD [address], [place] [address] Historical LMR Provider 01/13/17 Marilyn Ruiz MD [address] [place] [address] Historical LMR Provider 01/13/17 2 Paradise Obrien MD 4 [facility] [place] [address] [email or web address] Historical LMR Provider 01/13/17 [place] [address] [email or web address] Historical LMR Provider 01/13/17 Teetee Morales MD [address] [place], [place] Historical LMR Provider 01/13/17 2 documented as of this encounter Additional Source Comments The information contained in this document represents components of the legal health record. It is not the complete legal health record.[facility]
--- OUTSIDE RECORDS SUMMARY | 2024-12-11 09:16 | XMS_ITS | Clinical Summary ---
Author Organization [facility] Address [address] [place] [address] Phone Care Team Providers Care Screw Machine Operator Swiss Type Name Role Phone Checo Romero MD Primary Care Provider [phone] Checo Romero MD Unavailable [phone] Jose Brito MD Unavailable Casie Stephens [...] st Contact Info) Description 08/08/2024 Procedure Pass [facility], [facility]- [facility] 30 [place] [address] 03/06/2025 1:15 PM EST Appointment [facility], [facility] 30 [place] [address] Checo Romero MD [address] [place] [address] Drive [address] [place] [phone] Health Maintenance Due Date Last Done Comments [...] this topic Medical Devices Implanted Type Area Crushing Mill Operator Device Identifier Shelf Expiration Date Model / Serial / Lot Left Knee Replacement Plate Bone 71mm Knee Tibial Tray I Beam Locking Bar Boerne Chrome Maxim Ea Knee [id number] Implanted:Qty: 1 on 06/11/2017 by Jose Brito MD at [facility] Right: Knee [employer] 03/17/2027 [id number] / / [id number] Series A Pat W/Wr Std 34x8.5 1 Peg Knee [id number] Implanted:Qty: 1 on 06/11/2017 by Jose Brito MD at [facility] Right: Knee [employer] 03/02/2022 [id number] / / [id number] Implant Knee 65.0mm Femoral Component Interlok Vanguard Open Box Right Ea Knee 02 - [id number] Implanted:Qty: 1 on 06/11/2017 by Jose Brito MD at [facility] Right: Knee [employer] 03/15/2027 [id number] / / [id number] Cement Bone 40gr Boerne Ghv - [id number] Implanted:Qty: 2 on 06/11/2017 by Jose Brito MD at [facility] Right: Knee [employer] 06/23/2018 [id number] / [id number] / [id number] Knee Tibial 71/75 X 12 Bearing E1 Vanguard Ps - [id number] Implanted:Qty: 1 on 06/11/2017 by Jose Brito MD at [facility] Right: Knee [employer] 04/13/2022 -[id number] / / [id number] Insurance MEDICARE PART A & B [facility] MEDICARE SUPPLEMENT MEDICARE PART A & B [employer] MEDICARE SUPPLEMENT MEDICARE PART A & B [employer] MEDICARE SUPPLEMENT MEDICARE PART A & B [facility] MEDICARE SUPPLEMENT MEDICARE PART A & B [facility] MEDICARE SUPPLEMENT MEDICARE PART A & B [facility] MEDICARE SUPPLEMENT MEDICARE PART A & B [employer] MEDICARE SUPPLEMENT MEDICARE PART A & B [employer] MEDICARE SUPPLEMENT MEDICARE PART A & B [employer] [employer] MEDICARE SUPPLEMENT Advance Directives For more information, please contact: [phone] (9AM - 5PM [facility], Sunday-Sunday) Documents on File Type Date Recorded Patient Rn Travel Expl anation Healthcare Proxy 06/15/2017 3:52 PM * Full Code (Presumed) (Latest Code Status on File) Date Activated Date Inactivated Comments 06/11/2017 10:38 AM 06/14/2017 2:09 PM Healthcare Agents on File Name Relationship Healthcare Agent Relationship Communication Unk Unk Other .Primary Health Care Agent (Proxy form on file) Sukhjinder Raines Abdiel Relative Alternate H ealthcare Agent (Proxy form on file) Care Teams Screw Machine Operator Swiss Type Relationship Specialty Start Date End Date Checo Romero MD [address] [place] [address] PCP - General 01/11/17 Checo Romero MD [address] [facility] [address] [place] [address] Historical LMR Provider 01/13/17 Jose Brito MD [address] [place] [address] [email or web address] Historical LMR Provider 01/13/17 [place] [address] [email or web address] Historical LMR Provider 01/13/17 Additional Source Comments The information contained in this document represents components of the legal health record. It is not the complete legal health record.[facility]
--- OUTSIDE RECORDS SUMMARY | 2024-12-11 09:16 | XMS_ITS | Encounter Summary ---
Author Organization [facility] Address [address] [place] [address] Phone Care Team Providers Care Radiographer Mammographer Name Role Phone Checo Romero MD Primary Care Provider Checo Romero MD Unavailable Jose Brito MD Unavailable Ramiro Hernandez DO Unavailable Georgia Jha MD Unavailable Marilyn Duval MD Unavailable Paradise Obrien MD Unavailable Casie Stephens MD Unavailable Teetee Morales MD Unavailable Encounter Details Date Type Department Care Team (Late st Contact Info) Description 03/15/2017 Procedure Pass [facility], [address] [address] Social History Tobacco Use Types Packs/Day Years [...] Contact Info) Description 08/08/2024 Procedure Pass [address] [address] 03/06/2025 1:15 PM EST Appointment [address] [address] Checo Romero MD [address] [place] [address] [place] [phone] documented as of this encounter Visit Diagnoses Not on filedocumented in this encounter Care Teams Radiographer Mammographer Relationship Specialty Start Date End Date Checo Romero MD [address] [place] [phone] PCP - General 01/11/17 Checo Romero MD [address] [place] [phone] Historical LMR Provider 01/13/17 Jose Brito MD [address] [place] [address] [email or web address] Historical LMR Provider 01/13/17 Ramiro Hernandez DO [address] [place] [address] Orthopedics & Sports Medicine, [place] [address] [email or web address] Historical LMR Provider 01/13/17 04/02/21 Georgia Jha MD [address] [place] [address] Historical LMR Provider 01/13/17 Marilyn Ruiz MD [address] [place], [place] Historical LMR Provider 01/13/17 2 Paradise Obrien MD 4 [facility] Orthopedics & Sports Medicine, [facility] [place] [address] [email or web address] Historical LMR Provider 01/13/17 [place] [address] [email or web address] Historical LMR Provider 01/13/17 Teetee Morales MD [address], [place] Historical LMR Provider 01/13/17 2 documented as of this encounter Additional Source Comments The information contained in this document represents components of the legal health record. It is not the complete legal health record.[facility]
--- OUTSIDE RECORDS SUMMARY | 2024-12-11 09:16 | XMS_ITS | Encounter Summary ---
Author Organization [facility] Address [address] [facility] [address] [place] [address] Phone Care Team Providers Care Mattress Filling Machine Tender Name Role Phone Checo Romero MD Primary Care Provider [phone] Checo Romero MD Unavailable Jose Brito MD Unavailable Ramiro Hernandez DO Unavailable Georgia Jha MD Unavailable [phone] Marilyn Duval MD Unavailable Paradise Obrien MD Unavailable Casie Stephens MD Unavailable Teetee Morales MD Unavailable [phone] Encounter Details Date Type Department Care Team (Late st Contact Info) Description 06/19/2018 Ancillary Orders Virtual Department 30 [place] [address] Checo Romero MD [address] [facility] [address] [place] [address] Breast screening Social History Tobacco [...] st Contact Info) Description 08/08/2024 Procedure Pass [address] [address] 03/06/2025 1:15 PM EST Appointment [address] [address] Checo Romero MD [address] [facility] [address] [place] [phone] documented as of this encounter Results [...] unspecified documented in this encounter Care Teams Mattress Filling Machine Tender Relationship Specialty Start Date End Date Checo Romero MD [address] [place] [phone] PCP - General 01/11/17 Checo Romero MD [address] [place] [phone] Historical LMR Provider 01/13/17 Jose Brito MD [address] [place] [address] [email or web address] Historical LMR Provider 01/13/17 Ramiro Hernandez DO [address] [place] [address] Orthoped[facility], [place] [address] [email or web address] Historical LMR Provider 01/13/17 04/02/21 Georgia Jha MD [address], [place] [address] Historical LMR Provider 01/13/17 2 Marilyn Duval MD [address] [place] [address] Historical LMR Provider 01/13/17 2 Paradise Obrien MD [address] [place] [address] [facility], [place] [address] [email or web address] Historical LMR Provider 01/13/17 [place] [address] [email or web address] Historical LMR Provider 01/13/17 Teetee Morales MD [address] [place] [address] Historical LMR Provider 01/13/17 2 documented as of this encounter Additional Source Comments The information contained in this document represents components of the legal health record. It is not the complete legal health record.[facility]
--- OUTSIDE RECORDS SUMMARY | 2024-12-11 09:16 | XMS_ITS | Encounter Summary ---
Author Organization [facility] Address [address] [facility] [address] [place] [address] Phone Care Team Providers Care Steam Fitter Helper Name Role Phone Checo Romero MD Primary Care Provider [phone] Checo Romero MD Unavailable [phone] Jose Brito MD Unavailable Casie Stephens MD Unavailable [phone] Encounter Details Date Type Department Care Team (Late st Contact Info) Description 08/08/2024 Transcribe Orders Virtual Department 30 [place] [address] Checo Romero MD [address] [place] [phone] Breast screening (Primary Dx) Social History [...] st Contact Info) Description 08/08/2024 Procedure Pass [address] [address] 03/06/2025 1:15 PM EST Appointment [address] [address] Checo Romero MD [address] [place] [phone] Scheduled Orders Name Type Priority Associated Diagnoses Orde r Schedule Mammogram Screening (Bilateral) Imaging Routine Breast screening Expected: 08/08/2024, Expires: 08/08/2025 documented as of this encounter Visit Diagnoses Diagnosis Breast screening- Primary Breast screening, unspecified documented in this encounter Care Teams Steam Fitter Helper Relationship Specialty Start Date End Date Checo Romero MD [address] [place] [phone] PCP - General 01/11/17 Checo Romero MD [address] [place] [phone] Historical LMR Provider 01/13/17 Jose Brito MD [address] [place] [address] [email or web address] Historical LMR Provider 01/13/17 [place] [address] [email or web address] Historical LMR Provider 01/13/17 documented as of this encounter Additional Source Comments The information contained in this document represents components of the legal health record. It is not the complete legal health record.[facility]
--- OUTSIDE RECORDS SUMMARY | 2024-12-11 09:16 | XMS_ITS | Encounter Summary ---
Author Organization [facility] Address [address] [place] [address] Phone Care Team Providers Care Statement Request Clerk Name Role Phone Checo Romero MD Primary Care Provider Checo Romero MD Unavailable Jose Brito MD Unavailable Ramiro Hernandez DO Unavailable Georgia Jha MD Unavailable [phone] Marilyn Duval MD Unavailable Paradise Obrine MD Unavailable Casie Stephens MD Unavailable Teetee Morales MD Unavailable [phone] Encounter Details Date Type Department Care Team (Late st Contact Info) Description 09/06/2020 Procedure Pass [facility] [address] [place] [address] Social History Tobacco Use Types Packs/Day Years [...] st Contact Info) Description 08/08/2024 Procedure Pass [address] [address] 03/06/2025 1:15 PM EST Appointment [address] [address] Checo Romero MD [address] [place] [address] [place] [phone] documented as of this encounter Visit Diagnoses Not on filedocumented in this encounter Care Teams Statement Request Clerk Relationship Specialty Start Date End Date Checo Romero MD [address] [place] [phone] PCP - General 01/11/17 Checo Romero MD [address] [place] [phone] Historical LMR Provider 01/13/17 Jose Brito MD [address] [place] [address] [email or web address] Historical LMR Provider 01/13/17 Ramiro Hernandez DO [address] [place] [address] Orthopedics & Sports Medicine, [place] [address] [email or web address] Historical LMR Provider 01/13/17 04/02/21 Georgia Jha MD [address] [place] [address] Historical LMR Provider 01/13/17 Marilyn Ruiz MD [address] [place], [place] Historical LMR Provider 01/13/17 2 Paradise Obrien MD 4 [facility] Orthopedics & Sports Medicine, [facility] [place] [address] [email or web address] Historical LMR Provider 01/13/17 [place] [address] [email or web address] Historical LMR Provider 01/13/17 Teetee Morales MD [address], [place] Historical LMR Provider 01/13/17 2 documented as of this encounter Additional Source Comments The information contained in this document represents components of the legal health record. It is not the complete legal health record.[facility]
--- OUTSIDE RECORDS SUMMARY | 2024-12-11 09:17 | XMS_ITS | Encounter Summary ---
Author Organization [facility] Address [address] [facility] [address] [place] [address] Phone Care Team Providers Care Telemarketing Fundraiser Name Role Phone Checo Romero MD Primary Care Provider [phone] Checo Romero MD Unavailable [phone] Jose Brito MD Unavailable Casie Stephens MD Unavailable Encounter Details Date Type Department Care Team (Late st Contact Info) Description 08/15/2022 Transcribe Orders Virtual Department 30 [place] [address] Checo Romero MD [address] [place] [phone] Breast screening (Primary Dx) Social History [...] st Contact Info) Description 08/08/2024 Procedure Pass [address] [address] 03/06/2025 1:15 PM EST Appointment [address] [address] Checo Romero MD [address] [place] [address] Drive [address] [place] [phone] documented as of this encounter Results [...] unspecified documented in this encounter Care Teams Telemarketing Fundraiser Relationship Specialty Start Date End Date Checo Romero MD 2 [facility] [address] [place] [phone] PCP - General 01/11/17 Checo Romero MD [address] [place] [address] [address] [place] [phone] Historical LMR Provider 01/13/17 Jose Brito MD [address] [place] [address] [email or web address] Historical LMR Provider 01/13/17 [place] [address] [email or web address] Historical LMR Provider 01/13/17 documented as of this encounter Additional Source Comments The information contained in this document represents components of the legal health record. It is not the complete legal health record.[facility]
--- OUTSIDE RECORDS SUMMARY | 2024-12-11 09:17 | XMS_ITS | Encounter Summary ---
Author Organization [facility] Address [address] [place] [address] Phone Care Team Providers Care Clinical Assistant Professor Name Role Phone Checo Romero MD Primary Care Provider Checo Romero MD Unavailable Jose Brito MD Unavailable Ramiro Hernandez DO Unavailable Georgia Jha MD Unavailable [phone] Marilyn Duval MD Unavailable Paradise Obrien MD Unavailable Casie Stephens MD Unavailable Teetee Morales MD Unavailable [phone] Encounter Details Date Type Department Care Team (Late st Contact Info) Description 06/25/2017 Ancillary Orders [facility] Orthopedics & Sports Medicine [address] [place] [address] Lilia Shane PA-C [address] [place] [address] Orthopedics & Sports Medicine, [facility] [place] [address] Social History Tobacco Use Types [...] st Contact Info) Description 08/08/2024 Procedure Pass [address] [address] 03/06/2025 1:15 PM EST Appointment [address] [address] Checo Romero MD [address] [place] [address] [phone] documented as of this encounter Visit Diagnoses Not on filedocumented in this encounter Care Teams Clinical Assistant Professor Relationship Specialty Start Date End Date Checo Romero MD [address] [place] [address] [phone] PCP - General 01/11/17 Checo Romero MD 2 [facility] [address] [place] [address] [phone] Historical LMR Provider 01/13/17 Jose Brito MD [address] [place] [address] [email or web address] Historical LMR Provider 01/13/17 Ramiro Hernandez DO [address] [place] [address] Orthopedics & Sports Medicine, [place], [place] [phone] [email or web address] Historical LMR Provider 01/13/17 04/02/21 Georgia Jha MD [address] [place] [address] Historical LMR Provider 01/13/17 2 Marilyn Duval MD [address] [place] [address] Historical LMR Provider 01/13/17 2 Paradise Obrien MD [address] [place] [address] Orthopedics & Sports Medicine, [facility] [place] [address] [email or web address] Historical LMR Provider 01/13/17 [place] [address] [email or web address] Historical LMR Provider 01/13/17 Teetee Morales MD [address] [place], [place] Historical LMR Provider 01/13/17 2 documented as of this encounter Additional Source Comments The information contained in this document represents components of the legal health record. It is not the complete legal health record.[facility]
--- OUTSIDE RECORDS SUMMARY | 2024-12-11 09:17 | XMS_ITS | Encounter Summary ---
Author Organization [facility] Address [address] [facility] [address] [place] [address] Phone Care Team Providers Care Shot Core Drill Operator Helper Name Role Phone Checo Romero MD Primary Care Provider [phone] Checo Romero MD Unavailable [phone] Jose Brito MD Unavailable Casie Stephens MD Unavailable Encounter Details Date Type Department Care Team (Late st Contact Info) Description 06/07/2023 Transcribe Orders Virtual Department [address] [place] [address] Checo Romero MD [address] [place] [phone] Breast screening (Primary Dx) Social History [...] st Contact Info) Description 08/08/2024 Procedure Pass [address] [address] 03/06/2025 1:15 PM EST Appointment [address] [address] Checo Romero MD [address] [place] [address] Drive [address] [place] [phone] documented as of this encounter Results [...] unspecified documented in this encounter Care Teams Shot Core Drill Operator Helper Relationship Specialty Start Date End Date Checo Romero MD [address] [place] [address] [place] [phone] PCP - General 01/11/17 Checo Romero MD [address] [place] [phone] Historical LMR Provider 01/13/17 Jose Brito MD [address] [place] [address] [email or web address] Historical LMR Provider 01/13/17 [place] [address] [email or web address] Historical LMR Provider 01/13/17 documented as of this encounter Additional Source Comments The information contained in this document represents components of the legal health record. It is not the complete legal health record.[facility]
--- OUTSIDE RECORDS SUMMARY | 2024-12-11 09:17 | XMS_ITS | Patient Health Record ---
Author Organization [facility] Address [address] [place] [phone] Care Team Providers Care Flosser Name Role Phone Checo Romero MD Primary [...] Problem Status W/U Status Risk Notes Problem [id number] Colon cancer screening (Z12.11) Active confirmed Problem 902714353 Colitis (K52.9) Active confirmed Problem [id number] Long-term curren t use of high risk medication other than anticoagulant (Z79.899) Active confirmed Plan Of Treatment Future Test Test Name Order Date COLONOSCOPY 02/02/2016 COLONOSCOPY 08/10/2021 Insurance Providers Payer Name Payer Address Payer Phone Subscriber Number Group Number Insured Name Patient Relationship to Insured Coverage Start Date Coverage End Date MEDICARE OF [place] [address] [place] [address] [id number] PEPPER BROOKS Self - patient is the insured [facility] INDEMNITY [address] [place] [address] [id number] PEPPER BROOKS Self - patient is the insured Medical (General) History Medical History History ICD Code colonoscopy 2017, hyperplast ic polyp, five-year followup due to prior history of adenomas. 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
--- OUTSIDE RECORDS SUMMARY | 2024-12-11 09:17 | XMS_ITS | Encounter Summary ---
Author Organization [facility] Address [address] [place] [address] Phone Care Team Providers Care Shot Polisher Name Role Phone Checo Romero MD Primary Care Provider [phone] Checo Romero MD Unavailable [phone] Jose Brito MD Unavailable [phone] Casie Stephens MD Unavailable [phone] Encounter Details Date Type Department Care Team (Late st Contact Info) Description 10/06/2021 Procedure Pass [address] [address] Social History Tobacco Use Types Packs/Day Years [...] st Contact Info) Description 08/08/2024 Procedure Pass [address] [address] 03/06/2025 1:15 PM EST Appointment [address] [address] Checo Romero MD [address] [place] [address] [phone] documented as of this encounter Visit Diagnoses Not on filedocumented in this encounter Care Teams Shot Polisher Relationship Specialty Start Date End Date Checo Romero MD [address] [place] [address] [phone] PCP - General 01/11/17 Checo Romero MD [address] [place] [phone] Historical LMR Provider 01/13/17 Jose Brito MD [address] [place] [address] [email or web address] Historical LMR Provider 01/13/17 [place] [address] [email or web address] Historical LMR Provider 01/13/17 documented as of this encounter Additional Source Comments The information contained in this document represents components of the legal health record. It is not the complete legal health record.[facility]
--- OUTSIDE RECORDS SUMMARY | 2024-12-11 09:17 | XMS_ITS | Encounter Summary ---
Author Organization [facility] Address [address] [facility] [address] [place] [address] Phone Care Team Providers Care Station Chief Name Role Phone Checo Romero MD Primary Care Provider [phone] Checo Romero MD Unavailable [phone] Jose Brito MD Unavailable [phone] Casie Stephens MD Unavailable [phone] Encounter Details Date Type Department Care Team (Late st Contact Info) Description 08/15/2022 Procedure Pass [facility], [address] [address] Social History Tobacco Use Types Packs/Day Years [...] st Contact Info) Description 08/08/2024 Procedure Pass [address] [address] 03/06/2025 1:15 PM EST Appointment [address] [address] Checo Romero MD [address] [facility] [address] [place] [address] [phone] documented as of this encounter Visit Diagnoses Not on filedocumented in this encounter Care Teams Station Chief Relationship Specialty Start Date End Date Checo Romero MD [address] [place] [address] [phone] PCP - General 01/11/17 Checo Romero MD [address] [place] [phone] Historical LMR Provider 01/13/17 Jose Brito MD [address] [place] [address] [email or web address] Historical LMR Provider 01/13/17 [place] [address] [email or web address] Historical LMR Provider 01/13/17 documented as of this encounter Additional Source Comments The information contained in this document represents components of the legal health record. It is not the complete legal health record.[facility]
--- OUTSIDE RECORDS SUMMARY | 2024-12-11 09:17 | XMS_ITS | Encounter Summary ---
Author Organization [facility] Address [address] [place] [address] Phone Care Team Providers Care Machine Finisher Name Role Phone Checo Romero MD Primary Care Provider [phone] Checo Romero MD Unavailable Jose Brito MD Unavailable Ramiro Hernandez DO Unavailable Georgia Jha MD Unavailable [phone] Marilyn Duval MD Unavailable Paradise Obrien MD Unavailable Casie Stephens MD Unavailable Teetee Morales MD Unavailable [phone] Encounter Details Date Type Department Care Team (Late st Contact Info) Description 08/05/2019 Ancillary Orders Virtual Department [address] [place] [address] [place] [address] [email or web address] Breast screening Social History Tobacco Use Types [...] st Contact Info) Description 08/08/2024 Procedure Pass [address] [address] 03/06/2025 1:15 PM EST Appointment [address] [address] Checo Romero MD [address] [facility] [address] [place] [phone] documented as of this encounter Results [...] There are scattered fibroglandular densities. POS - [id number] Narrative 09/25/2019 12:15 PM EDT Standard digital [...] nipple retraction and bilateral punctate and coarse pwtrpm-qksjhbzsh-updqgksjt microcalcifications and vascular calcifications. Procedure Note Concetta Lyn MD - 09/25/2019 Standard digital full-field 2-D C view and two-plane tomographic imagingwas performed and compared with multiple prior studies, most /07/2019, with utilization of computer-aided detection. The breasts are composed of scattered fibroglandular densities. Thestromal markings are essentially unchanged in overall appearance anddistribution. No dominant spiculated mass, suspicious clusteredmicrocalcifications, or focal zone of pathologic skin thickening orretraction are noted to have arisen in the interim. There is chronicgrossly stable left nipple retraction and bilateral punctate and eccajxkgfsuj-nfqlfnnwc-usrhyhfap microcalcifications and vascularcalcifications. IMPRESSION: No mammographic evidence of malignancy. Stable left nipple retraction.Continued annual screening mammography recommended. BI-RADS CATEGORY: 2 - Benign finding. DENSITY: There are scattered fibroglandular densities. POS - [id number] Casie Stephens MD IMG MG EXAMS Final Res ult documented in this encounter Visit Diagnoses Diagnosis Breast screening Breast screening, unspecified Breast screening Breast screening, unspecified documented in this encounter Care Teams Machine Finisher Relationship Specialty Start Date End Date Checo Romero MD [address] [facility] [address] [place] [phone] PCP - General 01/11/17 Checo Romero MD [address] [facility] [address] [place] [phone] Historical LMR Provider 01/13/17 Jose Brito MD [address] [place] [address] [phone] [email or web address] Historical LMR Provider 01/13/17 Ramiro Hernandez DO [address] [place] [address] Orthopedics & Sports Medicine, [place], [place] [phone] [email or web address] Historical LMR Provider 01/13/17 04/02/21 Georgia Jha MD [address] [place] [address] Historical LMR Provider 01/13/17 2 Marilyn Duval MD [address] [place] [phone] Historical LMR Provider 01/13/17 2 Paradise Obrien MD [address] [place] [address] Orthopedics & Sports Medicine, [place] [address] [email or web address] Historical LMR Provider 01/13/17 [place] [address] [email or web address] Historical LMR Provider 01/13/17 Teetee Morales MD [address] [place], [place] Historical LMR Provider 01/13/17 2 documented as of this encounter Additional Source Comments The information contained in this document represents components of the legal health record. It is not the complete legal health record.[facility]
--- OUTSIDE RECORDS SUMMARY | 2024-12-11 09:17 | XMS_ITS | Encounter Summary ---
Author Organization [facility] Address [address] [place] [address] Phone Care Team Providers Care Crib Clerk Name Role Phone Checo Romero MD Primary Care Provider Checo Romero MD Unavailable Jose Brito MD Unavailable Ramiro Hernandez DO Unavailable Georgia Jha MD Unavailable [phone] Marilyn Duval MD Unavailable Paradise Obrien MD Unavailable Casie Stephens MD Unavailable Teetee Morales MD Unavailable [phone] Encounter Details Date Type Department Care Team (Late st Contact Info) Description 06/25/2017 Ancillary Orders [address] [phone] Lilia Shane PA-C [address] [place] [address] Orthopedics & Sports Medicine, [place], [place] [phone] [email or web address] Right knee pain, unspecified chronicity Social History [...] Contact Info) Description 08/08/2024 Procedure Pass [address] [address] 03/06/2025 1:15 PM EST Appointment [address] [address] Checo Romero MD [address] [facility] [address] [place] [address] [phone] documented as of this encounter Results * [...] chronicity documented in this encounter Care Teams Crib Clerk Relationship Specialty Start Date End Date Checo Romero MD [address] [place] [phone] PCP - General 01/11/17 Checo Romero MD [address] [facility] [facility] [address] [place] [phone] Historical LMR Provider 01/13/17 Jose Brito MD [address] [place] [address] [email or web address] Historical LMR Provider 01/13/17 Ramiro Hernandez DO [address] [place] [address] Orthopedics Sports [facility], [place] [address] [email or web address] Historical LMR Provider 01/13/17 04/02/21 Georgia Jha MD [address] [address] Historical LMR Provider 01/13/17 2 Marilyn Duval MD [address] [place] [address] Historical LMR Provider 01/13/17 2 Paradise Obrien MD [address] [place] [address] Orthopedics Sports [facility], [place] [address] [email or web address] Historical LMR Provider 01/13/17 [place] [address] [email or web address] Historical LMR Provider 01/13/17 Teetee Morales MD [address] [place], [place] Historical LMR Provider 01/13/17 2 documented as of this encounter Additional Source Comments The information contained in this document represents components of the legal health record. It is not the complete legal health record.[facility]
--- OUTSIDE RECORDS SUMMARY | 2024-12-11 09:17 | XMS_ITS | Encounter Summary ---
Author Organization [facility] Address [address] [place] [address] Phone Care Team Providers Care Flavorer Name Role Phone Checo Romero MD Primary Care Provider Checo Romero MD Unavailable Jose Brito MD Unavailable Ramiro Hernandez DO Unavailable Georgia Jha MD Unavailable [phone] Marilyn Duval MD Unavailable Paradise Obrien MD Unavailable Casie Stephens MD Unavailable Teetee Morales MD Unavailable Encounter Details Date Type Department Care Team (Late st Contact Info) Description 06/11/2017 Procedure Pass OR Admitting Dept - Virtual Department [address] [place] [address] Social History Tobacco Use Types Packs/Day Years [...] st Contact Info) Description 08/08/2024 Procedure Pass [address] [address] 03/06/2025 1:15 PM EST Appointment [address] [address] Checo Romero MD [address] [place] [address] [place] [address] [phone] documented as of this encounter Visit Diagnoses Not on filedocumented in this encounter Care Teams Flavorer Relationship Specialty Start Date End Date Checo Romero MD [address] [place] [phone] PCP - General 01/11/17 Checo Romero MD [address] [place] [phone] Historical LMR Provider 01/13/17 Jose Brito MD [address] [place] [address] [email or web address] Historical LMR Provider 01/13/17 Ramiro Hernandez DO [address] [place] [address] Orthopedics & Sports Medicine, [place] [address] [email or web address] Historical LMR Provider 01/13/17 04/02/21 Georgia Jha MD [address] [place] [address] Historical LMR Provider 01/13/17 Marilyn Ruiz MD [address] [place], [place] Historical LMR Provider 01/13/17 2 Paradise Obrien MD [address] [place] [address] Orthopedics & Sports Medicine, [facility] [place] [address] [email or web address] Historical LMR Provider 01/13/17 [place] [address] [email or web address] Historical LMR Provider 01/13/17 Teetee Morales MD [address], [place] Historical LMR Provider 01/13/17 2 documented as of this encounter Additional Source Comments The information contained in this document represents components of the legal health record. It is not the complete legal health record.[facility]
--- OUTSIDE RECORDS SUMMARY | 2024-12-11 09:17 | XMS_ITS | Encounter Summary ---
Author Organization [facility] Address [address] [facility] [address] [place] [address] Phone Care Team Providers Care Waterproof Bag Sewer Name Role Phone Checo Romero MD Primary Care Provider [phone] Checo Romero MD Unavailable [phone] Jose Brito MD Unavailable [phone] Casie Stephens MD Unavailable [phone] Encounter Details Date Type Department Care Team (Late st Contact Info) Description 06/07/2023 Procedure Pass [facility], [address] [address] Social History Tobacco Use Types Packs/Day Years [...] st Contact Info) Description 08/08/2024 Procedure Pass [address] [address] 03/06/2025 1:15 PM EST Appointment [address] [address] Checo Romero MD [address] [place] [address] [phone] documented as of this encounter Visit Diagnoses Not on filedocumented in this encounter Care Teams Waterproof Bag Sewer Relationship Specialty Start Date End Date Checo Romero MD [address] [place] [address] [phone] PCP - General 01/11/17 Checo Romero MD [address] [place] [phone] Historical LMR Provider 01/13/17 Jose Brito MD [address] [place] [address] [email or web address] Historical LMR Provider 01/13/17 [place] [address] [email or web address] Historical LMR Provider 01/13/17 documented as of this encounter Additional Source Comments The information contained in this document represents components of the legal health record. It is not the complete legal health record.[facility]
== END 2024-12-11 09:04 | disposition home or self-care (01) ==
PROVIDERS: PCP Internal Medicine; Visit Provider Internal Medicine
DX: E78.00 Pure hypercholesterolemia, unspecified (principal); R73.01 Impaired fasting glucose; E66.3 Overweight; J43.9 Emphysema, unspecified; K21.9 Gastro-esophageal reflux disease without esophagitis

== ENCOUNTER → 2024-12-11 08:18 | Outpatient (BNVA) | payer MEDICARE, OTHER, SELFPAY | PROVIDERS: PCP Internal Medicine; Visit Provider Internal Medicine | DX: E78.00 Pure hypercholesterolemia, unspecified (principal); R73.01 Impaired fasting glucose; E66.3 Overweight; J43.9 Emphysema, unspecified; K21.9 Gastro-esophageal reflux disease without esophagitis | CPT/HCPCS: 99212 ==

== ENCOUNTER 2025-03-03 12:56 | Outpatient (AMB) | payer MEDICARE, OTHER, SELFPAY ==
--- NOTE | 2025-03-03 13:04 | A.OFFVIS_ITS ---
VS Expanded 03/03/25 13:05 Height 5 ft 4 in Weight 178 lb BMI 30.6 Intake Visit Reasons: IFG Allergies loratadine (Claritin) Allergy (Mild, Verified 12/11/24 08:23) Anxiety guaifenesin (From Mucinex) Adverse Reaction (Verified 12/11/24 08:23) Diarrhea Robitussin Maximum Strength Allergy (Mild, Uncoded 12/11/24 08:23) Anxiety Nutrition Presentation Details: Pt presents for MNT f/u for obesity Pt admits to increase intake of empty calorie foods Patient reports having 3 meals a day and working on following healthy plate method however acknowledges increasing intake of empty calorie foods as snacks Participates in physical activity 3 times a week for 45-60 minute BS Monitoring Most Recent Diabetes Results: Cholesterol, (<200) 140 mg/dL 12/05/24 HDL Cholesterol, (>40) 51 mg/dL 12/05/24 Triglycerides, (<150) 79 mg/dL 12/05/24 Creatinine, (0.5-1.4) 0.84 mg/dL 12/05/24 BUN, (9-16) 16 mg/dL 12/05/24 Sodium, (135-145) 143 mmol/L 12/05/24 Potassium, (3.3-5.1) 4.4 mmol/L 12/05/24 Chloride, (96-108) 109 mmol/L H 12/05/24 Carbon Dioxide, (22-29) 26 mmol/L 12/05/24 Calcium, (8.4-10.2) 9.3 mg/dL 12/05/24 AST, (5-31) 22 U/L 12/05/24 ALT, (0-31) 17 U/L 12/05/24 Total Protein, (6.5-8.0) 7.6 g/dL 12/05/24 Albumin, (3.5-5.0) 4.5 g/dL 12/05/24 [facility] Medical History Age-related osteoporosis without current pathological fracture Fibroids 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 Pulmonary nodules Diverticular disease Pancreatic mass COPD (chronic obstructive pulmonary disease) Allergic rhinitis GERD (gastroesophageal reflux disease) Hypercholesterolemia Surgical History H/O colonoscopy History of arthroplasty of right knee History of left knee replacement Lipoma Social History Housing: House Alcohol intake: never Patient Tobacco Use Status: Never used Tobacco Tobacco use type: Cigarette e-Cigarette/Vaping Use: Never Used Second Hand Smoke Exposure: No service: No Current occupational status: retired Cognitive needs: No Hearing needs: No Vision needs: Yes Assessment & Plan Assessment & Plan (1) Impaired fasting blood sugar: Code(s): R73.01 - Impaired fasting glucose Category: Medical Plan: Wt: 79 Kg (07/18 ), 78 kg(09/17), 12/18, 80 kg(03/19) Est kcal needs as per MSJ: 1700 (40% carb, 30% protein/fat) Est fluid needs as per 25-30 ml/d: 2400 Est prot per day as per 1 g/kg bw: 80 Recommend fiber intake : 8-10 g per day and gradually increase to 25-28 g per day for women and 35-38 g for men or as tolerated Recommend sodium intake per day : less than 2000 mg Educated patient on: ( R = reviewed V = verbalizes understanding N/R = needs review N/A = not applicable * Food sources of carbohydrate, adequate serving sizes and its role in various health conditions: R * Differences between complex carbohydrates a simple carbohydrates, role of fiber in diet: R * Lean protein sources of foods: R * Differences between types of fats and role in diet (mono on saturated fat fatty acids, saturated fatty acids, trans fats): R basic * Food sources of sodium in salt and healthy modifications for heart health in kidney health: R V R/V * Vitamins and minerals: R * Healthy plate method concept: R * Physical activity: Benefits a precaution: R * Hypoglycemia protocol (rule of 15): R V N/R * Dietary prevention of Hyperglycemia: R,V Patient Instructions: Resume reducing intake of sugars and empty calorie snacks Keep hydrated by having water with meals or her, fruit flavored pepper low in sugar Work on weight loss reducing 10 lb and keeping the mall (goal weight 165-168 lb), reducing calories from empty calorie Coding Level of Care Code Nutr Indiv Subseq (28146) Diagnoses Impaired fasting blood sugar R73.01 Time Spent (min) 30
[2025-03-03 13:05] VITALS: BMI 30.6
== END 2025-03-03 13:32 | disposition home or self-care (01) ==
LOC: HO.ENCR 12:57
PROVIDERS: PCP Internal Medicine; Visit Provider Dietitian, Registered
DX: R73.01 Impaired fasting glucose (principal)

== ENCOUNTER → 2025-03-03 12:56 | Outpatient (BNVA) | payer MEDICARE, OTHER, SELFPAY | PROVIDERS: PCP Internal Medicine; Visit Provider Dietitian, Registered | DX: R73.01 Impaired fasting glucose (principal); E66.01 Morbid (severe) obesity due to excess calories; Z68.30 Body mass index [BMI] 30.0-30.9, adult; Z71.3 Dietary counseling and surveillance | CPT/HCPCS: 97803 ==